=== PATIENT | female | born 1985 | race Caucasian/White ===

== ENCOUNTER → 2017-09-13 12:03 | Outpatient (CLI) | payer MEDICAID, SELFPAY ==
[2017-09-14 08:58] LABS: HIV - WCH Non-Reactive (Nonreactive)
[2017-09-14 20:08] LABS: HCV Quant. RNA PCR HCV Not Detected IU/mL (.)
[2017-09-15 08:22] LABS: HEPATITIS B SURFACE AG Negative (Negative); HSV 1 IgG < 0.91 index (0.00-0.90); HSV 2 IgG < 0.91 index (0.00-0.90)
[2017-09-16 03:45] LABS: Rapid Plasmin Reagin (RPR) NONREACTIVE (NONREACTIVE)
== END ==
PROVIDERS: Family Provider Family Medicine; PCP Family Medicine; Visit Provider Nurse Practitioner Women's Health
DX: Z11.3 Encounter for screening for infections with a predominantly sexual mode of transmission (principal)
CPT/HCPCS: 36415; 86592; 86695; 86696; 86703; 87340; 87491; 87522; 87591

== ENCOUNTER → 2017-09-13 14:14 | Outpatient (CLI) | payer MEDICAID, SELFPAY ==
[2017-09-13 15:59] LABS: Chlamydia Trachomatis by PCR Negative (Negative); Neisserai gonorrhoeae by PCR Negative (Negative); Probe Check PASS; Sample Adequacy Control PASS; Specimen Processing Control PASS
== END ==
PROVIDERS: Family Provider Family Medicine; Visit Provider Nurse Practitioner Women's Health
DX: Z11.3 Encounter for screening for infections with a predominantly sexual mode of transmission (principal)
CPT/HCPCS: 87491; 87591

== ENCOUNTER → 2018-12-01 16:36 | Outpatient (CLI) | payer MEDICAID, SELFPAY ==
[2018-12-01 15:44] VITALS: BMI 39.4
[2018-12-01 18:32] LABS: Chlamydia Trachomatis by PCR Negative (Negative); Neisserai gonorrhoeae by PCR Negative (Negative); Probe Check PASS; Sample Adequacy Control PASS; Specimen Processing Control PASS
== END ==
PROVIDERS: Family Provider Family Medicine; PCP Family Medicine; Referring Provider Nurse Practitioner Women's Health; Visit Provider Nurse Practitioner Women's Health
DX: N89.8 Other specified noninflammatory disorders of vagina (principal); Z11.3 Encounter for screening for infections with a predominantly sexual mode of transmission
CPT/HCPCS: 87070; 87205; 87491; 87591

== ENCOUNTER → 2019-01-04 17:16 | Outpatient (CLI) | payer MEDICAID, SELFPAY ==
[2019-01-04 15:24] VITALS: BMI 39.4
== END ==
PROVIDERS: Family Provider Family Medicine; PCP Family Medicine; Referring Provider Nurse Practitioner Women's Health; Visit Provider Nurse Practitioner Women's Health
DX: N76.0 Acute vaginitis (principal)
CPT/HCPCS: 87070; 87205

== ENCOUNTER → 2019-08-21 15:46 | Outpatient (CLI) | payer MEDICAID, SELFPAY ==
[2019-08-21 11:21] VITALS: BMI 39.4
[2019-08-21 18:06] LABS: Chlamydia Trachomatis by PCR Negative (Negative); Neisserai gonorrhoeae by PCR Negative (Negative); Probe Check PASS; Sample Adequacy Control PASS; Specimen Processing Control PASS
== END ==
PROVIDERS: PCP Family Medicine; Referring Provider Nurse Practitioner Women's Health; Visit Provider Nurse Practitioner Women's Health
DX: Z11.3 Encounter for screening for infections with a predominantly sexual mode of transmission (principal); N76.0 Acute vaginitis
CPT/HCPCS: 87070; 87205; 87491; 87591

== ENCOUNTER → 2019-10-11 11:30 | Outpatient (CLI) | payer MEDICAID, SELFPAY ==
[2019-10-11 11:52] VITALS: BMI 39.4
[2019-10-11 19:58] LABS: Chlamydia Trachomatis by PCR Negative (Negative); Neisserai gonorrhoeae by PCR Negative (Negative); Probe Check PASS; Sample Adequacy Control PASS; Specimen Processing Control PASS
== END ==
PROVIDERS: Nurse Practitioner Women's Health; PCP Family Medicine; Referring Provider Obstetrics & Gynecology; Visit Provider Obstetrics & Gynecology
DX: Z11.3 Encounter for screening for infections with a predominantly sexual mode of transmission (principal)
CPT/HCPCS: 87491; 87591

== ENCOUNTER → 2019-11-07 14:45 | Outpatient (CLI) | payer MEDICAID, SELFPAY ==
[2019-11-07 14:25] VITALS: BMI 39.4
[2019-11-07 16:13] LABS: HIV - WCH Non-Reactive (Nonreactive)
[2019-11-08 00:55] LABS: Rapid Plasmin Reagin (RPR) NONREACTIVE (NONREACTIVE)
[2019-11-11 06:48] LABS: HCV Quant. RNA PCR HCV Not Detected IU/mL (.)
[2019-11-11 11:15] LABS: HSV 1 IgG < 0.91 index (0.00-0.90); HSV 2 IgG < 0.91 index (0.00-0.90)
== END ==
PROVIDERS: PCP Family Medicine; Referring Provider Nurse Practitioner Women's Health; Visit Provider Nurse Practitioner Women's Health
DX: Z11.3 Encounter for screening for infections with a predominantly sexual mode of transmission (principal); N89.8 Other specified noninflammatory disorders of vagina
CPT/HCPCS: 36415; 86592; 86695; 86696; 86703; 87070; 87205; 87522

== ENCOUNTER → 2019-12-06 16:24 | Outpatient (CLI) | payer MEDICAID, SELFPAY ==
[2019-12-06 15:32] VITALS: BMI 36.3
== END ==
PROVIDERS: PCP Family Medicine; Referring Provider Nurse Practitioner Women's Health; Visit Provider Nurse Practitioner Women's Health
DX: N89.8 Other specified noninflammatory disorders of vagina (principal); R30.0 Dysuria
CPT/HCPCS: 87070; 87086; 87088; 87205

== ENCOUNTER → 2020-02-21 09:56 | Outpatient (CLI) | payer MEDICAID, SELFPAY ==
[2020-02-20 17:09] VITALS: BMI 39.4
[2020-02-21 10:20] LABS: Mucous, Urine 0 SEEN /hpf (<or=2+)
[2020-02-21 10:27] LABS: Color, Urine Yellow (Yellow); Glucose, Dipstick Normal (Normal); Ketone-Dipstick Negative (Negative); Leukocyte Esterase-Dipstick 500 /ul (Negative); Nitrite-Dipstick Negative (Negative); Occult Blood-Urine 25 /ul (Negative); Protein-Dipstick 15 mg/dl (Negative); Urine Bilirubin Dipstick Negative (Negative); Urine Clarity Sl. Cloudy (Clear); Urine Urobilinogen Normal (Normal)
[2020-02-21 10:38] LABS: Bacteria 1+ /hpf (None Seen); Red Blood Cells-Urine 0-5 SEEN /hpf (0-5); Squamous Epithelial Cells - UA 0-5 SEEN /hpf (5-10); White Blood Cells 25-50 SEEN /hpf (0-5)
== END ==
PROVIDERS: PCP Family Medicine; Referring Provider Physician Assistant; Visit Provider Physician Assistant
DX: R35.0 Frequency of micturition (principal)
CPT/HCPCS: 81001; 87086; 87088

== ENCOUNTER → 2020-02-29 16:52 | Outpatient (CLI) | payer MEDICAID, SELFPAY ==
[2020-02-29 13:41] VITALS: BMI 39.4
[2020-03-04 20:07] LABS: Chlamydia By Nucleic Acid AMP Negative (Negative)
[2020-03-04 20:49] LABS: Gonococcus By Nucleic Acid AMP Negative (Negative)
== END ==
PROVIDERS: PCP Family Medicine; Referring Provider Obstetrics & Gynecology; Visit Provider Obstetrics & Gynecology
DX: Z11.3 Encounter for screening for infections with a predominantly sexual mode of transmission (principal); N89.8 Other specified noninflammatory disorders of vagina; R30.0 Dysuria
CPT/HCPCS: 87070; 87086; 87205; 87491; 87591

== ENCOUNTER → 2020-03-19 16:49 | Outpatient (CLI) | payer MEDICAID, SELFPAY ==
[2020-03-19 14:31] VITALS: BMI 32.5
[2020-03-24 14:27] LABS: HPV APTIMA, High Risk Negative (Negative)
== END ==
PROVIDERS: PCP Family Medicine; Visit Provider Nurse Practitioner Women's Health
DX: Z12.4 Encounter for screening for malignant neoplasm of cervix (principal); N89.8 Other specified noninflammatory disorders of vagina
CPT/HCPCS: 87070; 87205; 87624; 88175; G0145

== ENCOUNTER → 2021-11-03 | Outpatient (CLI) | payer MEDICAID, SELFPAY ==
[2021-11-05 22:07] LABS: Chlamydia By Nucleic Acid AMP Negative (Negative)
[2021-11-06 08:46] LABS: Gonococcus By Nucleic Acid AMP Negative (Negative)
== END | disposition home or self-care (01) ==
LOC: LABSPEC 16:37
PROVIDERS: PCP Family Medicine; Visit Provider Nurse Practitioner Women's Health
DX: Z11.3 Encounter for screening for infections with a predominantly sexual mode of transmission (principal)
CPT/HCPCS: 87491; 87591

== ENCOUNTER → 2021-12-30 | Outpatient (CLI) | payer MEDICAID, SELFPAY | END | disposition home or self-care (01) | LOC: LABSPEC 16:38 | PROVIDERS: PCP Family Medicine; Visit Provider Obstetrics & Gynecology | DX: N89.8 Other specified noninflammatory disorders of vagina (principal) | CPT/HCPCS: 87070; 87205 ==

== ENCOUNTER 2022-07-28 07:13 | Emergency (ER) | payer BC, MEDICAID, SELFPAY ==
[2022-07-28 07:14] VITALS: BP 143/95; PULSE 87; RESP 16; TEMP 36.6; O2SAT 99; BMI 33.7
--- NOTE | 2022-07-28 07:48 | ED.VIS.LOWEX ---
HPI History of Present Illness Chief Complaint: Laceration Narrative Narrative: 37-year-old female presenting with laceration to the right foot. It is at the plantar surface of the fifth toe and somewhat extends into the fourth and fifth space. Patient states he was walking on the stairs and stepped on a bed frame that was in the hallway. She states bleeding was well controlled. She does have some pain in the right fifth toe and the area between her fourth and fifth toes. She has been ambulatory. Last tetanus unknown. PFSH PFS Medical History Anxiety delivery delivered Dandruff in adult Depression Seasonal allergies Home Medications atomoxetine 40 mg capsule 100 mg PO DAILY 02/20/20 [History Last Taken Unknown] venlafaxine 75 mg capsule,extended release 24 hr 150 mg PO DAILY 03/19/20 [History Last Taken Unknown] buspirone 15 mg tablet 10 mg PO DAILY 11/03/21 [History Last Taken Unknown] desogestrel 0.15 mg-ethinyl estradiol 0.03 mg tablet (Apri) 1 tab PO QDAY #84 tabs 11/03/21 [Rx Last Taken Unknown] Allergy/AdvReac Type Severity Reaction Status Date / Time bee venom protein (honey bee) Allergy Intermediate Swelling Verified 07/28/22 07:14 beeswax Allergy Swelling Verified 07/28/22 07:14 Family History Grandmother Breast cancer Mother celiac Father Alcohol abuse Aunt Pancreatic cancer Surgical History H/O tooth extraction History of ear surgery History of wisdom tooth extraction, class II edentulism Social History current occupational status: employed current occupation: [employer] Smoking Status: Never smoker alcohol intake: current alcohol intake frequency: holidays/special occasions only substance use type: does not use caffeine: Yes what type of physical activity do you participate in: none seatbelt use: always do you feel safe at home: Yes ROS ROS ED Constitutional Constitutional ED: Denies chills, fever(s) or sweats Eyes Eyes: Denies blurry vision or change in vision ENT ENT ED: Denies ear pain or sore throat Cardiovascular Cardiovascular: Denies chest pain, palpitations or racing heartbeat Respiratory/Chest Respiratory/Chest: Denies cough, dyspnea or sputum Gastrointestinal Gastrointestinal: Denies abdominal pain, constipation, diarrhea, nausea or vomiting Genitourinary Genitourinary ED: Denies dysuria, hematuria or urinary frequency Musculoskeletal Musculoskeletal: Denies arthralgias, myalgias or neck pain Integumentary Reports other Details: Laceration base of fifth toe ; Denies abscess or rash Neurologic Neurologic: Denies headache(s), paresthesias or weakness Psychiatric Psychiatric: Denies anxiety, depression, suicidal ideation or suicidal thoughts Endocrine Endocrinology: Denies polydipsia or polyuria EXAM Physical Exam Const Vital Signs: 07/28/22 07:14 07/28/22 09:00 Temperature 97.9 F 97.8 F Temperature Source Oral Pulse Rate 87 78 Respiratory Rate 16 16 Blood Pressure 143/95 H 134/78 H Blood Pressure Mean 111 Pulse Ox 99 99 Oxygen Delivery Method Room Air General Appearance ED: Negative for pallor HEENT Reports normocephalic, head/scalp atraumatic and moist mucous membranes Eyes PERRL and EOMs intact bilaterally Neck no lymphadenopathy and supple Chest Wall inspection of chest normal and palpation of chest normal Resp normal respiratory effort and clear to auscultation bilaterally Auscultation: Negative for rales, rhonchi or wheezes Cardio regular rate and regular rhythm GI normal to inspection, nondistended, normoactive bowel sounds and non-distended Auscultation: normoactive bowel sounds Palpation: soft Narrative: Deferred Back/Spine no CVA tenderness General Back: Negative for CVA tenderness Cervical Spine: Negative for cervical spine tenderness Extremity normal to inspection General Extremety ED: Yes edema and tenderness General Extremity: edema Neuro oriented x3 and CN's II-XII intact bilaterally Sensorium / Orientation: alert Motor Exam: strength 5/5 throughout Psych mental status grossly normal Attitude: No agitated Skin Skin Narrative: Laceration of the right plantar fifth toe extending from the midline to 1 cm medially. Good approximation of the wound margins. No active bleeding. Neurovascular intact brisk cap refill to all 5 toes. General Skin Exam: Negative for jaundice or pallor MDM MDM MDM Narrative Medical decision making narrative: Patient medicated with ibuprofen. Tetanus was updated. X-ray to assess for fracture. Patient would likely need a couple of sutures to pull this together with the right foot. Patient's wound was x-rayed and on my interpretation there are no acute fractures. Radiologist represents and agree. When the patient came back from radiology her foot was soaked in warm soapy water for about 15 minutes. Wound was then anesthetized with 3 cc of lidocaine without epinephrine. Good anesthesia achieved. two 4?0 Ethilon sutures placed with good proximation of the wound margins. Tetanus was updated. Patient had her wound dressed. She is placed in a postop shoe. She is counseled to keep the postop shoe on while she is working. She did state that she supposed to wear boots with steel toes and then at work. I did give her some work precautions and a work note for limitations. Patient discharged stable condition. Impression: 1. Right foot contusion 2. 1 cm right foot last Lab Data Attestation: I reviewed the patient's lab results. Radiography Diagnostic Testing: Clinical Impression(s) from Imaging Studies Foot X-Ray 07/28/22 07:55 IMPRESSION: Small plantar spur. Electronically Signed: Dick Dozier MD at 8:13 EST , Discharge Plan Triage Chief Complaint: Laceration Other Complaint: Lower Extremity Injury ED Provider: Josh Manley Dx/Rx/DC Orders Instructions: ED Contusion, Lower Extremity, ED Laceration, Foot: All Closures Prescriptions: No Action atomoxetine 40 mg capsule 100 mg PO DAILY venlafaxine 75 mg capsule,extended release 24hr 150 mg PO DAILY buspirone 15 mg tablet 10 mg PO DAILY desogestrel-ethinyl estradiol [Apri] 0.15-0.03 mg tablet 1 tab PO QDAY Qty: 84 4RF Stand Alone Forms: ED Work / School Excuse, Work Status Form Primary Care Provider: Memo Freitas Referrals: Memo Freitas MD [Primary Care Provider] - Disposition Disposition: Home, Self Care Discharge Date/Time: 07/28/22 09:19
--- NOTE | 2022-07-28 07:55 | RAD_ITS ---
STUDY: X-RAY - RIGHT FOOT CLINICAL: Female, 37 years old. Injury to the fifth toe. TECHNIQUE: 3 view(s) of the foot. COMPARISON: None. FINDINGS: There is a plantar calcaneal spur. Normal visualized subtalar, talonavicular, calcaneocuboid, tarsal and tarsometatarsal articulations. Normal metatarsi. Normal metatarsophalangeal joint of the great toe. Normal tibial and fibular sesamoid bones. Normal interphalangeal joint of the great toe. Normal phalanges of the great toe. Normal second through fifth metatarsophalangeal joints. Normal interphalangeal joints and phalanges of the lesser toes. The soft tissue structures are unremarkable. RAD/Foot min 3 Views IMPRESSION: Small plantar spur. Electronically Signed: Dick Dozier MD at 8:13 EST ,
[2022-07-28] MEDS: Ibuprofen 600 MG Tablet PO (08:07)
[2022-07-28] MEDS: Diphth,Pertuss(Acell),Tet Vac 0.5 ML Vial IM (08:07)
[2022-07-28 09:00] VITALS: BP 134/78; PULSE 78; RESP 16; TEMP 36.6; O2SAT 99
[2022-07-28] MEDS: Lidocaine 1% (20 ml mdv) 20 ML Vial 200 ML INFILT (09:12)
== END 2022-07-28 09:19 | disposition home or self-care (01) ==
PROVIDERS: Emergency Provider Student in an Organized Health Care Education/Training Program; PCP Family Medicine; Visit Provider Student in an Organized Health Care Education/Training Program
DX: S90.31XA Contusion of right foot, initial encounter (principal); S91.311A Laceration without foreign body, right foot, initial encounter; F41.9 Anxiety disorder, unspecified; F32.A Depression, unspecified; Z79.899 Other long term (current) drug therapy; Z23 Encounter for immunization
CPT/HCPCS: 73630; 90471; 90715; 99285

== ENCOUNTER → 2022-11-09 | Outpatient (CLI) | payer BC, MEDICAID, SELFPAY ==
[2022-11-09 17:16] LABS: HIV - WCH Non-Reactive (Nonreactive); Hepatitis C Antibody Non-Reactive (Nonreactive); Syphilis Antibodies Non-reactive
[2022-11-11 05:07] LABS: HSV 1 IgG < 0.91 index (0.00-0.90); HSV 2 IgG < 0.91 index (0.00-0.90)
[2022-11-12 10:08] LABS: Chlamydia By Nucleic Acid AMP Negative (Negative); Gonococcus By Nucleic Acid AMP Negative (Negative)
== END | disposition home or self-care (01) ==
PROVIDERS: PCP Family Medicine; Referring Provider Nurse Practitioner Women's Health; Visit Provider Nurse Practitioner Women's Health
DX: Z20.2 Contact with and (suspected) exposure to infections with a predominantly sexual mode of transmission (principal)
CPT/HCPCS: 36415; 86695; 86696; 86703; 86780; 86803; 87491; 87591

== ENCOUNTER → 2023-06-07 | Outpatient (CLI) | payer OTHER, SELFPAY ==
--- OUTSIDE RECORDS SUMMARY | 2023-06-07 18:30 | XMS RPT_ITS | CCD ---
Author Name Unknown Address [address] [place] [address] Organization [facility] Care Team Providers [employer] Name Role Phone Marian Macedo MD Unavailable [phone] Erlin Lawson MD Primary Care Provider Erlin Lawson MD Primary Care Provider Erlin Lawson MD Primary Care Provider Erlin Lawson MD Primary Care Provider ERLIN LAWSNO Attending Unavailable ERLIN LAWSON Primary Care Unavailable ERLIN LAWSON Primary Care Unavailable ERLIN LAWSON Attending Unavailable ERLIN LAWSON Primary Care Unavailable ERLIN LAWSON Primary Care Unavailable ERLIN LAWSON Primary Care Unavailable ERLIN LAWSON Primary Care Unavailable ERLIN LAWSON Primary Care Unavailable ERLIN LAWSON Primary Care Unavailable ERLIN LAWSON Primary Care Unavailable ERLIN LAWSON Primary Care Unavailable ERLIN LAWSON Primary Care Unavailable ERLIN LAWSON Attending Unavailable ERLIN LAWSON Primary Care Unavailable ERLIN LAWSON Primary Care Unavailable ERLIN LAWSON Primary Care Unavailable ERLIN LAWSON Attending Unavailable ERLIN LAWSON Primary Care Unavailable ERLIN LAWSON Primary Care Unavailable CLYDE GALE Attending Unavailable ERLIN LAWSON Primary Care Unavailable CLYDE GALE Referring Unavailable ERLIN LAWSON Primary Care Unavailable ERLIN LAWSON Primary Care Unavailable CLYDE GALE Attending Unavailable ERLIN LAWSON Primary Care Unavailable ERLIN LAWSON Primary Care Unavailable ERLIN LAWSON Primary Care Unavailable CLYDE GALE Attending Unavailable Allergies Allergy Classification Reported Allergen(s) Allergy Type Date of Onset Reaction(s) Facility (2 sources) Oxytocin Drug Allergy 7 [facility] (20 sources) Bees; Translations: [BEES] Propensity to adverse reactions 9 [facility] Medications Current Medications Medication Drug Class(es) Dates Sig (Normalized) Sig (Original) amoxicillin 875 mg oral tablet (3 sources) Penicillin-class Antibacterial Start: 08-02-2022 End: 08-09-2022 take 1 tablet by mouth twice daily amoxicillin (AMOXIL) 875 mg tablet Indications: Other acute nonsuppurative otitis media of right ear, recurrence not specified Take 1 tablet by mouth twice daily for 7 days. 14 tablet 0 08/02/2022 08/09/2022 Active Completed/Discontinued Medications Medication Drug Class(es) Dates Sig (Normalized) Sig (Original) atomoxetine 100 mg oral capsule (20 sources) Norepinephrine Reuptake Inhibitor Start: 05-06-2021 End: 10-06-2022 take 1 capsule by mouth once daily atomoxetine (STRATTERA) 100 mg capsule Indications: Attention deficit disorder, unspecified hyperactivity presence Take 1 capsule by mouth once daily. 30 capsule 5 10/06/2022 Active Problems Active Problems Problem Classification Problem Date Documented Da te Episodic/Chronic Abdominal pain (1 source) Lower abdominal pain; Translations: [Lower abdominal pain, unspecified] Episodic Anxiety disorders (20 sources) Anxiety; Translations: [Anxiety disorder, unspecified] Onset: 02-28-2014 02-28-2014 Chronic Disorders of teeth and jaw (1 source) Infection of tooth; Translations: [Periapical abscess without sinus] Episodic Disorders usually diagnosed in infancy, childhood, or adolescence (20 sources) Attention deficit hyperactivity disorder, predominantly inattentive type; Translations: [Other specified behavioral and emotional disorders with onset usually occurring in childhood and adolescence] Onset: 08-15-2019 08-15-2019 Chronic Genitourinary symptoms and ill-defined conditions (1 source) Urinary incontinence; Translations: [Unspecified urinary incontinence] Chronic Genitourinary symptoms and ill-defined conditions (1 source) Urinary symptoms ; Translations: [Unspecified symptoms and signs involving the genitourinary system] Episodic Inflammatory diseases of female pelvic organs (1 source) Acute vaginitis; Translations: [Acute vaginitis] Episodic Menstrual disorders (2 sources) Secondary amenorrhea; Translations: [Secondary amenorrhea] Chronic Mood disorders (20 sources) Recurrent depression; Translations: [Depressive disorder] Onset: 02-28-2014 01-03-2017 Chronic Mycoses (1 source) Candidiasis of vagina; Translations: [Vaginal yeast infection] Episodic Nutritional deficiencies (1 source) Vitamin D deficiency; Translations: [Vitamin D deficiency, unspecified] Chronic Nutritional deficiencies (11 sources) Cobalamin deficiency; Translations: [Deficiency of other specified B group vitamins] Episodic Other connective tissue disease (1 source) Cramp in lower limb; Translations: [Cramp and spasm] Episodic Other eye disorders (1 source) Pain of right eye; Translations: [Ocular pain, right eye] Episodic Other female genital disorders (2 sources) Vaginal discharge; Translations: [Other specified noninflammatory disorders of vagina] Episodic Other gastrointestinal disorders (1 source) Finding of abdomen; Translations: [Other specified symptoms and signs involving the digestive system and abdomen] Episodic Other injuries and conditions due to external causes (1 source) Contusion; Translations: [Other injury of unspecified body region, initial encounter] Episodic Other nutritional; endocrine; and metabolic disorders (2 sources) Obese class I; Translations: [Obesity, unspecified] Chronic Other upper respiratory infections (1 source) Bacterial sinusitis; Translations: [Chronic sinusitis, unspecified] Chronic Otitis media and related conditions (2 sources) Acute bilateral otitis media ; Translations: [Otitis media, unspecified, bilateral] Episodic Residual codes; unclassified (1 source) Amnesia; Translations: [Other amnesia] Episodic Residual codes; unclassified (1 source) Treatment not available; Translations: [Procedure and treatment not carried out for other reasons] 05-07-2023 Episodic Urinary tract infections (1 source) Urinary tract infectious disease; Translations: [Urinary tract infection, site not specified] Episodic Past or Other Problems Problem Classification Problem Date Documented Da te Episodic/Chronic Immunizations and screening for infectious disease (5 sources) Suspected disease caused by 2019-nCoV; Translations: [Suspected COVID-19 virus infection] Onset: 07-07-2022 Episodic Other screening for suspected conditions (not mental disorders or infectious disease) (2 sources) Patient encounter status; Translations: [Encounter for test, result unknown] Onset: 07-08-2022 Episodic Other skin disorders (20 sources) Acne; Translations: [Acne, unspecified] Onset: 02-28-2014 02-28-2014 Episodic Spondylosis; intervertebral disc disorders; other back problems (20 sources) Cervical radiculitis; Translations: [Radiculopathy, cervical region] Onset: 07-11-2015 07-11-2015 Episodic Results Test Name Value Interpretation Reference Range Facil ity Vital Signs Date Time Vital Sign Value Performing Clinician Adam franklin 01-06-2023 12:45-0400 Body temperature 98.29 [degF] Krislyn Aberegg PA Work Phone: [facility] 01-06-2023 12:45-0400 Body weight 95.89 kg Krislyn Aberegg PA Work Phone: [facility] 01-06-2023 12:45-0400 Diastolic blood pressure 86 mm[Hg] Krislyn Aberegg PA Work Phone: [facility] 01-06-2023 12:45-0400 Heart rate 79 /min Krislyn Aberegg PA Work Phone: [facility] 01-06-2023 12:45-0400 Respiratory rate 18 /min Krislyn Aberegg PA Work Phone: [facility] 01-06-2023 12:45-0400 SaO2% (BldA) [Mass fraction] 100 % Krislyn Aberegg PA Work Phone: [facility] 01-06-2023 12:45-0400 Systolic blood pressure 150 mm[Hg] Krislyn Aberegg PA Work Phone: [facility] 12-09-2022 16:29-0400 Body temperature 97.59 [degF] Amor Chapa DARKROOM TECHNICIAN.FINANCIAL SALES REPRESENTATIVE Work Phone: [facility] 12-09-2022 16:29-0400 Body weight 94.8 kg Amor Chapa DARKROOM TECHNICIAN.FINANCIAL SALES REPRESENTATIVE Work Phone: [facility] 12-09-2022 16:29-0400 Diastolic blood pressure 94 mm[Hg] Amor Chapa DARKROOM TECHNICIAN.FINANCIAL SALES REPRESENTATIVE Work Phone: [facility] 12-09-2022 16:29-0400 Heart rate 94 /min Amor Chapa DARKROOM TECHNICIAN.FINANCIAL SALES REPRESENTATIVE Work Phone: [facility] 12-09-2022 16:29-0400 Respiratory rate 18 /min Amor Chapa DARKROOM TECHNICIAN.FINANCIAL SALES REPRESENTATIVE Work Phone: [facility] 12-09-2022 16:29-0400 SaO2% (BldA) [Mass fraction] 97 % Amor Chapa DARKROOM TECHNICIAN.FINANCIAL SALES REPRESENTATIVE Work Phone: [facility] 12-09-2022 16:29-0400 Systolic blood pressure 158 mm[Hg] Amor Chapa DARKROOM TECHNICIAN.FINANCIAL SALES REPRESENTATIVE Work Phone: [facility] 12-01-2022 14:18-0400 Body weight 94.35 kg Clydedanilo Gillespiehof DARKROOM TECHNICIAN.FINANCIAL SALES REPRESENTATIVE Work Phone: [facility] 12-01-2022 14:18-0400 Diastolic blood pressure 90 mm[Hg] Clyde Tannhof DARKROOM TECHNICIAN.FINANCIAL SALES REPRESENTATIVE Work Phone: [facility] 12-01-2022 14:18-0400 Heart rate 92 /min Clyde Tannhof DARKROOM TECHNICIAN.FINANCIAL SALES REPRESENTATIVE Work Phone: [facility] 12-01-2022 14:18-0400 Respiratory rate 16 /min Clyde Tannhof DARKROOM TECHNICIAN.FINANCIAL SALES REPRESENTATIVE Work Phone: [facility] 12-01-2022 14:18-0400 SaO2% (BldA) [Mass fraction] 98 % Clyde Tannhof DARKROOM TECHNICIAN.FINANCIAL SALES REPRESENTATIVE Work Phone: [facility] 12-01-2022 14:18-0400 Systolic blood pressure 130 mm[Hg] Clyde Tannhof DARKROOM TECHNICIAN.FINANCIAL SALES REPRESENTATIVE Work Phone: [facility] 11-02-2022 10:40-0400 Body temperature 99.19 [degF] Angelina Patino DARKROOM TECHNICIAN.FINANCIAL SALES REPRESENTATIVE Work Phone: [facility] 11-02-2022 10:40-0400 Body weight 92.63 kg Angelina Patino DARKROOM TECHNICIAN.FINANCIAL SALES REPRESENTATIVE Work Phone: [facility] 11-02-2022 10:40-0400 Diastolic blood pressure 82 mm[Hg] Angelina Patino DARKROOM TECHNICIAN.FINANCIAL SALES REPRESENTATIVE Work Phone: [facility] 11-02-2022 10:40-0400 Heart rate 82 /min Angelina Patino DARKROOM TECHNICIAN.FINANCIAL SALES REPRESENTATIVE Work Phone: [facility] 11-02-2022 10:40-0400 Respiratory rate 16 /min Angelina Patino DARKROOM TECHNICIAN.FINANCIAL SALES REPRESENTATIVE Work Phone: [facility] 11-02-2022 10:40-0400 SaO2% (BldA) [Mass fraction] 99 % Angelina Patino DARKROOM TECHNICIAN.FINANCIAL SALES REPRESENTATIVE Work Phone: [facility] 11-02-2022 10:40-0400 Systolic blood pressure 128 mm[Hg] Angelina Patino DARKROOM TECHNICIAN.FINANCIAL SALES REPRESENTATIVE Work Phone: [facility] 09-18-2022 08:11-0400 Body temperature 97.81 [degF] López Isaana maríamariaelena DARKROOM TECHNICIAN.FINANCIAL SALES REPRESENTATIVE Work Phone: [facility] 09-18-2022 08:11-0400 Body weight 95.71 kg López Hairstonmariaelena DARKROOM TECHNICIAN.FINANCIAL SALES REPRESENTATIVE Work Phone: [facility] 09-18-2022 08:11-0400 Diastolic blood pressure 72 mm[Hg] López Buck DARKROOM TECHNICIAN.FINANCIAL SALES REPRESENTATIVE Work Phone: [facility] 09-18-2022 08:11-0400 Heart rate 86 /min López Buck DARKROOM TECHNICIAN.FINANCIAL SALES REPRESENTATIVE Work Phone: [facility] 09-18-2022 08:11-0400 Respiratory rate 16 /min López Isalemariaelena DARKROOM TECHNICIAN.FINANCIAL SALES REPRESENTATIVE Work Phone: [facility] 09-18-2022 08:11-0400 SaO2% (BldA) [Mass fraction] 100 % López Mosslemariaelena DARKROOM TECHNICIAN.FINANCIAL SALES REPRESENTATIVE Work Phone: [facility] 09-18-2022 08:11-0400 Systolic blood pressure 120 mm[Hg] López Jane DARKROOM TECHNICIAN.FINANCIAL SALES REPRESENTATIVE Work Phone: [facility] 08-18-2022 15:47-0400 Body temperature 98.01 [degF] Amor Chapa DARKROOM TECHNICIAN.FINANCIAL SALES REPRESENTATIVE Work Phone: [facility] 08-18-2022 15:47-0400 Body weight 90.72 kg Amor Chapa DARKROOM TECHNICIAN.FINANCIAL SALES REPRESENTATIVE Work Phone: [facility] 08-18-2022 15:47-0400 Diastolic blood pressure 88 mm[Hg] Amor Chapa DARKROOM TECHNICIAN.FINANCIAL SALES REPRESENTATIVE Work Phone: [facility] 08-18-2022 15:47-0400 Heart rate 90 /min Amor Chapa DARKROOM TECHNICIAN.FINANCIAL SALES REPRESENTATIVE Work Phone: [facility] 08-18-2022 15:47-0400 Respiratory rate 22 /min Amor Chapa DARKROOM TECHNICIAN.FINANCIAL SALES REPRESENTATIVE Work Phone: [facility] 08-18-2022 15:47-0400 SaO2% (BldA) [Mass fraction] 98 % Amor Chapa DARKROOM TECHNICIAN.FINANCIAL SALES REPRESENTATIVE Work Phone: [facility] 08-18-2022 15:47-0400 Systolic blood pressure 142 mm[Hg] Amor Chapa DARKROOM TECHNICIAN.FINANCIAL SALES REPRESENTATIVE Work Phone: [facility] 08-02-2022 15:50-0500 Body temperature 98.8 [degF] Debi Praisler-Wood DARKROOM TECHNICIAN.FINANCIAL SALES REPRESENTATIVE Work Phone: [facility] 08-02-2022 15:50-0500 Body weight 90.99 kg Debi Praisler-Wood DARKROOM TECHNICIAN.FINANCIAL SALES REPRESENTATIVE Work Phone: [facility] 08-02-2022 15:50-0500 Diastolic blood pressure 78 mm[Hg] Debi Praisler-Wood DARKROOM TECHNICIAN.FINANCIAL SALES REPRESENTATIVE Work Phone: [facility] 08-02-2022 15:50-0500 Heart rate 100 /min Debi Praisler-Wood DARKROOM TECHNICIAN.FINANCIAL SALES REPRESENTATIVE Work Phone: [facility] 08-02-2022 15:50-0500 Respiratory rate 25 /min Debi Praisler-Wood DARKROOM TECHNICIAN.FINANCIAL SALES REPRESENTATIVE Work Phone: [facility] 08-02-2022 15:50-0500 SaO2% (BldA) [Mass fraction] 99 % Debi Praisler-Wood DARKROOM TECHNICIAN.FINANCIAL SALES REPRESENTATIVE Work Phone: [facility] 08-02-2022 15:50-0500 Systolic blood pressure 132 mm[Hg] Debi Praisler-Wood DARKROOM TECHNICIAN.FINANCIAL SALES REPRESENTATIVE Work Phone: [facility] 07-26-2022 15:27-0500 Body temperature 98.6 [degF] Chanelle Anselmo DARKROOM TECHNICIAN.FINANCIAL SALES REPRESENTATIVE Work Phone: [facility] 07-26-2022 15:27-0500 Body weight 90.72 kg Chanelle Anselmo DARKROOM TECHNICIAN.FINANCIAL SALES REPRESENTATIVE Work Phone: [facility] 07-26-2022 15:27-0500 Diastolic blood pressure 94 mm[Hg] Chanelle Anselmo DARKROOM TECHNICIAN.FINANCIAL SALES REPRESENTATIVE Work Phone: [facility] 07-26-2022 15:27-0500 Heart rate 97 /min Chanelle Anselmo DARKROOM TECHNICIAN.FINANCIAL SALES REPRESENTATIVE Work Phone: [facility] 07-26-2022 15:27-0500 Respiratory rate 18 /min Chanelle Anselmo DARKROOM TECHNICIAN.FINANCIAL SALES REPRESENTATIVE Work Phone: [facility] 07-26-2022 15:27-0500 SaO2% (BldA) [Mass fraction] 98 % Chanelle Anselmo DARKROOM TECHNICIAN.FINANCIAL SALES REPRESENTATIVE Work Phone: [facility] 07-26-2022 15:27-0500 Systolic blood pressure 142 mm[Hg] Chanelle Anselmo DARKROOM TECHNICIAN.FINANCIAL SALES REPRESENTATIVE Work Phone: [facility] 07-07-2022 17:46-0500 Body weight 88.91 kg Clyde Tannhof DARKROOM TECHNICIAN.FINANCIAL SALES REPRESENTATIVE Work Phone: [facility] 07-07-2022 17:46-0500 Diastolic blood pressure 90 mm[Hg] Clyde Tannhof DARKROOM TECHNICIAN.FINANCIAL SALES REPRESENTATIVE Work Phone: [facility] 07-07-2022 17:46-0500 Heart rate 82 /min Clyde Gillespiehof DARKROOM TECHNICIAN.FINANCIAL SALES REPRESENTATIVE Work Phone: [facility] 07-07-2022 17:46-0500 Respiratory rate 16 /min Clyde Gillespiehof DARKROOM TECHNICIAN.FINANCIAL SALES REPRESENTATIVE Work Phone: [facility] 07-07-2022 17:46-0500 SaO2% (BldA) [Mass fraction] 99 % Clyde Gillespiehof DARKROOM TECHNICIAN.FINANCIAL SALES REPRESENTATIVE Work Phone: [facility] 07-07-2022 17:46-0500 Systolic blood pressure 130 mm[Hg] Clyde Gillespiehof DARKROOM TECHNICIAN.FINANCIAL SALES REPRESENTATIVE Work Phone: [facility] 07-05-2022 18:57-0500 Body weight 88.81 kg Erlin Lawson MD Work Phone: [facility] 07-05-2022 18:57-0500 Diastolic blood pressure 86 mm[Hg] Erlin Lawson MD Work Phone: [facility] 07-05-2022 18:57-0500 Heart rate 80 /min Erlin Lawson MD Work Phone: [facility] 07-05-2022 18:57-0500 Respiratory rate 16 /min Erlin Lawson MD Work Phone: [facility] 07-05-2022 18:57-0500 Systolic blood pressure 134 mm[Hg] Erlin Lawson MD Work Phone: [facility] 06-17-2022 10:03-0500 Body temperature 98.49 [degF] López Jane DARKROOM TECHNICIAN.FINANCIAL SALES REPRESENTATIVE Work Phone: [facility] 06-17-2022 10:03-0500 Body weight 90.81 kg López Jane DARKROOM TECHNICIAN.FINANCIAL SALES REPRESENTATIVE Work Phone: [facility] 06-17-2022 10:03-0500 Diastolic blood pressure 86 mm[Hg] López Jane DARKROOM TECHNICIAN.FINANCIAL SALES REPRESENTATIVE Work Phone: [facility] 06-17-2022 10:03-0500 Heart rate 100 /min López Pendlebury DARKROOM TECHNICIAN.FINANCIAL SALES REPRESENTATIVE Work Phone: [facility] 06-17-2022 10:03-0500 Respiratory rate 20 /min López Pendlebury DARKROOM TECHNICIAN.FINANCIAL SALES REPRESENTATIVE Work Phone: [facility] 06-17-2022 10:03-0500 SaO2% (BldA) [Mass fraction] 98 % López Pendlebury DARKROOM TECHNICIAN.FINANCIAL SALES REPRESENTATIVE Work Phone: [facility] 06-17-2022 10:03-0500 Systolic blood pressure 126 mm[Hg] López Pendlebury DARKROOM TECHNICIAN.FINANCIAL SALES REPRESENTATIVE Work Phone: [facility] 02-07-2022 15:28-0400 Body temperature 98.71 [degF] Enrike Zach DARKROOM TECHNICIAN.FINANCIAL SALES REPRESENTATIVE Work Phone: [facility] 02-07-2022 15:28-0400 Body weight 91.63 kg Enrike Zach DARKROOM TECHNICIAN.FINANCIAL SALES REPRESENTATIVE Work Phone: [facility] 02-07-2022 15:28-0400 Diastolic blood pressure 90 mm[Hg] Enrike Zach DARKROOM TECHNICIAN.FINANCIAL SALES REPRESENTATIVE Work Phone: [facility] 02-07-2022 15:28-0400 Heart rate 80 /min Enrike Zach DARKROOM TECHNICIAN.FINANCIAL SALES REPRESENTATIVE Work Phone: [facility] 02-07-2022 15:28-0400 Respiratory rate 16 /min Enrike Zach DARKROOM TECHNICIAN.FINANCIAL SALES REPRESENTATIVE Work Phone: [facility] 02-07-2022 15:28-0400 SaO2% (BldA) [Mass fraction] 98 % Enrike Zach DARKROOM TECHNICIAN.FINANCIAL SALES REPRESENTATIVE Work Phone: [facility] 02-07-2022 15:28-0400 Systolic blood pressure 140 mm[Hg] Enrike Zach DARKROOM TECHNICIAN.FINANCIAL SALES REPRESENTATIVE Work Phone: [facility] 01-03-2017 16:19-0400 BMI (Body Mass Index) 38.43 kg/m2 Marian Macedo MD [facility] 01-03-2017 16:19-0400 Body Temperature 99.7 [degF] Marian Macedo MD [facility] 01-03-2017 16:19-0400 BP Diastolic 80 mm[Hg] Marian Macedo MD [facility] 01-03-2017 16:19-0400 BP Systolic 132 mm[Hg] Marian Macedo MD [facility] 01-03-2017 16:19-0400 Height 162.56 cm Marian Macedo MD [facility] 01-03-2017 16:19-0400 Pulse (Heart Rate) 84 /min Marian Macedo MD [facility] 01-03-2017 16:19-0400 Respiratory Rate 17 /min Marian Macedo MD [facility] 01-03-2017 16:19-0400 Weight 101.56 kg Marian Macedo MD [facility] Encounters Encounter Date Encounter Type Care Provider Facility Start: 05-23-2023 End: 05-23-2023 ambulatory [facility] Facility:[facility] Start: 05-07-2023 End: 05-07-2023 ambulatory [facility] Facility:[facility] Start: 05-07-2023 End: 05-07-2023 ambulatory Karlos Vasquez PA-C Work Phone: Telemedicine Procedures Date Procedure Procedure Detail Performing Clinician Start: 12-09-2022 End: 12-09-2022 Urnls dip stick/tablet rgnt auto w/o microscopy Amor Chapa DARKROOM TECHNICIAN.FINANCIAL SALES REPRESENTATIVE Work Phone: Start: 08-18-2022 BACTERIAL VAGINOSIS AMPLIFICATION Amor Chapa DARKROOM TECHNICIAN.FINANCIAL SALES REPRESENTATIVE Work Phone: Start: 08-18-2022 Iadna javire species amplified probe tq Amor Chapa DARKROOM TECHNICIAN.FINANCIAL SALES REPRESENTATIVE Work Phone: Start: 08-18-2022 Urnls dip stick/tablet rgnt auto w/o microscopy [facility] Start: 07-26-2022 End: 07-26-2022 Urnls dip stick/tablet rgnt auto w/o microscopy Chanelle Briones DARKROOM TECHNICIAN.FINANCIAL SALES REPRESENTATIVE Work Phone: Start: 07-07-2022 Urnls dip stick/tablet rgnt auto w/o microscopy Clyde Gale DARKROOM TECHNICIAN.FINANCIAL SALES REPRESENTATIVE Work Phone: Start: 08-31-2021 Dup-scan xtr veins unilateral/limited study Shahida Castro PA-C Work Phone: Start: 01-03-2017 End: 01-03-2017 Documentation of current medications Marian Macedo MD Start: 01-03-2017 Gynecologic examination Encounter for gynecological examination (general) (routine) with abnormal findings Marian Macedo MD Start: 01-03-2017 Gynecologic examination Encounter for gynecological examination (general) (routine) with abnormal findings Marian Macedo MD Plan of Treatment Date Care Activity Detail Author Start: 07-28-2032 Urine microalbumin profile [facility] Start: 03-19-2025 HPV TESTING HPV TESTING [facility] Start: 03-19-2025 PAP TESTING PAP TESTING [facility] Start: 02-04-2023 Covid-19 Vaccine ( season) Covid-19 Vaccine ( season) [facility] Start: 02-04-2023 Influenza vaccination [facility] Start: 12-09-2022 End: 02-08-2023 Bacteria identified in Urine by Culture [facility] Work Phone: Immunizations Immunization Date Immunization Notes Care Provider Manoj mendez 07-28-2022 tetanus toxoid, redu kendra diphtheria toxoid, and acellular pertussis vaccine, adsorbed Debi Arteaga DARKROOM TECHNICIAN.FINANCIAL SALES REPRESENTATIVE Work Phone: [facility] 02-16-2021 hepatitis B vaccine, adult dosage Chanelle Briones DARKROOM TECHNICIAN.FINANCIAL SALES REPRESENTATIVE Work Phone: [facility] Work Phone: 02-16-2021 hepatitis B vaccine, unspecified formulation [facility] Work Phone: [facility] 02-16-2018 influenza virus vaccine, unspecified formulation Karlos Vasquez PA-C Work Phone: [facility] 12-23-2009 tetanus toxoid, redu kendra diphtheria toxoid, and acellular pertussis vaccine, adsorbed Chanelle Briones HARLEY Work Phone: [facility] Payers Date Payer Category Payer Medicaid [id number] 2022 Unknown [id number] 2022 Unknown [id number] 2022 Unknown [id number] 2021 Medicaid [id number] 2008 Medicaid [facility] [facility] [id number] 2008-Present [phone] [address] [place] [address] Medicaid [id number] 2008 Medicaid [id number] Social History Date Type Detail Facility Start: 11-18-2011 End: 02-07-2022 Tobacco smoking status FLIS Never smoked tobacco [facility] Work Phone: Start: 08-28-2021 End: 01-06-2023 Alcohol intake Current drinker of alcohol (finding) [facility] Start: 11-12-2019 End: 05-02-2022 History SDOH Alcohol Frequency 2 [facility] Start: 11-12-2019 End: 05-02-2022 History SDOH Alcohol Binge 1 [facility] Start: 08-28-2021 History SDOH Alcohol Comment regular [facility] Start: 11-12-2019 End: 05-02-2022 History SDOH Social Connections Get Together 5 [facility] Start: 11-12-2019 End: 05-02-2022 History SDOH Social Connections Living 7 [facility] Start: 11-12-2019 End: 05-02-2022 History SDOH Physical Activity DPW 4 [facility] Start: 11-12-2019 End: 05-02-2022 History SDOH Physical Activity MPS 3 [facility] Start: 11-11-2019 Education 17 [facility] Start: 1985 Sex Assigned At Female [facility] Start: 08-18-2021 End: 05-03-2022 Exposure to SARS-CoV-2 (event) Not sure [facility] Start: 11-18-2011 End: 02-07-2022 Tobacco use and exposure Smokeless tobacco non-user [facility] Start: 05-02-2022 End: 11-08-2022 History of Social function [facility] Start: 05-02-2022 End: 11-08-2022 Social connection and isolation panel [facility] Do you belong to any clubs or organizations such as presybeterian groups, unions, fraternal or athletic groups, or school groups? No [facility] Are you now , , , , never or living with a partner? Never [facility] How often to you hav e a drink containing alcohol? 2-3 time sa week [facility] How many standard dr inks containing alcohol do you have on a typical day? 1 or 2 [facility] How often do you hav e 6 or more drinks on 1 occasion? Never [facility] How hard is it for y ou to pay for the very basics like food, housing, medical care, and heating Not very hard [facility] Adult Depression Screening Assessment 0 [facility] Do you feel stress - tense, restless, nervous, or anxious, or unable to sleep at night because your mind is troubled all the time - these days [OSQ] Only a little [facility] (I/We) worried wheth er (my/our) food would run out before (I/we) got money to buy more. Sometimes true [facility] The food that (I/we) bought just didn't last, and (I/we) didn't have money to get more. Never true [facility] Start: 11-25-2020 Gender identity Identifies as female gender (finding) [facility] Start: 11-25-2020 Sexual orientation Heterosexual (finding) [facility] Clinical Notes 10-22-2008 to 05-23-2023 Karlos Vasquez PA-C - 05/07/2023 3:06 PM ESTTelephone Encounter - Clyde Gale APRN.CNP - 01/20/2023 3:43 PM EDTTelephone Encounter - Manjula Rodríguez RN - 01/20/2023 3:26 PM EDT Note Date & Type Note Facility 05-23-2023 Note HNO ID: [id number] Author: Amor Chapa APRN.FINANCIAL SALES REPRESENTATIVE Service: ? Author Type: Nurse Practitioner Type: Progress Notes Filed: 05/23/2023 10:45 AM Note Text: This note was created using NoteWriter. Subjective Yenny Conklin is a 38 year old female. 38 year old female with no PMH presents for illness. Acute onset 2 to 3 weeks ago + sinus pressure + sinus congestion +ear pain +ear drainage +nasal congestion +drainage from eye +post nasal drainage Denies fever or chills Denies cough Denies CP Denies dyspnea Denies abdominal pain. Has used Sudafed Denies tobacco usage. The history is provided by the patient. No event services manager was used. Sinus Problem This is a new problem. The current episode started 1 to 4 weeks ago. The problem occurs constantly. The problem has been gradually worsening. Associated symptoms include congestion and headaches. Pertinent negatives include no abdominal pain, anorexia, arthralgias, change in bowel habit, chest pain, chills, coughing, diaphoresis, fatigue, fever, joint swelling, myalgias, nausea, neck pain, numbness, rash, sore throat, swollen glands, urinary symptoms, vertigo, visual change, vomiting or weakness. Nothing aggravates the symptoms. Treatments tried: Sudafed. The treatment provided no relief. PAST MEDICAL HISTORY Diagnosis Date Dysthymic disorder Depression (non-psychotic) PAST SURGICAL HISTORY Procedure Laterality Date DELIVERY ONLY , low cervical x2 MIRENA IUD [id number] PAST SURGICAL HISTORY OF 3 years old tubes put in ears PAST SURGICAL HISTORY OF ear surgery, TM graphing PAST SURGICAL HISTORY OF wisdom teeth removed TONSILLECTOMY PRIMARY/SECONDARY Tonsillectomy ALLERGIES Bees MEDICATIONS levonorgestrel (MIRENA INTRAUTERINE) busPIRone (BUSPAR) 15 mg tablet Take 1 tablet by mouth two times a day. PARoxetine (PAXIL) 20 mg tablet Take 1 tablet by mouth once daily. atomoxetine (STRATTERA) 100 mg capsule Take 1 capsule by mouth once daily. EPINEPHrine (EPIPEN) 0.3 mg/0.3 mL auto-injector Use as directed for bee sting/allergic reaction amoxicillin-clavulanate potassium (AUGMENTIN) 875-125 mg per tablet Take 1 tablet by mouth two times a day for 7 days. Fexofenadine-Pseudoephedrine (SHY-D 24 HOUR) 180-240 mg per 24 hr tablet Take 1 tablet by mouth once daily. fluticasone (FLONASE) 50 mcg/actuation nasal spray Use 2 Sprays in each nostril once daily. Rinse mouth after use. JULEBER 0.15-0.03 mg per tablet ergocalciferol 50,000 unit capsule (VITAMIN D2, DRISDOL) Take 1 capsule by mouth one time a week. FAMILY HISTORY Problem Relation Age of Onset Psychiatry Mother Depression Psychiatry Father Alcoholism Dementia Father 67 None Paternal Grandmother other (Lougherig's disease) Paternal Grandmother other (crohns disease) Sister Psychiatry Sister Bipolar Bipolar disorder Sister Psychiatry Brother Bipolar, schizophrenia Schizophrenia Brother Social History Tobacco Use Smoking status: Never Smokeless tobacco: Never Vaping Use Vaping Use: Never used Substance Use Topics Alcohol use: Yes Comment: regular Drug use: No Review of Systems Constitutional: Negative for chills, diaphoresis, fatigue and fever. HENT: Positive for congestion, ear pain, postnasal drip, rhinorrhea, sinus pressure and sinus pain. Negative for sore throat. Eyes: Negative for pain, discharge, redness and itching. Respiratory: Negative for apnea, cough, choking and chest tightness. Cardiovascular: Negative for chest pain, palpitations and leg swelling. Gastrointestinal: Negative for abdominal pain, anorexia, change in bowel habit, nausea and vomiting. Musculoskeletal: Negative for arthralgias, joint swelling, myalgias and neck pain. Skin: Negative for color change, pallor and rash. Allergic/Immunologic: Negative for environmental allergies, food allergies and immunocompromised state. Neurological: Positive for headaches. Negative for dizziness, vertigo, facial asymmetry, weakness and numbness. Hematological: Negative for adenopathy. Does not bruise/bleed easily. Psychiatric/Behavioral: Negative for agitation and behavioral problems. Objective BP 162/100 Pulse 87 Temp 36.7 ?C (98 ?F) Resp 20 Wt 100.4 kg (221 lb 6.4 oz) LMP 11/10/2022 SpO2 97% BMI 38.00 kg/m? Physical Exam Vitals and nursing note reviewed. Constitutional: General: She is not in acute distress. Appearance: Normal appearance. She is normal weight. She is not ill-appearing, toxic-appearing or diaphoretic. HENT: Head: Normocephalic and atraumatic. Right Ear: Ear canal and external ear normal. Left Ear: Ear canal and external ear normal. Ears: Comments: Bilateral TM's erythematous Nose: Congestion present. No rhinorrhea. Mouth/Throat: Mouth: Mucous membranes are moist. Pharynx: Posterior oropharyngeal erythema present. No oropharyngeal exudate. Eyes: (more content not included)... [facility] 05-07-2023 Note HNO ID: [id number] Author: Karlos Vasquez PA-C Service: ? Author Type: Physician On Call Pharmacy Technician Type: Progress Notes Filed: 05/07/2023 3:07 PM Note Text: This is an Express [facility] eVisit note for Yenny Hawthorne/Questionnaire reviewed The chief complaint for the visit - Patient presents with: Sinus Problem Recommendations/Treatment plan - See My Chart Message to patient Karlos Vasquez PA-C [facility] 05-07-2023 History of Presen t illness Narrative This is an [facility] eVisit note for Yenny Hawthorne/Questionnaire reviewed The chief complaint for the visit - Patient presents with: Sinus Problem Recommendations/Treatment plan - See My Chart Message to patient Karlos Vasquez PA-C documented in this encounter [facility] 01-20-2023 Miscellaneous Notes Noted, thank you. Clyde Gale APRN.HAILEY Patient calls and states that she has been taking 10 mg dose. Patient just refilled medication on for a 90 day supply. Patient will increase dose to 20 mg per provider recommendations. Patient states that she thinks that she has enough for a couple of weeks. Patient will call back to let provider know when she is almost out of medication and if increased dose is helping. Patient states that she will eventually have insurance. Patient is dropping off paperwork to job and family to see if they can ask her. Otherwise it will take a month for insurance to kick in at work. Manjula Rodríguez RN Called and left a voicemail for the Patient to call back and ask for a nurse to receive the providers message. Laura Baig RN Can you please call the patient and let her know that she is taking a very low dose of Paxil. I would recommend increasing to 20 mg. The symptoms she is having is more than likely due to anxiety. I would expect the symptoms to be daily if this was an allergic reaction. If she needs me to send in a new prescription please verify pharmacy. Thank you. Clyde Gale APRN.HAILEY Patient calling for advise from Clyde Gale CNP. Reports she saw Clyde back in November and was switched from Effexor to low dose Paxil. Pt curious if Clyde thinks patient needs Paxil increased or other recommendation. States she has had two new recent jobs and during the new jobs she has had episodes where her face, neck and chest become red and her scalp feels itchy. She thinks this may be from anxiety. States she doesn't think it's a reaction to her medication because it is not happening all the time but she isn't sure. Patient states her stress level has been higher recently and having stress of caring for her bipolar daughter . Pt also states she does not have medical insurance currently and would not be able to come in for OV. Asking for any recommendations. Patient states she is at work and will call back in later today for provider's response. No need to call patient. Kathi Wurst, RN documented in this encounter [facility] 2023 Miscellaneous Notes Patient notified.Aggie Bourgeois LPN Phone call placed brief message to contact a nurse to review results. Debby Villalta LPN Please notify that testing positive for yeast, diflucan sent to pharmacy. F/u for continued s/s. documented in this encounter [facility] 01-06-2023 Note HNO ID: [id number] Author: Bernabe Stacy PA Service: ? Author Type: Physician On Call Pharmacy Technician Type: Progress Notes Filed: 01/06/2023 1:14 PM Note Text: This note was created using [email or web address]. Subjective Yenny Conklin is a 37 year old female. HPI 37-year-old female presents for vaginal discharge and itching. Patient states she has had vaginal itching and discharge for about 2 weeks. She denies any concern for STD. No urinary symptoms. She was treated for UTI about a month ago, concerned she may have a yeast infection. She denies any abdominal pain, pelvic pain, back pain. No concern for . No other complaint. PAST MEDICAL HISTORY Diagnosis Date Dysthymic disorder Depression (non-psychotic) PAST SURGICAL HISTORY Procedure Laterality Date DELIVERY ONLY , low cervical x2 MIRENA IUD [id number] PAST SURGICAL HISTORY OF 3 years old tubes put in ears PAST SURGICAL HISTORY OF ear surgery, TM graphing PAST SURGICAL HISTORY OF wisdom teeth removed TONSILLECTOMY PRIMARY/SECONDARY Tonsillectomy ALLERGIES Bees MEDICATIONS PARoxetine (PAXIL) 10 mg tablet Take 1 tablet by mouth once daily. atomoxetine (STRATTERA) 100 mg capsule Take 1 capsule by mouth once daily. busPIRone (BUSPAR) 15 mg tablet Take 1 tablet by mouth twice daily. Fexofenadine-Pseudoephedrine (SHY-D 24 HOUR) 180-240 mg per 24 hr tablet Take 1 tablet by mouth once daily. fluticasone (FLONASE) 50 mcg/actuation nasal spray Use 2 Sprays in each nostril once daily. Rinse mouth after use. JULEBER 0.15-0.03 mg per tablet ergocalciferol 50,000 unit capsule (VITAMIN D2, DRISDOL) Take 1 capsule by mouth one time a week. EPINEPHrine (EPIPEN) 0.3 mg/0.3 mL auto-injector Use as directed for bee sting/allergic reaction FAMILY HISTORY Problem Relation Age of Onset Psychiatry Mother Depression Psychiatry Father Alcoholism Dementia Father 67 None Paternal Grandmother other (Lougherig's disease) Paternal Grandmother other (crohns disease) Sister Psychiatry Sister Bipolar Bipolar disorder Sister Psychiatry Brother Bipolar, schizophrenia Schizophrenia Brother Social History Tobacco Use Smoking status: Never Smokeless tobacco: Never Vaping Use Vaping Use: Never used Substance Use Topics Alcohol use: Yes Comment: regular Drug use: No Review of Systems Constitutional: Negative for chills and fever. HENT: Negative for congestion, ear pain and sore throat. Respiratory: Negative for cough and shortness of breath. Cardiovascular: Negative for chest pain. Gastrointestinal: Negative for diarrhea and vomiting. Genitourinary: Positive for vaginal discharge. Negative for vaginal bleeding and vaginal pain. Objective BP 150/86 Pulse 79 Temp 36.8 ?C (98.3 ?F) Resp 18 Wt 95.9 kg (211 lb 6.4 oz) LMP 11/10/2022 SpO2 100% BMI 36.29 kg/m? Physical Exam Vitals and nursing note reviewed. Constitutional: General: She is not in acute distress. Appearance: Normal appearance. She is not toxic-appearing. Cardiovascular: Rate and Rhythm: Normal rate and regular rhythm. Pulmonary: Effort: Pulmonary effort is normal. Breath sounds: Normal breath sounds. Abdominal: General: Abdomen is flat. Palpations: Abdomen is soft. Genitourinary: Comments: Deferred by patient Skin: General: Skin is warm and dry. Neurological: Mental Status: She is alert. Assessment and Plan ASSESSMENT/PLAN: 1. Vaginal discharge - ICD9: 623.5, ICD10: N89.8 -Self swabs completed. Treat based on result. - JAVIER/TRICHOMONAS NAAT - BACTERIAL VAGINOSIS NAAT Diagnosis and treatment plan were discussed and questions were answered to the patient's satisfaction. Pt acknowledged understanding of concepts and follow up plan. Specific signs and symptoms that would indicate the need for higher level of care were discussed in detail warranting prompt ER evaluation. CHAYA Roy [facility] 01-06-2023 History of Presen t illness Narrative This note was created using Real Time Content. Subjective Yenny Conklin is a 37 year old female. HPI 37-year-old female presents for vaginal discharge and itching. Patient states she has had vaginal itching and discharge for about 2 weeks. She denies any concern for STD. No urinary symptoms. She was treated for UTI about a month ago, concerned she may have a yeast infection. She denies any abdominal pain, pelvic pain, back pain. No concern for . No other complaint. PAST MEDICAL HISTORY Diagnosis Date Dysthymic disorder Depression (non-psychotic) PAST SURGICAL HISTORY Procedure Laterality Date DELIVERY ONLY , low cervical x2 MIRENA IUD [id number] PAST SURGICAL HISTORY OF 3 years old tubes put in ears PAST SURGICAL HISTORY OF ear surgery, TM graphing PAST SURGICAL HISTORY OF wisdom teeth removed TONSILLECTOMY PRIMARY/SECONDARY <AGE 12 Tonsillectomy ALLERGIES Bees MEDICATIONS PARoxetine (PAXIL) 10 mg tablet Take 1 tablet by mouth once daily. atomoxetine (STRATTERA) 100 mg capsule Take 1 capsule by mouth once daily. busPIRone (BUSPAR) 15 mg tablet Take 1 tablet by mouth twice daily. Fexofenadine-Pseudoephedrine (SHY-D 24 HOUR) 180-240 mg per 24 hr tablet Take 1 tablet by mouth once daily. fluticasone (FLONASE) 50 mcg/actuation nasal spray Use 2 Sprays in each nostril once daily. Rinse mouth after use. JULEBER 0.15-0.03 mg per tablet ergocalciferol 50,000 unit capsule (VITAMIN D2, DRISDOL) Take 1 capsule by mouth one time a week. EPINEPHrine (EPIPEN) 0.3 mg/0.3 mL auto-injector Use as directed for bee sting/allergic reaction FAMILY HISTORY Problem Relation Age of Onset Psychiatry Mother Depression Psychiatry Father Alcoholism Dementia Father 67 None Paternal Grandmother other (Lougherig's disease) Paternal Grandmother other (crohns disease) Sister Psychiatry Sister Bipolar Bipolar disorder Sister Psychiatry Brother Bipolar, schizophrenia Schizophrenia Brother Social History Tobacco Use Smoking status: Never Smokeless tobacco: Never Vaping Use Vaping Use: Never used Substance Use Topics Alcohol use: Yes Comment: regular Drug use: No Review of Systems Constitutional: Negative for chills and fever. HENT: Negative for congestion, ear pain and sore throat. Respiratory: Negative for cough and shortness of breath. Cardiovascular: Negative for chest pain. Gastrointestinal: Negative for diarrhea and vomiting. Genitourinary: Positive for vaginal discharge. Negative for vaginal bleeding and vaginal pain. Objective BP 150/86 Pulse 79 Temp 36.8 C (98.3 F) Resp 18 Wt 95.9 kg (211 lb 6.4 oz) LMP 11/10/2022 SpO2 100% BMI 36.29 kg/m Physical Exam Vitals and nursing note reviewed. Constitutional: General: She is not in acute distress. Appearance: Normal appearance. She is not toxic-appearing. Cardiovascular: Rate and Rhythm: Normal rate and regular rhythm. Pulmonary: Effort: Pulmonary effort is normal. Breath sounds: Normal breath sounds. Abdominal: General: Abdomen is flat. Palpations: Abdomen is soft. Genitourinary: Comments: Deferred by patient Skin: General: Skin is warm and dry. Neurological: Mental Status: She is alert. Assessment and Plan ASSESSMENT/PLAN: 1. Vaginal discharge - ICD9: 623.5, ICD10: N89.8 -Self swabs completed. Treat based on result. - JAVIER/TRICHOMONAS NAAT - BACTERIAL VAGINOSIS NAAT Diagnosis and treatment plan were discussed and questions were answered to the patient's satisfaction. Pt acknowledged understanding of concepts and follow up plan. Specific signs and symptoms that would indicate the need for higher level of care were discussed in detail warranting prompt ER evaluation. CHAYA Roy documented in this encounter [facility] 01-05-2023 Miscellaneous Notes The following approved medication requests have been transmitted electronically. Requested Prescriptions Pending Prescriptions Disp Refills PARoxetine (PAXIL) 10 mg tablet 90 tablet 3 Sig: Take 1 tablet by mouth once daily. Catarino Wood APRN.HAILEY Patient phones requesting refills as follows: Patient comment: I have 3 pills left. Are you able to do a 3 month prescription because it s better for my insurance. Not sure why. Requested Prescriptions Pending Prescriptions Disp Refills PARoxetine (PAXIL) 10 mg tablet 30 tablet 3 Sig: Take 1 tablet by mouth once daily. RAUL-12/01/22 Labs-09/08/27 NOV-01/09/23 Please review and advise. Kirsten Dalton LPN documented in this encounter [facility] 12-10-2022 Miscellaneous Notes Patient notified.Aggie Bourgeois LPN Vaginal culture showed overgrowth of normal bacteria. Rx for BV sent to the pharmacy. documented in this encounter [facility] 12-09-2022 Note HNO ID: [id number] Author: Amor Chapa APRN.HAILEY Service: ? Author Type: Nurse Practitioner Type: Progress Notes Filed: 12/09/2022 4:58 PM Note Text: This note was created using anydooRriter. Subjective Yenny Conklin is a 37 year old female. 37 year old female with PMH depression, anxiety, and ADD presents with urinary complaints. Acute onset of symptoms yesterday +urgency +frequency Tickle Feeling of urgency and need to go, but states nothing would come. Denies vaginal bleeding. Denies vaginal discharge. Endorses recently had coitus, citing this past weekend. States she is concerned for possible , She states she recently quit control LMP -over a month ago Go ahead and test me for std too The history is provided by the patient. No event services manager was used. UTI This is a new problem. The current episode started yesterday. The problem occurs every urination. The problem has not changed since onset.The quality of the pain is described as burning. The pain is at a severity of 4/10. The pain is mild. There has been no fever. She is Sexually active. Associated symptoms include frequency, possible and urgency. Pertinent negatives include no chills, no sweats, no nausea, no vomiting, no discharge, no hematuria, no hesitancy and no flank pain. She has tried nothing for the symptoms. Her past medical history does not include kidney stones, single kidney, urological procedure, recurrent UTIs, urinary stasis or catheterization. PAST MEDICAL HISTORY Diagnosis Date Dysthymic disorder Depression (non-psychotic) PAST SURGICAL HISTORY Procedure Laterality Date DELIVERY ONLY , low cervical x2 MIRENA IUD [id number] PAST SURGICAL HISTORY OF 3 years old tubes put in ears PAST SURGICAL HISTORY OF ear surgery, TM graphing PAST SURGICAL HISTORY OF wisdom teeth removed TONSILLECTOMY PRIMARY/SECONDARY Tonsillectomy ALLERGIES Bees MEDICATIONS sulfamethoxazole-trimethoprim (BACTRIM DS) 800-160 mg per tablet Take 1 tablet by mouth twice daily for 5 days. PARoxetine (PAXIL) 10 mg tablet Take 1 tablet by mouth once daily. atomoxetine (STRATTERA) 100 mg capsule Take 1 capsule by mouth once daily. busPIRone (BUSPAR) 15 mg tablet Take 1 tablet by mouth twice daily. Fexofenadine-Pseudoephedrine (SHY-D 24 HOUR) 180-240 mg per 24 hr tablet Take 1 tablet by mouth once daily. fluticasone (FLONASE) 50 mcg/actuation nasal spray Use 2 Sprays in each nostril once daily. Rinse mouth after use. JULEBER 0.15-0.03 mg per tablet ergocalciferol 50,000 unit capsule (VITAMIN D2, DRISDOL) Take 1 capsule by mouth one time a week. EPINEPHrine (EPIPEN) 0.3 mg/0.3 mL auto-injector Use as directed for bee sting/allergic reaction FAMILY HISTORY Problem Relation Age of Onset Psychiatry Mother Depression Psychiatry Father Alcoholism Dementia Father 67 None Paternal Grandmother other (Lougherig's disease) Paternal Grandmother other (crohns disease) Sister Psychiatry Sister Bipolar Bipolar disorder Sister Psychiatry Brother Bipolar, schizophrenia Schizophrenia Brother Social History Tobacco Use Smoking status: Never Smokeless tobacco: Never Vaping Use Vaping Use: Never used Substance Use Topics Alcohol use: Yes Comment: regular Drug use: No Review of Systems Constitutional: Negative for chills. Respiratory: Negative for apnea, cough and choking. Cardiovascular: Negative for chest pain, palpitations and leg swelling. Gastrointestinal: Negative for abdominal pain, nausea and vomiting. Genitourinary: Positive for dysuria, frequency, menstrual problem and urgency. Negative for flank pain, hematuria, hesitancy, vaginal bleeding and vaginal discharge. Musculoskeletal: Negative for arthralgias, back pain and gait problem. Skin: Negative for color change, pallor, rash and wound. Allergic/Immunologic: Negative for environmental allergies, food allergies and immunocompromised state. Neurological: Negative for dizziness, facial asymmetry and headaches. Hematological: Negative for adenopathy. Does not bruise/bleed easily. Psychiatric/Behavioral: Negative for agitation and behavioral problems. Objective BP 158/94 Pulse 94 Temp 36.4 ?C (97.6 ?F) (Temporal) Resp 18 Wt 94.8 kg (209 lb) LMP 11/10/2022 SpO2 97% BMI 35.87 kg/m? Physical Exam Vitals and nursing note reviewed. Constitutional: General: She is not in acute distress. Appearance: Normal appearance. She is normal weight. She is not ill-appearing, toxic-appearing or diaphoretic. HENT: Head: Normocephalic and atraumatic. Right Ear: Ear canal and external ear normal. Left Ear: Ear canal and external ear normal. Nose: Nose normal. No congestion or rhinorrhea. Mouth/Throat: Mouth: Mucous membranes are moist. Pharynx: No oropharyngeal exudate or posterior oropharyngeal erythema. Eyes: General: Right eye: No di (more content not included)... [facility] 12-09-2022 Miscellaneous Notes Addended by: AMOR CHAPA on: 12/09/2022 05:03 PM Modules accepted: Orders documented in this encounter [facility] 12-09-2022 History of Presen t illness Narrative This note was created using anydooRriter. Subjective Yenny Conklin is a 37 year old female. 37 year old female with PMH depression, anxiety, and ADD presents with urinary complaints. Acute onset of symptoms yesterday +urgency +frequency Tickle Feeling of urgency and need to go, but states nothing would come. Denies vaginal bleeding. Denies vaginal discharge. Endorses recently had coitus, citing this past weekend. States she is concerned for possible , She states she recently quit control LMP -over a month ago Go ahead and test me for std too The history is provided by the patient. No event services manager was used. UTI This is a new problem. The current episode started yesterday. The problem occurs every urination. The problem has not changed since onset.The quality of the pain is described as burning. The pain is at a severity of 4/10. The pain is mild. There has been no fever. She is Sexually active. Associated symptoms include frequency, possible and urgency. Pertinent negatives include no chills, no sweats, no nausea, no vomiting, no discharge, no hematuria, no hesitancy and no flank pain. She has tried nothing for the symptoms. Her past medical history does not include kidney stones, single kidney, urological procedure, recurrent UTIs, urinary stasis or catheterization. PAST MEDICAL HISTORY Diagnosis Date Dysthymic disorder Depression (non-psychotic) PAST SURGICAL HISTORY Procedure Laterality Date DELIVERY ONLY , low cervical x2 MIRENA IUD [id number] PAST SURGICAL HISTORY OF 3 years old tubes put in ears PAST SURGICAL HISTORY OF ear surgery, TM graphing PAST SURGICAL HISTORY OF wisdom teeth removed TONSILLECTOMY PRIMARY/SECONDARY <AGE 12 Tonsillectomy ALLERGIES Bees MEDICATIONS sulfamethoxazole-trimethoprim (BACTRIM DS) 800-160 mg per tablet Take 1 tablet by mouth twice daily for 5 days. PARoxetine (PAXIL) 10 mg tablet Take 1 tablet by mouth once daily. atomoxetine (STRATTERA) 100 mg capsule Take 1 capsule by mouth once daily. busPIRone (BUSPAR) 15 mg tablet Take 1 tablet by mouth twice daily. Fexofenadine-Pseudoephedrine (SHY-D 24 HOUR) 180-240 mg per 24 hr tablet Take 1 tablet by mouth once daily. fluticasone (FLONASE) 50 mcg/actuation nasal spray Use 2 Sprays in each nostril once daily. Rinse mouth after use. JULEBER 0.15-0.03 mg per tablet ergocalciferol 50,000 unit capsule (VITAMIN D2, DRISDOL) Take 1 capsule by mouth one time a week. EPINEPHrine (EPIPEN) 0.3 mg/0.3 mL auto-injector Use as directed for bee sting/allergic reaction FAMILY HISTORY Problem Relation Age of Onset Psychiatry Mother Depression Psychiatry Father Alcoholism Dementia Father 67 None Paternal Grandmother other (Lougherig's disease) Paternal Grandmother other (crohns disease) Sister Psychiatry Sister Bipolar Bipolar disorder Sister Psychiatry Brother Bipolar, schizophrenia Schizophrenia Brother Social History Tobacco Use Smoking status: Never Smokeless tobacco: Never Vaping Use Vaping Use: Never used Substance Use Topics Alcohol use: Yes Comment: regular Drug use: No Review of Systems Constitutional: Negative for chills. Respiratory: Negative for apnea, cough and choking. Cardiovascular: Negative for chest pain, palpitations and leg swelling. Gastrointestinal: Negative for abdominal pain, nausea and vomiting. Genitourinary: Positive for dysuria, frequency, menstrual problem and urgency. Negative for flank pain, hematuria, hesitancy, vaginal bleeding and vaginal discharge. Musculoskeletal: Negative for arthralgias, back pain and gait problem. Skin: Negative for color change, pallor, rash and wound. Allergic/Immunologic: Negative for environmental allergies, food allergies and immunocompromised state. Neurological: Negative for dizziness, facial asymmetry and headaches. Hematological: Negative for adenopathy. Does not bruise/bleed easily. Psychiatric/Behavioral: Negative for agitation and behavioral problems. Objective BP 158/94 Pulse 94 Temp 36.4 C (97.6 F) (Temporal) Resp 18 Wt 94.8 kg (209 lb) LMP 11/10/2022 SpO2 97% BMI 35.87 kg/m Physical Exam Vitals and nursing note reviewed. Constitutional: General: She is not in acute distress. Appearance: Normal appearance. She is normal weight. She is not ill-appearing, toxic-appearing or diaphoretic. HENT: Head: Normocephalic and atraumatic. Right Ear: Ear canal and external ear normal. Left Ear: Ear canal and external ear normal. Nose: Nose normal. No congestion or rhinorrhea. Mouth/Throat: Mouth: Mucous membranes are moist. Pharynx: No oropharyngeal exudate or posterior oropharyngeal erythema. Eyes: General: Right eye: No discharge. Left eye: No discharge. Extraocular Movements: Extraocular movements intact. Conjunctiva/sclera: Conjunctivae normal. Pupils: Pupils are equal, round, and reactive to light. Cardiovascular: Rate and Rhythm: Normal rate and regular rhythm. Pulses: Normal pulses. Heart sounds: Normal heart sounds. No murmur heard. No friction rub. Pulmonary: Effort: Pulmonary effort is normal. No respiratory distress. Breath sounds: Normal breath sounds. No stridor. No wheezing, rhonchi or rales. Chest: Chest wall: No tenderness. Abdominal: General: Abdomen is flat. There is no distension. Palpations: Abdomen is soft. There is no mass. Tenderness: There is no abdominal tenderness. There is no right CVA tenderness, left CVA tenderness, guarding or rebound. Hernia: No hernia is present. Musculoskeletal: General: No swelling, tenderness, deformity or signs of injury. Normal range of motion. Cervical back: Normal range of motion and neck supple. No rigidity. Right lower leg: No edema. Left lower leg: No edema. Lymphadenopathy: Cervical: No cervical adenopathy. Skin: General: Skin is warm and dry. Capillary Refill: Capillary refill takes less than 2 seconds. Coloration: Skin is not jaundiced or pale. Findings: No bruising, erythema, lesion or rash. Neurological: General: No focal deficit present. Mental Status: She is alert and oriented to person, place, and time. Cranial Nerves: No cranial nerve deficit. Sensory: No sensory deficit. Motor: No weakness. Coordination: Coordination normal. Gait: Gait normal. Psychiatric: Mood and Affect: Mood normal. Behavior: Behavior normal. Thought Content: Thought content normal. Judgment: Judgment normal. Assessment and Plan ASSESSMENT/PLAN: 1. Urinary tract infection without hematuria, site unspecified - ICD9: 599.0, ICD10: N39.0 (primary diagnosis) acute - UA positive for barb esterase and hematuria - Send urine for culture - Begin treatment with Bactrim DS BID for 5 days - Patient education for prevention given - UA DIP, URINE (POC) - GONORRHEA/CHLAMYDIA NAAT 2. Secondary amenorrhea - ICD9: 626.0, ICD10: N91.1 States she switched controls recently No red flags - HCG QUAL UR B/O 3. Screening for STD (sexually transmitted disease) - ICD9: V74.5, ICD10: Z11.3 Denies vaginal bleeding or discharge States want to make sure Self swab Will treat as indicated when results return. - GONORRHEA/CHLAMYDIA NAAT - BACTERIAL VAGINOSIS NAAT - JAVIER/TRICHOMONAS NAAT Amor Chapa APRN.HAILEY documented in this encounter [facility] 12-01-2022 Note HNO ID: [id number] Author: Clyde Gale APRN.CNP Service: ? Author Type: Nurse Practitioner Type: Progress Notes Filed: 12/01/2022 3:23 PM Note Text: This is a 37 year old female who presents today with: Patient presents with: Follow Up: Medication follow for depression/anxiety HISTORY OF PRESENT ILLNESS: Yenny Conklin is a 37 year old female. Patient presents with: Follow Up: Medication follow for depression/anxiety In the office to discuss depression and anxiety. Currently taking Effexor 75 mg +150 mg, total 225 mg daily and BuSpar 15 mg twice daily. Currently not following with psychiatry. Use to see psychiatry at counseling center, provider left. Seeing counselor at [facility]. Feeling overwhelmed and lack of motivation. Increase in anxiety, worry and concerns for her daughter. No panic attacks. Working 3rd shift at [employer], has been on this shift for 3 months. Difficulty with sleeping. Looking for a new job with 1st shift hours. Increased stress. PAST MEDICAL HISTORY: PAST MEDICAL HISTORY Diagnosis Date Dysthymic disorder Depression (non-psychotic) PAST SURGICAL HISTORY Procedure Laterality Date DELIVERY ONLY , low cervical x2 MIRENA IUD [id number] PAST SURGICAL HISTORY OF 3 years old tubes put in ears PAST SURGICAL HISTORY OF ear surgery, TM graphing PAST SURGICAL HISTORY OF wisdom teeth removed TONSILLECTOMY PRIMARY/SECONDARY Tonsillectomy ALLERGIES Bees MEDICATIONS Current Outpatient Medications Medication Sig atomoxetine (STRATTERA) 100 mg capsule Take 1 capsule by mouth once daily. busPIRone (BUSPAR) 15 mg tablet Take 1 tablet by mouth twice daily. venlafaxine ER (EFFEXOR XR) 150 mg 24 hr capsule Take 1 capsule by mouth once daily. Fexofenadine-Pseudoephedrine (SHY-D 24 HOUR) 180-240 mg per 24 hr tablet Take 1 tablet by mouth once daily. venlafaxine ER (EFFEXOR XR) 75 mg 24 hr capsule Take 1 capsule by mouth once daily. Take along with 150 mg dose for a total of 225 mg daily. clotrimazole (LOTRIMIN, CLOTRIM) 1 % cream Apply to affected area twice daily. Multivitamin capsule Take 1 capsule by mouth once daily. fluticasone (FLONASE) 50 mcg/actuation nasal spray Use 2 Sprays in each nostril once daily. Rinse mouth after use. JULEBER 0.15-0.03 mg per tablet ergocalciferol 50,000 unit capsule (VITAMIN D2, DRISDOL) Take 1 capsule by mouth one time a week. EPINEPHrine (EPIPEN) 0.3 mg/0.3 mL auto-injector Use as directed for bee sting/allergic reaction No current facility-administered medications for this visit. FAMILY HISTORY Problem Relation Age of Onset Psychiatry Mother Depression Psychiatry Father Alcoholism Dementia Father 67 None Paternal Grandmother other (Lougherig's disease) Paternal Grandmother other (crohns disease) Sister Psychiatry Sister Bipolar Bipolar disorder Sister Psychiatry Brother Bipolar, schizophrenia Schizophrenia Brother Social History Tobacco Use Smoking status: Never Smokeless tobacco: Never Vaping Use Vaping Use: Never used Substance Use Topics Alcohol use: Yes Comment: regular Drug use: No REVIEW OF SYSTEMS GENERAL: No weight loss, malaise or fevers/chills HEENT: Negative for frequent or significant headaches, No changes in hearing or vision. NECK: Negative for lumps, goiter, pain and significant neck swelling RESPIRATORY: Negative for cough, hemoptysis, wheezing, dyspnea or shortness of breath CARDIOVASCULAR: Negative for chest pain, leg swelling, orthopnea, or palpitations GI: No nausea, vomiting, or diarrhea/constipation. No hematochezia/melena. No heartburn or reflux symptoms. : No history of dysuria, frequency or incontinence MUSCULOSKELETAL: Negative for joint pain or swelling. SKIN: Negative for lesions, rash, and itching ENDOCRINE: Negative for cold or heat intolerance, polyuria, polydipsia and goiter NEURO: No history of headaches, syncope, paralysis, seizures or tremors MOOD: + Anxiety/Lack of motivation/Stress EXAM: BP 130/90 Pulse 92 Resp 16 Wt 94.3 kg (208 lb) LMP 11/10/2022 SpO2 98% BMI 35.70 kg/m? PHYSICAL EXAM: General Appearance: Well appearing, alert, in no acute distress, well-hydrated, well nourished. Skin: Skin color, texture, turgor normal, no suspicious rashes or lesions. Head: Normocephalic, no masses, lesions, tenderness or abnormalities. Eyes: Anicteric sclera. Extraocular movements are intact. Mood: Pleasant, engaged, and good eye contact. ASSESSMENT/PLAN: 1. Anxiety with depression - ICD9: 300.4, ICD10: F41.8 - Patient would like to try different medication for her symptoms. - Wean off Effexor, instructions provided. - Start Paxil 10 mg daily. - Continue to take Buspar as prescribed. - Keep scheduled appointments with counselor. - PAROXETINE 10 MG TABLET Follow up in 1 month or sooner as needed. Discussed treatment plan and patient voices understanding. Patient's qu (more content not included)... [facility] 12-01-2022 Instructions Clyde Gale APRN.CNP - 12/01/2022 2:46 PM EDT Wean off Effexor, take 150 mg for 1 week and reduce to 75 mg for 1 week. Start Paxil 10 mg daily. Continue to take the Buspar 15 mg twice daily. Keep scheduled appointments with counselor. Follow up in 1 month. documented in this encounter [facility] 12-01-2022 History of Presen t illness Narrative This is a 37 year old female who presents today with: Patient presents with: Follow Up: Medication follow for depression/anxiety HISTORY OF PRESENT ILLNESS: Yenny Conklin is a 37 year old female. Patient presents with: Follow Up: Medication follow for depression/anxiety In the office to discuss depression and anxiety. Currently taking Effexor 75 mg +150 mg, total 225 mg daily and BuSpar 15 mg twice daily. Currently not following with psychiatry. Use to see psychiatry at [facility], provider left. Seeing counselor at [place]. Feeling overwhelmed and lack of motivation. Increase in anxiety, worry and concerns for her daughter. No panic attacks. Working 3rd shift at [employer], has been on this shift for 3 months. Difficulty with sleeping. Looking for a new job with 1st shift hours. Increased stress. PAST MEDICAL HISTORY: PAST MEDICAL HISTORY Diagnosis Date Dysthymic disorder Depression (non-psychotic) PAST SURGICAL HISTORY Procedure Laterality Date DELIVERY ONLY , low cervical x2 MIRENA IUD [id number] PAST SURGICAL HISTORY OF 3 years old tubes put in ears PAST SURGICAL HISTORY OF ear surgery, TM graphing PAST SURGICAL HISTORY OF wisdom teeth removed TONSILLECTOMY PRIMARY/SECONDARY <AGE 12 Tonsillectomy ALLERGIES Bees MEDICATIONS Current Outpatient Medications Medication Sig atomoxetine (STRATTERA) 100 mg capsule Take 1 capsule by mouth once daily. busPIRone (BUSPAR) 15 mg tablet Take 1 tablet by mouth twice daily. venlafaxine ER (EFFEXOR XR) 150 mg 24 hr capsule Take 1 capsule by mouth once daily. Fexofenadine-Pseudoephedrine (SYH-D 24 HOUR) 180-240 mg per 24 hr tablet Take 1 tablet by mouth once daily. venlafaxine ER (EFFEXOR XR) 75 mg 24 hr capsule Take 1 capsule by mouth once daily. Take along with 150 mg dose for a total of 225 mg daily. clotrimazole (LOTRIMIN, CLOTRIM) 1 % cream Apply to affected area twice daily. Multivitamin capsule Take 1 capsule by mouth once daily. fluticasone (FLONASE) 50 mcg/actuation nasal spray Use 2 Sprays in each nostril once daily. Rinse mouth after use. JULEBER 0.15-0.03 mg per tablet ergocalciferol 50,000 unit capsule (VITAMIN D2, DRISDOL) Take 1 capsule by mouth one time a week. EPINEPHrine (EPIPEN) 0.3 mg/0.3 mL auto-injector Use as directed for bee sting/allergic reaction No current facility-administered medications for this visit. FAMILY HISTORY Problem Relation Age of Onset Psychiatry Mother Depression Psychiatry Father Alcoholism Dementia Father 67 None Paternal Grandmother other (Lougherig's disease) Paternal Grandmother other (crohns disease) Sister Psychiatry Sister Bipolar Bipolar disorder Sister Psychiatry Brother Bipolar, schizophrenia Schizophrenia Brother Social History Tobacco Use Smoking status: Never Smokeless tobacco: Never Vaping Use Vaping Use: Never used Substance Use Topics Alcohol use: Yes Comment: regular Drug use: No REVIEW OF SYSTEMS GENERAL: No weight loss, malaise or fevers/chills HEENT: Negative for frequent or significant headaches, No changes in hearing or vision. NECK: Negative for lumps, goiter, pain and significant neck swelling RESPIRATORY: Negative for cough, hemoptysis, wheezing, dyspnea or shortness of breath CARDIOVASCULAR: Negative for chest pain, leg swelling, orthopnea, or palpitations GI: No nausea, vomiting, or diarrhea/constipation. No hematochezia/melena. No heartburn or reflux symptoms. : No history of dysuria, frequency or incontinence MUSCULOSKELETAL: Negative for joint pain or swelling. SKIN: Negative for lesions, rash, and itching ENDOCRINE: Negative for cold or heat intolerance, polyuria, polydipsia and goiter NEURO: No history of headaches, syncope, paralysis, seizures or tremors MOOD: + Anxiety/Lack of motivation/Stress EXAM: BP 130/90 Pulse 92 Resp 16 Wt 94.3 kg (208 lb) LMP 11/10/2022 SpO2 98% BMI 35.70 kg/m PHYSICAL EXAM: General Appearance: Well appearing, alert, in no acute distress, well-hydrated, well nourished. Skin: Skin color, texture, turgor normal, no suspicious rashes or lesions. Head: Normocephalic, no masses, lesions, tenderness or abnormalities. Eyes: Anicteric sclera. Extraocular movements are intact. Mood: Pleasant, engaged, and good eye contact. ASSESSMENT/PLAN: 1. Anxiety with depression - ICD9: 300.4, ICD10: F41.8 - Patient would like to try different medication for her symptoms. - Wean off Effexor, instructions provided. - Start Paxil 10 mg daily. - Continue to take Buspar as prescribed. - Keep scheduled appointments with counselor. - PAROXETINE 10 MG TABLET Follow up in 1 month or sooner as needed. Discussed treatment plan and patient voices understanding. Patient's questions answered appropriately. Medications and potential side effects were discussed and patient voices understanding. Clyde Gale APRN.FINANCIAL SALES REPRESENTATIVE This note was partially generated using [employer] voice recognition system. Note was reviewed for accuracy. There may be minor misspellings or grammar miscues with [employer] voice recognition. I spent a total of 40 minutes on the date of the service which included preparing to see the patient, [id number] patient care, completing clinical documentation, performing a medically appropriate examination, and ordering medications, tests, or procedures. documented in this encounter [facility] 11-02-2022 Note HNO ID: [id number] Author: Angelina Patino APRN.CNP Service: ? Author Type: Nurse Practitioner Type: Progress Notes Filed: 11/02/2022 11:03 AM Note Text: Patient came in with complaints of right eye pain and a black floater. Patient says last night she felt like she was having a lot of pressure and a headache. Went to bed. Patient says she woke up and is still having the eye pain. Patient did say her right ear hurt did examine the right ear no signs of infection. At this time patient is being referred to the eye doctor got an appointment at 140 today. Patient will follow-up there. [facility] 11-02-2022 History of Presen t illness Narrative Patient came in with complaints of right eye pain and a black floater. Patient says last night she felt like she was having a lot of pressure and a headache. Went to bed. Patient says she woke up and is still having the eye pain. Patient did say her right ear hurt did examine the right ear no signs of infection. At this time patient is being referred to the eye doctor got an appointment at 140 today. Patient will follow-up there. documented in this encounter [facility] 10-06-2022 Miscellaneous Notes Patient has been identified by name and date of : Yes, Provider Dr. Lawson Date 10/06/22 Time 4:03 pm Patient phones for refill(s): Requested Prescriptions Pending Prescriptions Disp Refills atomoxetine (STRATTERA) 100 mg capsule 30 capsule 5 Sig: Take 1 capsule by mouth once daily. busPIRone (BUSPAR) 15 mg tablet 60 tablet 5 Sig: Take 1 tablet by mouth twice daily. venlafaxine ER (EFFEXOR XR) 150 mg 24 hr capsule 30 capsule 5 Sig: Take 1 capsule by mouth once daily. Date of last office visit in primary care: 08/23/22 next apt 11/08/22 Last 2 Encounter Wt Readings: Date: Wt: 09/18/2022 95.7 kg (211 lb) 08/23/2022 90.3 kg (199 lb) Previous labs/tests for medication: Not applicable Thank you. Anabelle Villalta LPN documented in this encounter [facility] 09-18-2022 Note HNO ID: [id number] Author: López Jane APRN.FINANCIAL SALES REPRESENTATIVE Service: ? Author Type: Nurse Practitioner Type: Progress Notes Filed: 09/18/2022 8:33 AM Note Text: Subjective HPI Nontoxic female presents urgent care chief plaint left ear pain and left upper tooth pain. Duration of symptoms 3 days. Associated symptoms listed above. Does have a dentist appointment on Tuesday. Presents today for possible dental infection. Additionally has noticed some yellow drainage from left ear. History of recurrent ear infections. Has not used any OTC medications recently. Did use Motrin last night this did help with discomfort. No ear trauma difficulty opening jaw difficulty swallowing handling secretions decreased range of motion of neck or pain in floor mouth. Denies any fever body aches chills productive cough chest pain shortness of breath pleuritic pain hemoptysis nausea vomiting abdominal pain change in bowel or bladder habits. Past medical history prescription medication use and allergies reviewed. Denies chance of . .Patient presents with: Ear Pain: left ear drainage x 3 days, upper left tooth pain x 1.5 days PAST MEDICAL HISTORY Diagnosis Date Dysthymic disorder Depression (non-psychotic) PAST SURGICAL HISTORY Procedure Laterality Date DELIVERY ONLY , low cervical x2 MIRENA IUD [id number] PAST SURGICAL HISTORY OF 3 years old tubes put in ears PAST SURGICAL HISTORY OF ear surgery, TM graphing PAST SURGICAL HISTORY OF wisdom teeth removed TONSILLECTOMY PRIMARY/SECONDARY Tonsillectomy ALLERGIES Bees MEDICATIONS Fexofenadine-Pseudoephedrine (SHY-D 24 HOUR) 180-240 mg per 24 hr tabletTake 1 tablet by mouth once daily.Disp: 30 tabletRfl: 5 venlafaxine ER (EFFEXOR XR) 75 mg 24 hr capsuleTake 1 capsule by mouth once daily. Take along with 150 mg dose for a total of 225 mg daily.Disp: 30 capsuleRfl: 5 clotrimazole (LOTRIMIN, CLOTRIM) 1 % creamApply to affected area twice daily.Disp: 60 gRfl: 0 Multivitamin capsuleTake 1 capsule by mouth once daily.Disp: Rfl: atomoxetine (STRATTERA) 100 mg capsuleTake 1 capsule by mouth once daily.Disp: 30 capsuleRfl: 5 fluticasone (FLONASE) 50 mcg/actuation nasal sprayUse 2 Sprays in each nostril once daily. Rinse mouth after use.Disp: 3 EachRfl: 3 venlafaxine ER (EFFEXOR XR) 150 mg 24 hr capsuleTake 1 capsule by mouth once daily.Disp: 30 capsuleRfl: 5 JULEBER 0.15-0.03 mg per tabletDisp: Rfl: ergocalciferol 50,000 unit capsule (VITAMIN D2, DRISDOL)Take 1 capsule by mouth one time a week.Disp: 12 capsuleRfl: 3 busPIRone (BUSPAR) 15 mg tabletTake 1 tablet by mouth twice daily.Disp: 60 tabletRfl: 5 EPINEPHrine (EPIPEN) 0.3 mg/0.3 mL auto-injectorUse as directed for bee sting/allergic reactionDisp: 2 EachRfl: 1 FAMILY HISTORY Problem Relation Age of Onset Psychiatry Mother Depression Psychiatry Father Alcoholism Dementia Father 67 None Paternal Grandmother other (Lougherig's disease) Paternal Grandmother other (crohns disease) Sister Psychiatry Sister Bipolar Bipolar disorder Sister Psychiatry Brother Bipolar, schizophrenia Schizophrenia Brother Social History Tobacco Use Smoking status: Never Smokeless tobacco: Never Vaping Use Vaping Use: Never used Substance Use Topics Alcohol use: Yes Comment: regular Drug use: No BP 120/72 Pulse 86 Temp 36.6 ?C (97.8 ?F) Resp 16 Wt 95.7 kg (211 lb) LMP 06/25/2022 (Within Days) SpO2 100% BMI 36.22 kg/m? Review of Systems Constitutional: Negative for chills, fever and malaise/fatigue. HENT: Positive for ear pain. Negative for congestion, ear discharge, sinus pain and sore throat. Eyes: Negative for blurred vision, pain, discharge and redness. Respiratory: Negative for cough, hemoptysis, sputum production, shortness of breath, wheezing and stridor. Cardiovascular: Negative for chest pain. Gastrointestinal: Negative for abdominal pain, diarrhea, nausea and vomiting. Musculoskeletal: Negative for myalgias. Skin: Negative for itching and rash. Neurological: Negative for dizziness and headaches. Objective Physical Exam Constitutional: General: She is not in acute distress. Appearance: She is not diaphoretic. HENT: Head: Normocephalic. Jaw: No trismus, tenderness, swelling or pain on movement. Right Ear: Hearing, tympanic membrane, ear canal and external ear normal. Left Ear: Hearing, ear canal and external ear normal. Tympanic membrane is perforated. Ears: Comments: No external erythema edema noted. No tragal tenderness. No otorrhea. Mouth/Throat: Lips: [place]. Mouth: Mucous membranes are moist. Dentition: Abnormal dentition. Does not have dentures. Dental tenderness and dental caries present. No gingival swelling or dental abscesses. Pharynx: Oropharynx is clear. Uvula midline. No pharyngeal swelling, oropharyngeal exudate, posterior oropharyngeal erythema or uvula swelling. (more content not included)... [facility] 09-18-2022 History of Presen t illness Narrative Subjective HPI Nontoxic female presents urgent care chief plaint left ear pain and left upper tooth pain. Duration of symptoms 3 days. Associated symptoms listed above. Does have a dentist appointment on Tuesday. Presents today for possible dental infection. Additionally has noticed some yellow drainage from left ear. History of recurrent ear infections. Has not used any OTC medications recently. Did use Motrin last night this did help with discomfort. No ear trauma difficulty opening jaw difficulty swallowing handling secretions decreased range of motion of neck or pain in floor mouth. Denies any fever body aches chills productive cough chest pain shortness of breath pleuritic pain hemoptysis nausea vomiting abdominal pain change in bowel or bladder habits. Past medical history prescription medication use and allergies reviewed. Denies chance of . .Patient presents with: Ear Pain: left ear drainage x 3 days, upper left tooth pain x 1.5 days PAST MEDICAL HISTORY Diagnosis Date Dysthymic disorder Depression (non-psychotic) PAST SURGICAL HISTORY Procedure Laterality Date DELIVERY ONLY , low cervical x2 MIRENA IUD [id number] PAST SURGICAL HISTORY OF 3 years old tubes put in ears PAST SURGICAL HISTORY OF ear surgery, TM graphing PAST SURGICAL HISTORY OF wisdom teeth removed TONSILLECTOMY PRIMARY/SECONDARY <AGE 12 Tonsillectomy ALLERGIES Bees MEDICATIONS Fexofenadine-Pseudoephedrine (SHY-D 24 HOUR) 180-240 mg per 24 hr tablet^Take 1 tablet by mouth once daily.^Disp: 30 tablet^Rfl: 5 venlafaxine ER (EFFEXOR XR) 75 mg 24 hr capsule^Take 1 capsule by mouth once daily. Take along with 150 mg dose for a total of 225 mg daily.^Disp: 30 capsule^Rfl: 5 clotrimazole (LOTRIMIN, CLOTRIM) 1 % cream^Apply to affected area twice daily.^Disp: 60 g^Rfl: 0 Multivitamin capsule^Take 1 capsule by mouth once daily.^Disp: ^Rfl: atomoxetine (STRATTERA) 100 mg capsule^Take 1 capsule by mouth once daily.^Disp: 30 capsule^Rfl: 5 fluticasone (FLONASE) 50 mcg/actuation nasal spray^Use 2 Sprays in each nostril once daily. Rinse mouth after use.^Disp: 3 Each^Rfl: 3 venlafaxine ER (EFFEXOR XR) 150 mg 24 hr capsule^Take 1 capsule by mouth once daily.^Disp: 30 capsule^Rfl: 5 JULEBER 0.15-0.03 mg per tablet^^Disp: ^Rfl: ergocalciferol 50,000 unit capsule (VITAMIN D2, DRISDOL)^Take 1 capsule by mouth one time a week.^Disp: 12 capsule^Rfl: 3 busPIRone (BUSPAR) 15 mg tablet^Take 1 tablet by mouth twice daily.^Disp: 60 tablet^Rfl: 5 EPINEPHrine (EPIPEN) 0.3 mg/0.3 mL auto-injector^Use as directed for bee sting/allergic reaction^Disp: 2 Each^Rfl: 1 FAMILY HISTORY Problem Relation Age of Onset Psychiatry Mother Depression Psychiatry Father Alcoholism Dementia Father 67 None Paternal Grandmother other (Lougherig's disease) Paternal Grandmother other (crohns disease) Sister Psychiatry Sister Bipolar Bipolar disorder Sister Psychiatry Brother Bipolar, schizophrenia Schizophrenia Brother Social History Tobacco Use Smoking status: Never Smokeless tobacco: Never Vaping Use Vaping Use: Never used Substance Use Topics Alcohol use: Yes Comment: regular Drug use: No BP 120/72 Pulse 86 Temp 36.6 C (97.8 F) Resp 16 Wt 95.7 kg (211 lb) LMP 06/25/2022 (Within Days) SpO2 100% BMI 36.22 kg/m Review of Systems Constitutional: Negative for chills, fever and malaise/fatigue. HENT: Positive for ear pain. Negative for congestion, ear discharge, sinus pain and sore throat. Eyes: Negative for blurred vision, pain, discharge and redness. Respiratory: Negative for cough, hemoptysis, sputum production, shortness of breath, wheezing and stridor. Cardiovascular: Negative for chest pain. Gastrointestinal: Negative for abdominal pain, diarrhea, nausea and vomiting. Musculoskeletal: Negative for myalgias. Skin: Negative for itching and rash. Neurological: Negative for dizziness and headaches. Objective Physical Exam Constitutional: General: She is not in acute distress. Appearance: She is not diaphoretic. HENT: Head: Normocephalic. Jaw: No trismus, tenderness, swelling or pain on movement. Right Ear: Hearing, tympanic membrane, ear canal and external ear normal. Left Ear: Hearing, ear canal and external ear normal. Tympanic membrane is perforated. Ears: Comments: No external erythema edema noted. No tragal tenderness. No otorrhea. Mouth/Throat: Lips: [place]. Mouth: Mucous membranes are moist. Dentition: Abnormal dentition. Does not have dentures. Dental tenderness and dental caries present. No gingival swelling or dental abscesses. Pharynx: Oropharynx is clear. Uvula midline. No pharyngeal swelling, oropharyngeal exudate, posterior oropharyngeal erythema or uvula swelling. Eyes: Conjunctiva/sclera: Conjunctivae normal. Pupils: Pupils are equal, round, and reactive to light. Cardiovascular: Rate and Rhythm: Normal rate and regular rhythm. Heart sounds: Normal heart sounds. Pulmonary: Effort: Pulmonary effort is normal. No tachypnea, accessory muscle usage or respiratory distress. Breath sounds: Normal breath sounds. No stridor. No wheezing, rhonchi or rales. Abdominal: Palpations: Abdomen is soft. Tenderness: There is no abdominal tenderness. Musculoskeletal: Cervical back: Normal range of motion and neck supple. No rigidity or tenderness. Lymphadenopathy: Cervical: No cervical adenopathy. Skin: General: Skin is warm and dry. Neurological: Mental Status: She is alert and oriented to person, place, and time. ASSESSMENT/PLAN: 1. Dental infection - ICD9: 522.4, ICD10: K04.7 Diagnosed with dental infection. Placed on Augmentin. Follow-up with dentist as scheduled. Patient was educated on supportive therapies. Patient will follow up with primary care provider as needed. Patient was instructed to immediately proceed to emergency room for any new, worsening, or symptoms lasting longer than anticipated. The patient's clinical presentation is otherwise unremarkable at this time. Based on exam and clinical finding, the patient is stable for discharge. Plan of care was discussed with patient. Patient verbalizes understanding and agrees to plan of care. This note was generated using L4 Mobile software. It may contain errors in wording, punctuation, or spelling. López Jane [email or web address].HAILEY documented in this encounter [facility] 09-01-2022 Note HNO ID: [id number] Author: Ashley Saucedo LPN Service: ? Author Type: ? Type: Progress Notes Filed: 09/01/2022 3:35 PM Note Text: Patient presents for B-12 injection. Denies any problems at this time. Patient instructed on any SE of medication, verbalized understanding and agreed to proceed with treatment. Tolerated injection well. Ashley Saucedo LPN [facility] 09-01-2022 History of Presen t illness Narrative Patient presents for B-12 injection. Denies any problems at this time. Patient instructed on any SE of medication, verbalized understanding and agreed to proceed with treatment. Tolerated injection well. Ashley Saucedo LPN documented in this encounter [facility] 08-23-2022 Note HNO ID: [id number] Author: Erlin Lawson MD Service: ? Author Type: Physician Type: Progress Notes Filed: 08/23/2022 7:44 PM Note Text: Chief Complaint Patient presents with: Ear Pain Head Pain HPI Yenny Lizandro Conklin is a 37 year old female who presents here today for pain. Pt scheduled a same day visit for ear pain and head pain that hurt her all night. Pt tearful today, noting that her pain was really bad last night. Pt c/o bilateral ear pain and head pain that resulted in her missing work last night. Pt states that her head and ear pain were so severe that it really caused her a lot of difficulty with ambulating around. At times she would have to cup her ears and head due to the pain. have improved with use of Ibuprofen. Still has pressure in her L ear, generally R ear is the one that gets infected. Does use Flonase. Asking what she should use for pain. Has been recently treated with abx due to ear infection. Abx were given to her 08/02/22. Does get yeast infections with use of abx. Pt requesting a work note, did call off last night. Moved into a new place and wondering if the elevation change is causing her symptoms. Past medical history, appointments, medications, allergies reviewed. Previous Medical History PAST MEDICAL HISTORY Diagnosis Date Dysthymic disorder Depression (non-psychotic) Previous Surgical History PAST SURGICAL HISTORY Procedure Laterality Date DELIVERY ONLY , low cervical x2 MIRENA IUD [id number] PAST SURGICAL HISTORY OF 3 years old tubes put in ears PAST SURGICAL HISTORY OF ear surgery, TM graphing PAST SURGICAL HISTORY OF wisdom teeth removed TONSILLECTOMY PRIMARY/SECONDARY Tonsillectomy Family History FAMILY HISTORY Problem Relation Age of Onset Psychiatry Mother Depression Psychiatry Father Alcoholism Dementia Father 67 None Paternal Grandmother other (Lougherig's disease) Paternal Grandmother other (crohns disease) Sister Psychiatry Sister Bipolar Bipolar disorder Sister Psychiatry Brother Bipolar, schizophrenia Schizophrenia Brother Patient Allergies ALLERGIES Allergen Reactions Bees Current Medications Current Outpatient Medications on File Prior to Visit Medication Sig venlafaxine ER (EFFEXOR XR) 75 mg 24 hr capsule Take 1 capsule by mouth once daily. Take along with 150 mg dose for a total of 225 mg daily. clotrimazole (LOTRIMIN, CLOTRIM) 1 % cream Apply to affected area twice daily. Multivitamin capsule Take 1 capsule by mouth once daily. (Patient not taking: Reported on 08/18/2022) atomoxetine (STRATTERA) 100 mg capsule Take 1 capsule by mouth once daily. fluticasone (FLONASE) 50 mcg/actuation nasal spray Use 2 Sprays in each nostril once daily. Rinse mouth after use. venlafaxine ER (EFFEXOR XR) 150 mg 24 hr capsule Take 1 capsule by mouth once daily. JULEBER 0.15-0.03 mg per tablet ergocalciferol 50,000 unit capsule (VITAMIN D2, DRISDOL) Take 1 capsule by mouth one time a week. busPIRone (BUSPAR) 15 mg tablet Take 1 tablet by mouth twice daily. EPINEPHrine (EPIPEN) 0.3 mg/0.3 mL auto-injector Use as directed for bee sting/allergic reaction Current Facility-Administered Medications on File Prior to Visit Medication cyanocobalamin 1,000 mcg injection Social History Social History Tobacco Use Smoking status: Never Smokeless tobacco: Never Vaping Use Vaping Use: Never used Substance Use Topics Alcohol use: Yes Comment: regular Drug use: No EXAM: BP 124/80 (BP Site: Left Arm, BP Position: Sitting, BP Cuff Size: Regular Adult) Pulse 88 Resp 16 Wt 90.3 kg (199 lb) LMP 06/25/2022 (Within Days) BMI 34.16 kg/m? General Appearance: Well appearing, alert, in no acute distress, well-hydrated, well nourished. and Obese. Ears: External ears normal. Both TMs appear congested with evidence of prior infections and rupture, no drainage Neck: No swollen glands felt on exam Lungs: Lungs clear to auscultation. No wheezing, rhonchi, rales.. Heart: RRR without murmur, gallop, or rubs. No ectopy. Health Maintenance List HEPATITIS B(2 of 3 - 19+ 3-dose series) due on 03/16/2021 COVID-19 VACCINE(3 - Booster for Pfizer series) due on 05/12/2021 INFLUENZA(1) due on 02/04/2022 PAP TESTING due on 03/19/2025 HPV TESTING due on 03/19/2025 DTAP,TDAP,TD(3 - Td or Tdap) due on 07/28/2032 HEPATITIS C SCREENING Completed HIV SCREENING Completed Data reviewed None ASSESSMENT/PLAN: 1. Ear congestion, unspecified laterality - ICD9: 388.8, ICD10: H93.8X9 (primary diagnosis) - Start Shy D in addition Flonase to help with ear congestion - FEXOFENADINE-PSEUDOEPHEDRINE ER 180 MG-240 MG TABLET,EXT.RELEASE 24 HR 2. Ear pain, bilateral - ICD9: 388.70, ICD10: H92.03 - Cont use of Flonase. Add Shy D to help with congestion - FEXOFENADINE-PSEUDOEPHEDRINE ER 180 MG-240 MG TABLET,EXT.RELEASE 24 HR 3. Tension headache - ICD9: 307.8 (more content not included)... [facility] 08-21-2022 Miscellaneous Notes Patient notified of results, verbalized understanding of instructions given. Rosio Metz MA Left message for patient to return call for results.Aggie Bourgeois LPN Please call and let patient know her vaginal swabs are positive for yeast. Continue the Diflucan as prescribed. Other vaginal swabs were negative. Urine culture still pending, if positive we will call back. documented in this encounter [facility] 08-18-2022 Note HNO ID: [id number] Author: Amor Chapa APRN.FINANCIAL SALES REPRESENTATIVE Service: ? Author Type: Nurse Practitioner Type: Progress Notes Filed: 08/19/2022 11:05 AM Note Text: This note was created using [email or web address]. Subjective Yenny Conklin is a 37 year old female. 37 years old female presented with acute illness started 2 days ago +frequency and urgency with urination LMP should be starting today of tomorrow +itching starting 2 days ago +white vaginal discharges Patient reported taking two kind of ATB for right ear infection after what she started to have vaginal and urinal symptoms Patient reported having unprotected sex, taking control pills Juleber Denies chest pain, palpitations, SOB, edema of lower extremities Denies fever, chills, headache, sore throat Denies abdominal pain, nausea, vomiting Patient reported PMH of depression, anxiety with Effexor, Buspirone and Strattera daily, allergy to bees The history is provided by the patient and a relative. No event services manager was used. Vaginal Problem This is a new problem. The current episode started in the past 7 days. The problem occurs constantly. The problem has been unchanged. Pertinent negatives include no abdominal pain, anorexia, arthralgias, change in bowel habit, chest pain, chills, congestion, coughing, diaphoresis, fatigue, fever, headaches, joint swelling, myalgias, nausea, neck pain, numbness, rash, sore throat, swollen glands, urinary symptoms, vertigo, visual change, vomiting or weakness. Nothing aggravates the symptoms. She has tried nothing for the symptoms. PAST MEDICAL HISTORY Diagnosis Date Dysthymic disorder Depression (non-psychotic) PAST SURGICAL HISTORY Procedure Laterality Date DELIVERY ONLY , low cervical x2 MIRENA IUD [id number] PAST SURGICAL HISTORY OF 3 years old tubes put in ears PAST SURGICAL HISTORY OF ear surgery, TM graphing PAST SURGICAL HISTORY OF wisdom teeth removed TONSILLECTOMY PRIMARY/SECONDARY Tonsillectomy ALLERGIES Bees MEDICATIONS venlafaxine ER (EFFEXOR XR) 75 mg 24 hr capsuleTake 1 capsule by mouth once daily. Take along with 150 mg dose for a total of 225 mg daily.Disp: 30 capsuleRfl: 5 clotrimazole (LOTRIMIN, CLOTRIM) 1 % creamApply to affected area twice daily.Disp: 60 gRfl: 0 atomoxetine (STRATTERA) 100 mg capsuleTake 1 capsule by mouth once daily.Disp: 30 capsuleRfl: 5 fluticasone (FLONASE) 50 mcg/actuation nasal sprayUse 2 Sprays in each nostril once daily. Rinse mouth after use.Disp: 3 EachRfl: 3 venlafaxine ER (EFFEXOR XR) 150 mg 24 hr capsuleTake 1 capsule by mouth once daily.Disp: 30 capsuleRfl: 5 JULEBER 0.15-0.03 mg per tabletDisp: Rfl: ergocalciferol 50,000 unit capsule (VITAMIN D2, DRISDOL)Take 1 capsule by mouth one time a week.Disp: 12 capsuleRfl: 3 busPIRone (BUSPAR) 15 mg tabletTake 1 tablet by mouth twice daily.Disp: 60 tabletRfl: 5 EPINEPHrine (EPIPEN) 0.3 mg/0.3 mL auto-injectorUse as directed for bee sting/allergic reactionDisp: 2 EachRfl: 1 fluconazole (DIFLUCAN) 200 mg tabletTake 1 tablet by mouth once daily for 1 day.Disp: 1 tabletRfl: 0 Multivitamin capsuleTake 1 capsule by mouth once daily.Disp: Rfl: (Patient not taking: Reported on 08/18/2022) FAMILY HISTORY Problem Relation Age of Onset Psychiatry Mother Depression Psychiatry Father Alcoholism Dementia Father 67 None Paternal Grandmother other (Lougherig's disease) Paternal Grandmother other (crohns disease) Sister Psychiatry Sister Bipolar Bipolar disorder Sister Psychiatry Brother Bipolar, schizophrenia Schizophrenia Brother Social History Tobacco Use Smoking status: Never Smokeless tobacco: Never Vaping Use Vaping Use: Never used Substance Use Topics Alcohol use: Yes Comment: regular Drug use: No Review of Systems Constitutional: Negative for activity change, appetite change, chills, diaphoresis, fatigue, fever and unexpected weight change. HENT: Negative for congestion, dental problem, drooling, ear discharge, ear pain, facial swelling, hearing loss, mouth sores, postnasal drip, rhinorrhea, sinus pressure, sinus pain, sore throat and trouble swallowing. Eyes: Negative for pain, discharge, redness, itching and visual disturbance. Respiratory: Negative for cough, chest tightness, shortness of breath and wheezing. Cardiovascular: Negative for chest pain, palpitations and leg swelling. Gastrointestinal: Negative for abdominal distention, abdominal pain, anorexia, blood in stool, change in bowel habit, constipation, diarrhea, nausea and vomiting. Genitourinary: Positive for frequency, urgency and vaginal discharge. Negative for decreased urine volume, difficulty urinating, dyspareunia, dysuria, enuresis, flank pain, genital sores, hematuria, menstrual problem, pelvic pain, vaginal bleeding and vaginal pain. Vaginal itching Musculoskeletal: Negative for arthralgias, back pain, gait problem (more content not included)... [facility] 08-18-2022 History of Presen t illness Narrative This note was created using NoteWriter. Subjective Yenny Conklin is a 37 year old female. 37 years old female presented with acute illness started 2 days ago +frequency and urgency with urination LMP should be starting today of tomorrow +itching starting 2 days ago +white vaginal discharges Patient reported taking two kind of ATB for right ear infection after what she started to have vaginal and urinal symptoms Patient reported having unprotected sex, taking control pills Juleber Denies chest pain, palpitations, SOB, edema of lower extremities Denies fever, chills, headache, sore throat Denies abdominal pain, nausea, vomiting Patient reported PMH of depression, anxiety with Effexor, Buspirone and Strattera daily, allergy to bees The history is provided by the patient and a relative. No event services manager was used. Vaginal Problem This is a new problem. The current episode started in the past 7 days. The problem occurs constantly. The problem has been unchanged. Pertinent negatives include no abdominal pain, anorexia, arthralgias, change in bowel habit, chest pain, chills, congestion, coughing, diaphoresis, fatigue, fever, headaches, joint swelling, myalgias, nausea, neck pain, numbness, rash, sore throat, swollen glands, urinary symptoms, vertigo, visual change, vomiting or weakness. Nothing aggravates the symptoms. She has tried nothing for the symptoms. PAST MEDICAL HISTORY Diagnosis Date Dysthymic disorder Depression (non-psychotic) PAST SURGICAL HISTORY Procedure Laterality Date DELIVERY ONLY , low cervical x2 MIRENA IUD [id number] PAST SURGICAL HISTORY OF 3 years old tubes put in ears PAST SURGICAL HISTORY OF ear surgery, TM graphing PAST SURGICAL HISTORY OF wisdom teeth removed TONSILLECTOMY PRIMARY/SECONDARY <AGE 12 Tonsillectomy ALLERGIES Bees MEDICATIONS venlafaxine ER (EFFEXOR XR) 75 mg 24 hr capsule^Take 1 capsule by mouth once daily. Take along with 150 mg dose for a total of 225 mg daily.^Disp: 30 capsule^Rfl: 5 clotrimazole (LOTRIMIN, CLOTRIM) 1 % cream^Apply to affected area twice daily.^Disp: 60 g^Rfl: 0 atomoxetine (STRATTERA) 100 mg capsule^Take 1 capsule by mouth once daily.^Disp: 30 capsule^Rfl: 5 fluticasone (FLONASE) 50 mcg/actuation nasal spray^Use 2 Sprays in each nostril once daily. Rinse mouth after use.^Disp: 3 Each^Rfl: 3 venlafaxine ER (EFFEXOR XR) 150 mg 24 hr capsule^Take 1 capsule by mouth once daily.^Disp: 30 capsule^Rfl: 5 JULEBER 0.15-0.03 mg per tablet^^Disp: ^Rfl: ergocalciferol 50,000 unit capsule (VITAMIN D2, DRISDOL)^Take 1 capsule by mouth one time a week.^Disp: 12 capsule^Rfl: 3 busPIRone (BUSPAR) 15 mg tablet^Take 1 tablet by mouth twice daily.^Disp: 60 tablet^Rfl: 5 EPINEPHrine (EPIPEN) 0.3 mg/0.3 mL auto-injector^Use as directed for bee sting/allergic reaction^Disp: 2 Each^Rfl: 1 fluconazole (DIFLUCAN) 200 mg tablet^Take 1 tablet by mouth once daily for 1 day.^Disp: 1 tablet^Rfl: 0 Multivitamin capsule^Take 1 capsule by mouth once daily.^Disp: ^Rfl: (Patient not taking: Reported on 08/18/2022) FAMILY HISTORY Problem Relation Age of Onset Psychiatry Mother Depression Psychiatry Father Alcoholism Dementia Father 67 None Paternal Grandmother other (Lougherig's disease) Paternal Grandmother other (crohns disease) Sister Psychiatry Sister Bipolar Bipolar disorder Sister Psychiatry Brother Bipolar, schizophrenia Schizophrenia Brother Social History Tobacco Use Smoking status: Never Smokeless tobacco: Never Vaping Use Vaping Use: Never used Substance Use Topics Alcohol use: Yes Comment: regular Drug use: No Review of Systems Constitutional: Negative for activity change, appetite change, chills, diaphoresis, fatigue, fever and unexpected weight change. HENT: Negative for congestion, dental problem, drooling, ear discharge, ear pain, facial swelling, hearing loss, mouth sores, postnasal drip, rhinorrhea, sinus pressure, sinus pain, sore throat and trouble swallowing. Eyes: Negative for pain, discharge, redness, itching and visual disturbance. Respiratory: Negative for cough, chest tightness, shortness of breath and wheezing. Cardiovascular: Negative for chest pain, palpitations and leg swelling. Gastrointestinal: Negative for abdominal distention, abdominal pain, anorexia, blood in stool, change in bowel habit, constipation, diarrhea, nausea and vomiting. Genitourinary: Positive for frequency, urgency and vaginal discharge. Negative for decreased urine volume, difficulty urinating, dyspareunia, dysuria, enuresis, flank pain, genital sores, hematuria, menstrual problem, pelvic pain, vaginal bleeding and vaginal pain. Vaginal itching Musculoskeletal: Negative for arthralgias, back pain, gait problem, joint swelling, myalgias, neck pain and neck stiffness. Skin: Negative for color change, pallor, rash and wound. Allergic/Immunologic: Positive for environmental allergies. Negative for food allergies and immunocompromised state. Neurological: Negative for dizziness, vertigo, facial asymmetry, weakness, light-headedness, numbness and headaches. Hematological: Negative for adenopathy. Psychiatric/Behavioral: Negative for behavioral problems and sleep disturbance. The patient is not nervous/anxious. Objective BP 142/88 Pulse 90 Temp 36.7 C (98 F) Resp 22 Wt 90.7 kg (200 lb) LMP 06/25/2022 (Within Days) SpO2 98% BMI 34.33 kg/m Physical Exam Vitals and nursing note reviewed. Exam conducted with a refrigeration mechanic helper present. Constitutional: General: She is not in acute distress. Appearance: Normal appearance. She is obese. She is not ill-appearing, toxic-appearing or diaphoretic. HENT: Head: Normocephalic and atraumatic. Right Ear: Hearing and external ear normal. Left Ear: Hearing, tympanic membrane, ear canal and external ear normal. Nose: Nose normal. No congestion or rhinorrhea. Mouth/Throat: Mouth: Mucous membranes are moist. Pharynx: Oropharynx is clear. No oropharyngeal exudate or posterior oropharyngeal erythema. Eyes: General: Right eye: No discharge. Left eye: No discharge. Conjunctiva/sclera: Conjunctivae normal. Pupils: Pupils are equal, round, and reactive to light. Neck: Vascular: No carotid bruit. Cardiovascular: Rate and Rhythm: Normal rate and regular rhythm. Pulses: Normal pulses. Heart sounds: Normal heart sounds. No murmur heard. Pulmonary: Effort: Pulmonary effort is normal. No respiratory distress. Breath sounds: Normal breath sounds. No stridor. No wheezing, rhonchi or rales. Chest: Chest wall: No tenderness. Abdominal: General: Abdomen is flat. There is no distension. Palpations: Abdomen is soft. There is no mass. Tenderness: There is no abdominal tenderness. There is no right CVA tenderness, left CVA tenderness, guarding or rebound. Hernia: No hernia is present. Genitourinary: General: Normal vulva. Pubic Area: No rash or pubic lice. Labia: Right: No rash, tenderness, lesion or injury. Left: No rash, tenderness, lesion or injury. Urethra: No prolapse, urethral pain, urethral swelling or urethral lesion. Vagina: No signs of injury and foreign body. Vaginal discharge (white) present. No erythema, tenderness, bleeding, lesions or prolapsed vaginal mi. Comments: Unable to visualize cervical os related to body habitus., white discharge noted NO bleeding. No rash or lesions. Musculoskeletal: General: No swelling, tenderness, deformity or signs of injury. Normal range of motion. Cervical back: Normal range of motion and neck supple. No rigidity or tenderness. Right lower leg: No edema. Left lower leg: No edema. Lymphadenopathy: Cervical: Cervical adenopathy (tonsilar lymphadenopathy) present. Skin: General: Skin is warm and dry. Capillary Refill: Capillary refill takes less than 2 seconds. Coloration: Skin is not jaundiced or pale. Findings: No bruising, erythema, lesion or rash. Neurological: General: No focal deficit present. Mental Status: She is alert and oriented to person, place, and time. Cranial Nerves: No cranial nerve deficit. Sensory: No sensory deficit. Motor: No weakness. Coordination: Coordination normal. Gait: Gait normal. Psychiatric: Mood and Affect: Mood normal. Behavior: Behavior normal. Thought Content: Thought content normal. Assessment and Plan ASSESSMENT/PLAN: 1. Vaginal discharge - ICD9: 623.5, ICD10: N89.8 (primary diagnosis) X 2 days Denies concerns for STI, She states recent ATB usage and endorses she believes that is the cause of her symptoms. - pelvic exam performed, white vaginal discharges noted. vagina cultures obtained, provided x 1 Diflucan and will allow results to guide any need for further treatment. will follow up in 3-5 days if symptoms persists or worsens - GC/CHLAMYDIA DNA DET - JAVIER / TRICHOMONAS AMPLIFICATION - BACTERIAL VAGINOSIS AMPLIFICATION 2. UTI symptoms - ICD9: 788.99, ICD10: R39.9 - - UA DIP B/O- positive for RBC, Urine culture sent Patient amicable to awaiting results prior to treating. will follow up in 3-5 days i Yaquelin Callejas TEACHING PROVIDER (Physician/PA/DARKROOM TECHNICIAN) NOTE OF PERSONAL INVOLVEMENT IN CARE: I have personally seen and examined the patient and performed the medical decision-making components. I have reviewed the Advanced Practice Registered Nurse (DARKROOM TECHNICIAN) Student's documentation and verified the findings in the note as written. Any additions or changes are noted in bold/italics. Signature: Amor Chapa Date: 08/19/2022 Time: 11:04 AM documented in this encounter [facility] 08-06-2022 Note HNO ID: [id number] Author: Erlin Lawson MD Service: ? Author Type: Physician Type: Progress Notes Filed: 08/06/2022 4:56 PM Note Text: Chief Complaint Patient presents with: Follow Up: 1 month-weight HPI Yenny Conklin is a 37 year old female who presents here today for 1 month follow up. Weight: Here today for final weight in for Adipex 37.5 mg daily. Pt's weight was 195.8 lbs. Weight today is 197 lbs. She states she was not on Adipex for the last month due to it being denied. She is only eating when she is hungry. Injured her right foot 07/28/22, tripped and cut bottom of foot open. Went to [facility] ER and had 2 sutures, tetanus was updated. Needs sutures removed today. She is still having pain, dull ache when she is standing on her feet. Denies any pain otherwise. She is still working, found some special shoes that she thinks bother it due to the weight of the shoe. She stands on concrete all day. She is not sure if her meds need adjusted. She states she can usually talk her self out of her anxiety issues. Wants to cry all the time. She is currently taking Effexor xr 150 mg daily and Buspar 15 mg BID. Her stress level has been high, her daughter has been dx with several psychiatric issues. Has had issues with her daughter not going to school, other daughter is doing online school because she didn't want to finish school. Pt is going to be working 3rd shift now so she can make sure her daughter is going to school. Kids are 17 and 14 years old. Ears: has been taking Amoxicillin for right ear infection. That is improving, has been on the medication about a week. She still has some pain in the ear. Past medical history, appointments, medications, allergies reviewed. Previous Medical History PAST MEDICAL HISTORY Diagnosis Date Dysthymic disorder Depression (non-psychotic) Previous Surgical History PAST SURGICAL HISTORY Procedure Laterality Date DELIVERY ONLY , low cervical x2 MIRENA IUD [id number] PAST SURGICAL HISTORY OF 3 years old tubes put in ears PAST SURGICAL HISTORY OF ear surgery, TM graphing PAST SURGICAL HISTORY OF wisdom teeth removed TONSILLECTOMY PRIMARY/SECONDARY Tonsillectomy Family History FAMILY HISTORY Problem Relation Age of Onset Psychiatry Mother Depression Psychiatry Father Alcoholism Dementia Father 67 None Paternal Grandmother other (Lougherig's disease) Paternal Grandmother other (crohns disease) Sister Psychiatry Sister Bipolar Bipolar disorder Sister Psychiatry Brother Bipolar, schizophrenia Schizophrenia Brother Patient Allergies ALLERGIES Allergen Reactions Bees Current Medications Current Outpatient Medications on File Prior to Visit Medication Sig clotrimazole (LOTRIMIN, CLOTRIM) 1 % cream Apply to affected area twice daily. Phentermine HCl (ADIPEX-P) 37.5 mg capsule Take 1 capsule by mouth once daily for 30 days. Multivitamin capsule Take 1 capsule by mouth once daily. atomoxetine (STRATTERA) 100 mg capsule Take 1 capsule by mouth once daily. fluticasone (FLONASE) 50 mcg/actuation nasal spray Use 2 Sprays in each nostril once daily. Rinse mouth after use. venlafaxine ER (EFFEXOR XR) 150 mg 24 hr capsule Take 1 capsule by mouth once daily. JULEBER 0.15-0.03 mg per tablet ergocalciferol 50,000 unit capsule (VITAMIN D2, DRISDOL) Take 1 capsule by mouth one time a week. busPIRone (BUSPAR) 15 mg tablet Take 1 tablet by mouth twice daily. EPINEPHrine (EPIPEN) 0.3 mg/0.3 mL auto-injector Use as directed for bee sting/allergic reaction Current Facility-Administered Medications on File Prior to Visit Medication cyanocobalamin 1,000 mcg injection Social History Social History Tobacco Use Smoking status: Never Smokeless tobacco: Never Vaping Use Vaping Use: Never used Substance Use Topics Alcohol use: Yes Comment: regular Drug use: No EXAM: BP 140/88 Pulse 78 Resp 16 Wt 89.4 kg (197 lb 1.6 oz) LMP 06/25/2022 (Within Days) BMI 33.83 kg/m? General Appearance: Well appearing, alert, in no acute distress, well-hydrated, well nourished. and Overweight. Ears: right TM infected; purulent, dull. Lungs: Lungs clear to auscultation. No wheezing, rhonchi, rales.. Heart: RRR without murmur, gallop, or rubs. No ectopy. Foot: Right; 2 sutures removed from base 5th toe, laceration along crease of plantar 5th toe, healing well Health Maintenance List HEPATITIS B(2 of 3 - 19+ 3-dose series) due on 03/16/2021 COVID-19 VACCINE(3 - Booster for Pfizer series) due on 05/12/2021 INFLUENZA(1) due on 02/04/2022 PAP TESTING due on 03/19/2025 HPV TESTING due on 03/19/2025 DTAP,TDAP,TD(3 - Td or Tdap) due on 07/28/2032 HEPATITIS C SCREENING Completed HIV SCREENING Completed Data reviewed Weight graph ASSESSMENT/PLAN: 1. Depression, unspecified depression type - ICD9: 311, ICD10: F32.A (primary diagnosis) Add another 75 mg effexo (more content not included)... [facility] 08-04-2022 Note HNO ID: [id number] Author: Ashley Saucedo LPN Service: ? Author Type: ? Type: Progress Notes Filed: 08/04/2022 3:53 PM Note Text: Patient presents for B-12 injection. Denies any problems at this time. Patient instructed on any SE of medication, verbalized understanding and agreed to proceed with treatment. Tolerated injection well. Ashley Saucedo LPN [facility] 08-02-2022 Note HNO ID: [id number] Author: Debi Arteaga APRN.HAILEY Service: ? Author Type: Nurse Practitioner Type: Progress Notes Filed: 08/02/2022 4:20 PM Note Text: Subjective HPI Yenny Conklin is a 37 year old female who presents with lump on the right side of her neck for the past 2 days and feeling movement in her left lower abdomen. She states she usually starts her period on Tuesday of her pill pack but when she didn't on her last pack of pills she had a test and it was negative. This was done here 7 days ago. She is taking control pills and states she does not miss pills. She denies abdominal pain, cramping, nausea, vomiting, diarrhea or constipation. Lump on right neck is tender to palpation and patient states it moves and it hurts her when she moves her arms to lift things at work. She has had drainage from her right ear and states I always have ear and sinus problems . Review of Systems Constitutional: Negative for chills and fever. HENT: Positive for congestion and ear discharge. Negative for ear pain and sore throat. Respiratory: Negative for cough. Cardiovascular: Negative. Gastrointestinal: Negative for abdominal pain, blood in stool, constipation, diarrhea, nausea and vomiting. Genitourinary: Negative for dysuria, flank pain, frequency, hematuria and urgency. Skin: Negative for itching and rash. BP 132/78 Pulse 100 Temp 37.1 ?C (98.8 ?F) Resp 25 Wt 91 kg (200 lb 9.6 oz) LMP 06/25/2022 (Within Days) SpO2 99% BMI 34.43 kg/m? PAST MEDICAL HISTORY Diagnosis Date Dysthymic disorder Depression (non-psychotic) PAST SURGICAL HISTORY Procedure Laterality Date DELIVERY ONLY , low cervical x2 MIRENA IUD [id number] PAST SURGICAL HISTORY OF 3 years old tubes put in ears PAST SURGICAL HISTORY OF ear surgery, TM graphing PAST SURGICAL HISTORY OF wisdom teeth removed TONSILLECTOMY PRIMARY/SECONDARY Tonsillectomy ALLERGIES Bees MEDICATIONS clotrimazole (LOTRIMIN, CLOTRIM) 1 % creamApply to affected area twice daily.Disp: 60 gRfl: 0 Multivitamin capsuleTake 1 capsule by mouth once daily.Disp: Rfl: atomoxetine (STRATTERA) 100 mg capsuleTake 1 capsule by mouth once daily.Disp: 30 capsuleRfl: 5 fluticasone (FLONASE) 50 mcg/actuation nasal sprayUse 2 Sprays in each nostril once daily. Rinse mouth after use.Disp: 3 EachRfl: 3 venlafaxine ER (EFFEXOR XR) 150 mg 24 hr capsuleTake 1 capsule by mouth once daily.Disp: 30 capsuleRfl: 5 JULEBER 0.15-0.03 mg per tabletDisp: Rfl: ergocalciferol 50,000 unit capsule (VITAMIN D2, DRISDOL)Take 1 capsule by mouth one time a week.Disp: 12 capsuleRfl: 3 busPIRone (BUSPAR) 15 mg tabletTake 1 tablet by mouth twice daily.Disp: 60 tabletRfl: 5 EPINEPHrine (EPIPEN) 0.3 mg/0.3 mL auto-injectorUse as directed for bee sting/allergic reactionDisp: 2 EachRfl: 1 Phentermine HCl (ADIPEX-P) 37.5 mg capsuleTake 1 capsule by mouth once daily for 30 days.Disp: 30 capsuleRfl: 0 (Patient not taking: Reported on 08/02/2022) FAMILY HISTORY Problem Relation Age of Onset Psychiatry Mother Depression Psychiatry Father Alcoholism Dementia Father 67 None Paternal Grandmother other (Lougherig's disease) Paternal Grandmother other (crohns disease) Sister Psychiatry Sister Bipolar Bipolar disorder Sister Psychiatry Brother Bipolar, schizophrenia Schizophrenia Brother Social History Tobacco Use Smoking status: Never Smokeless tobacco: Never Vaping Use Vaping Use: Never used Substance Use Topics Alcohol use: Yes Comment: regular Drug use: No Objective Physical Exam Vitals and nursing note reviewed. Constitutional: General: She is not in acute distress. Appearance: Normal appearance. She is obese. She is not toxic-appearing. HENT: Right Ear: Drainage present. Tympanic membrane is injected, perforated (chronic per patient) and erythematous. Cardiovascular: Rate and Rhythm: Normal rate and regular rhythm. Heart sounds: Normal heart sounds. Pulmonary: Effort: Pulmonary effort is normal. No respiratory distress. Breath sounds: Normal breath sounds. No wheezing or rales. Abdominal: General: There is no distension. Palpations: Abdomen is soft. There is no mass. Tenderness: There is no abdominal tenderness. There is no guarding. Hernia: No hernia is present. Lymphadenopathy: Cervical: Cervical adenopathy present. Right cervical: Superficial cervical adenopathy present. Skin: General: Skin is warm and dry. Findings: No erythema or rash. Neurological: Mental Status: She is alert. ASSESSMENT/PLAN: 1. Abdominal complaints - ICD9: 789.9, ICD10: R19.8 (primary diagnosis) - abdominal exam is normal today. Unsure of cause of sensation of movement. Monitor and if symptom persists follow up with PCP. 2. Other acute nonsuppurative otitis media of right ear, recurrence not specified - ICD9: 381.00, ICD10: H65.191 - Will b (more content not included)... [facility] 08-02-2022 Instructions Debi Arteaga APRN.HAILEY - 08/02/2022 4:20 PM EST ASSESSMENT/PLAN: 1. Abdominal complaints - ICD9: 789.9, ICD10: R19.8 (primary diagnosis) - abdominal exam is normal today. Unsure of cause of sensation of movement. Monitor and if symptom persists follow up with PCP. 2. Other acute nonsuppurative otitis media of right ear, recurrence not specified - ICD9: 381.00, ICD10: H65.191 - Will begin treatment with Amoxicillin - Supportive care with plenty of fluids, rest, and analgesia prn. - AMOXICILLIN 875 MG TABLET - Follow-up with your PCP in 3-5 days if symptoms have not improved or sooner if symptoms worsen - Discussed red flags and need for immediate medical evaluation if any occur. - Discussed supportive care treatment with fluids, rest and analgesia. - Discussed expected course of illness Debi Arteaga APRN.FINANCIAL SALES REPRESENTATIVE OTITIS MEDIA GENERAL INFORMATION: Otitis media is an infection of the middle ear. The middle ear sits behind the eardrum. This infection may be caused by a virus or bacteria and often follows a cold. Children often have repeat ear infections. Otitis media is not contagious. INSTRUCTIONS: 1. An antibiotic has been prescribed. It should be taken exactly as prescribed. Do not stop the medicine even if the symptoms go away. 2. [id number] pain medication may be taken or other pain medication as prescribed by the doctor. 3. Nothing should be placed in the ear unless instructed by your doctor. 4. The patient may return to school/daycare or work when the temperature is normal (98.6 F or 37 C). 5. The patient should not swim while the ear is infected. CONTACT YOUR DOCTOR IF YOU OR YOUR CHILD: 1. Does not feel better within 36 hours. 2. Develops a temperature over 102E F (39E C). 3. Starts vomiting or has diarrhea. 4. Develops drainage from the affected ear. 5. Has any new problem that may be related to the medicine prescribed. RETURN TO THE ED IF: 1. You or your child has a severe headache or pain around the ear. 2. You or your child notice swelling around the ear. 3. You or your child has a seizure (convulsion), twitching of the facial muscles, or passes out. 4. You or your child is dizzy, has a stiff neck, or cannot walk or talk normally. 5. Your child becomes more irritable or listless (not interested in his or her surroundings, does not get soothed by you holding him or her). documented in this encounter [facility] 08-02-2022 History of Presen t illness Narrative Subjective HPI Yenny Conklin is a 37 year old female who presents with lump on the right side of her neck for the past 2 days and feeling movement in her left lower abdomen. She states she usually starts her period on Tuesday of her pill pack but when she didn't on her last pack of pills she had a test and it was negative. This was done here 7 days ago. She is taking control pills and states she does not miss pills. She denies abdominal pain, cramping, nausea, vomiting, diarrhea or constipation. Lump on right neck is tender to palpation and patient states it moves and it hurts her when she moves her arms to lift things at work. She has had drainage from her right ear and states I always have ear and sinus problems . Review of Systems Constitutional: Negative for chills and fever. HENT: Positive for congestion and ear discharge. Negative for ear pain and sore throat. Respiratory: Negative for cough. Cardiovascular: Negative. Gastrointestinal: Negative for abdominal pain, blood in stool, constipation, diarrhea, nausea and vomiting. Genitourinary: Negative for dysuria, flank pain, frequency, hematuria and urgency. Skin: Negative for itching and rash. BP 132/78 Pulse 100 Temp 37.1 C (98.8 F) Resp 25 Wt 91 kg (200 lb 9.6 oz) LMP 06/25/2022 (Within Days) SpO2 99% BMI 34.43 kg/m PAST MEDICAL HISTORY Diagnosis Date Dysthymic disorder Depression (non-psychotic) PAST SURGICAL HISTORY Procedure Laterality Date DELIVERY ONLY , low cervical x2 MIRENA IUD [id number] PAST SURGICAL HISTORY OF 3 years old tubes put in ears PAST SURGICAL HISTORY OF ear surgery, TM graphing PAST SURGICAL HISTORY OF wisdom teeth removed TONSILLECTOMY PRIMARY/SECONDARY <AGE 12 Tonsillectomy ALLERGIES Bees MEDICATIONS clotrimazole (LOTRIMIN, CLOTRIM) 1 % cream^Apply to affected area twice daily.^Disp: 60 g^Rfl: 0 Multivitamin capsule^Take 1 capsule by mouth once daily.^Disp: ^Rfl: atomoxetine (STRATTERA) 100 mg capsule^Take 1 capsule by mouth once daily.^Disp: 30 capsule^Rfl: 5 fluticasone (FLONASE) 50 mcg/actuation nasal spray^Use 2 Sprays in each nostril once daily. Rinse mouth after use.^Disp: 3 Each^Rfl: 3 venlafaxine ER (EFFEXOR XR) 150 mg 24 hr capsule^Take 1 capsule by mouth once daily.^Disp: 30 capsule^Rfl: 5 JULEBER 0.15-0.03 mg per tablet^^Disp: ^Rfl: ergocalciferol 50,000 unit capsule (VITAMIN D2, DRISDOL)^Take 1 capsule by mouth one time a week.^Disp: 12 capsule^Rfl: 3 busPIRone (BUSPAR) 15 mg tablet^Take 1 tablet by mouth twice daily.^Disp: 60 tablet^Rfl: 5 EPINEPHrine (EPIPEN) 0.3 mg/0.3 mL auto-injector^Use as directed for bee sting/allergic reaction^Disp: 2 Each^Rfl: 1 Phentermine HCl (ADIPEX-P) 37.5 mg capsule^Take 1 capsule by mouth once daily for 30 days.^Disp: 30 capsule^Rfl: 0 (Patient not taking: Reported on 08/02/2022) FAMILY HISTORY Problem Relation Age of Onset Psychiatry Mother Depression Psychiatry Father Alcoholism Dementia Father 67 None Paternal Grandmother other (Lougherig's disease) Paternal Grandmother other (crohns disease) Sister Psychiatry Sister Bipolar Bipolar disorder Sister Psychiatry Brother Bipolar, schizophrenia Schizophrenia Brother Social History Tobacco Use Smoking status: Never Smokeless tobacco: Never Vaping Use Vaping Use: Never used Substance Use Topics Alcohol use: Yes Comment: regular Drug use: No Objective Physical Exam Vitals and nursing note reviewed. Constitutional: General: She is not in acute distress. Appearance: Normal appearance. She is obese. She is not toxic-appearing. HENT: Right Ear: Drainage present. Tympanic membrane is injected, perforated (chronic per patient) and erythematous. Cardiovascular: Rate and Rhythm: Normal rate and regular rhythm. Heart sounds: Normal heart sounds. Pulmonary: Effort: Pulmonary effort is normal. No respiratory distress. Breath sounds: Normal breath sounds. No wheezing or rales. Abdominal: General: There is no distension. Palpations: Abdomen is soft. There is no mass. Tenderness: There is no abdominal tenderness. There is no guarding. Hernia: No hernia is present. Lymphadenopathy: Cervical: Cervical adenopathy present. Right cervical: Superficial cervical adenopathy present. Skin: General: Skin is warm and dry. Findings: No erythema or rash. Neurological: Mental Status: She is alert. ASSESSMENT/PLAN: 1. Abdominal complaints - ICD9: 789.9, ICD10: R19.8 (primary diagnosis) - abdominal exam is normal today. Unsure of cause of sensation of movement. Monitor and if symptom persists follow up with PCP. 2. Other acute nonsuppurative otitis media of right ear, recurrence not specified - ICD9: 381.00, ICD10: H65.191 - Will begin treatment with Amoxicillin - Supportive care with plenty of fluids, rest, and analgesia prn. - AMOXICILLIN 875 MG TABLET - Follow-up with your PCP in 3-5 days if symptoms have not improved or sooner if symptoms worsen - Discussed red flags and need for immediate medical evaluation if any occur. - Discussed supportive care treatment with fluids, rest and analgesia. - Discussed expected course of illness Debi Arteaga APRN.CNP documented in this encounter [facility] 07-27-2022 Miscellaneous Notes Patient given results and verbalized understanding of instructions given. Inga Martin Please let patient know she was negative for yeast, trichomonas and bacterial vaginosis. Thank you documented in this encounter [facility] 07-26-2022 Note HNO ID: [id number] Author: Chanelle Briones APRN.HAILEY Service: ? Author Type: Nurse Practitioner Type: Progress Notes Filed: 07/26/2022 3:59 PM Note Text: Subjective The history is provided by the patient. No event services manager was used. HPI Yenny Conklin is a 37 year old female who presents today for CC of missed period, on control but would like test. She is also concerned about leaking of urine. She denies any fever, painful urination, blood in urine, burning or frequency, concerned she may have a prolapse. She also recently treated for BV - recently having clear drainage, desires testing, declines std testing. BP 142/94 Pulse 97 Temp 37 ?C (98.6 ?F) Resp 18 Wt 90.7 kg (200 lb) LMP 06/25/2022 (Within Days) SpO2 98% BMI 34.33 kg/m? Social History Tobacco Use Smoking status: Never Smokeless tobacco: Never Vaping Use Vaping Use: Never used Substance Use Topics Alcohol use: Yes Comment: regular Drug use: No PAST MEDICAL HISTORY Diagnosis Date Dysthymic disorder Depression (non-psychotic) I have confirmed and edited as necessary, the [facility] Review of Systems Constitutional: Negative for chills and fever. Gastrointestinal: Negative for abdominal pain. Genitourinary: Negative for dysuria, flank pain, frequency, hematuria and urgency. Objective Physical Exam Vitals and nursing note reviewed. Exam conducted with a refrigeration mechanic helper present. Constitutional: Appearance: Normal appearance. Abdominal: General: Bowel sounds are normal. There is no abdominal bruit. Palpations: Abdomen is not rigid. There is no mass or pulsatile mass. Tenderness: There is no abdominal tenderness. There is no guarding or rebound. Negative signs include Kingsley's sign and McBurney's sign. Genitourinary: Labia: Right: No tenderness or lesion. Left: No lesion. Vagina: No vaginal discharge or tenderness. Cervix: No discharge (clear), friability or erythema. Neurological: Mental Status: She is alert and oriented to person, place, and time. Psychiatric: Mood and Affect: Affect normal. ASSESSMENT/PLAN: 1. Acute vaginitis - ICD9: 616.10, ICD10: N76.0 (primary diagnosis) Will send cultures and treat based on results - BACTERIAL VAGINOSIS AMPLIFICATION - JAVIER / TRICHOMONAS AMPLIFICATION 2. Secondary amenorrhea - ICD9: 626.0, ICD10: N91.1 test is negative, on OCP's no missed continue and follow up with [facility] - HCG QUAL UR B/O 3. Urinary incontinence, unspecified type - ICD9: 788.30, ICD10: R32 Urine dip negative, no culture sent Recommend further evaluation to discussed prolapse or SONIYA with [facility] - UA DIP, URINE (POC) Diagnosis and treatment plan were discussed and questions were answered to the patient's satisfaction. Pt acknowledged understanding of concepts and follow up plan. Specific signs and symptoms that would indicate the need for higher level of care were discussed in detail warranting prompt ER evaluation. Chanelle Briones APRN.CNP [facility] 07-26-2022 Instructions Chanelle Briones APRN.CNP - 07/26/2022 3:48 PM EST test is negative Urine dip negative Will send vaginal cultures and treat based on results. Follow up with [facility] for further evaluation and treatment. documented in this encounter [facility] 07-26-2022 History of Presen t illness Narrative Subjective The history is provided by the patient. No event services manager was used. HPI Yennyjuanjo Conklin is a 37 year old female who presents today for CC of missed period, on control but would like test. She is also concerned about leaking of urine. She denies any fever, painful urination, blood in urine, burning or frequency, concerned she may have a prolapse. She also recently treated for BV - recently having clear drainage, desires testing, declines std testing. BP 142/94 Pulse 97 Temp 37 C (98.6 F) Resp 18 Wt 90.7 kg (200 lb) LMP 06/25/2022 (Within Days) SpO2 98% BMI 34.33 kg/m Social History Tobacco Use Smoking status: Never Smokeless tobacco: Never Vaping Use Vaping Use: Never used Substance Use Topics Alcohol use: Yes Comment: regular Drug use: No PAST MEDICAL HISTORY Diagnosis Date Dysthymic disorder Depression (non-psychotic) I have confirmed and edited as necessary, the [facility] Review of Systems Constitutional: Negative for chills and fever. Gastrointestinal: Negative for abdominal pain. Genitourinary: Negative for dysuria, flank pain, frequency, hematuria and urgency. Objective Physical Exam Vitals and nursing note reviewed. Exam conducted with a refrigeration mechanic helper present. Constitutional: Appearance: Normal appearance. Abdominal: General: Bowel sounds are normal. There is no abdominal bruit. Palpations: Abdomen is not rigid. There is no mass or pulsatile mass. Tenderness: There is no abdominal tenderness. There is no guarding or rebound. Negative signs include Kingsley's sign and McBurney's sign. Genitourinary: Labia: Right: No tenderness or lesion. Left: No lesion. Vagina: No vaginal discharge or tenderness. Cervix: No discharge (clear), friability or erythema. Neurological: Mental Status: She is alert and oriented to person, place, and time. Psychiatric: Mood and Affect: Affect normal. ASSESSMENT/PLAN: 1. Acute vaginitis - ICD9: 616.10, ICD10: N76.0 (primary diagnosis) Will send cultures and treat based on results - BACTERIAL VAGINOSIS AMPLIFICATION - JAVIER / TRICHOMONAS AMPLIFICATION 2. Secondary amenorrhea - ICD9: 626.0, ICD10: N91.1 test is negative, on OCP's no missed continue and follow up with [facility] - HCG QUAL UR B/O 3. Urinary incontinence, unspecified type - ICD9: 788.30, ICD10: R32 Urine dip negative, no culture sent Recommend further evaluation to discussed prolapse or SONIYA with [facility] - UA DIP, URINE (POC) Diagnosis and treatment plan were discussed and questions were answered to the patient's satisfaction. Pt acknowledged understanding of concepts and follow up plan. Specific signs and symptoms that would indicate the need for higher level of care were discussed in detail warranting prompt ER evaluation. Chanelle Briones APRN.HAILEY documented in this encounter [facility] 07-16-2022 Note HNO ID: [id number] Author: Chanelle Anselmo, DARKROOM TECHNICIAN.FINANCIAL SALES REPRESENTATIVE Service: ? Author Type: Nurse Practitioner Type: Progress Notes Filed: 07/16/2022 4:49 PM Note Text: Subjective The history is provided by the patient and a relative. No event services manager was used. HPI Yenny Conklin is a 37 year old female who presents today for CC of rash/itching on c section scar. There is no opening or drainage of scar. She used one fluconazole without relief. Social History Tobacco Use Smoking status: Never Smokeless tobacco: Never Vaping Use Vaping Use: Never used Substance Use Topics Alcohol use: Yes Comment: regular Drug use: No PAST MEDICAL HISTORY Diagnosis Date Dysthymic disorder Depression (non-psychotic) I have confirmed and edited as necessary, the [facility] Review of Systems Constitutional: Negative for chills and fever. Musculoskeletal: Negative for joint pain and myalgias. Skin: Positive for itching and rash. All other systems reviewed and are negative. Objective BP 142/84 Pulse 78 Temp 37 ?C (98.6 ?F) (Tympanic) Resp 18 Wt 89.8 kg (198 lb) LMP 07/02/2022 (Exact Date) SpO2 99% BMI 33.99 kg/m? Physical Exam Vitals and nursing note reviewed. Pulmonary: Effort: Pulmonary effort is normal. Skin: General: Skin is warm and dry. Findings: Erythema and rash present. Rash is macular. Comments: Erythematous pruritc well demarcated plaques, with raised scaly border on marked area. Neurological: Mental Status: She is alert and oriented to person, place, and time. Psychiatric: Mood and Affect: Affect normal. ASSESSMENT/PLAN: 1. Rash - ICD9: 782.1, ICD10: R21 Appears to be tinea cruris Cream on rash twice a day until rash is gone and then continue for one week Keep area clean and dry Follow up with PCP as needed. Diagnosis and treatment plan were discussed and questions were answered to the patient's satisfaction. Pt acknowledged understanding of concepts and follow up plan. Specific signs and symptoms that would indicate the need for higher level of care were discussed in detail warranting prompt ER evaluation. Chanelle Briones APRN.FINANCIAL SALES REPRESENTATIVE [facility] 07-14-2022 Miscellaneous Notes TC to Pt. Unable to LM due to the mailbox is full. Will try again later. Kirsten Dalton LPN Can you please call the patient and let her know that we received her last vaginal swab results late. It did come back positive for yeast infection. I have sent in a prescription for Diflucan, she can take 1 tablet now and may repeat dose in 3 days if symptoms have not improved. Please let me know if she has any questions. Thank you. The following approved medication requests have been transmitted electronically. Requested Prescriptions Signed Prescriptions Disp Refills fluconazole (DIFLUCAN) 150 mg tablet 2 tablet 0 Sig: Take 1 tablet by mouth one time only for 1 dose. Repeat in 3 days as needed. Authorizing Provider: CLYDE GALE APRN.FINANCIAL SALES REPRESENTATIVE documented in this encounter [facility] 07-12-2022 Miscellaneous Notes [address] [place] [address] RE: Denial of request for coverage of Phentermine HCl (ADIPEX-P) 37.5 mg capsule Dear YENNY CONKLIN: You or your doctor recently requested prescription coverage for Phentermine HCl (ADIPEX-P) 37.5 mg capsule. After careful consideration and review of your prescription plan's drug list and the information sent to us, this request was not approved. This is the initial adverse coverage determination for this request. We understand that this decision may not be what you and your doctor expected. This letter and the enclosed information will explain your options and help you decide what to do next. Why your request was denied: Plan Exclusion Plan Exclusion This decision relates specifically to coverage provided under your prescription benefit plan and does not involve any determination of medical judgment. We reviewed all the supporting information sent to us and used your plan s guidelines to make our decision. If you d like us to send you a free copy of the guidelines (requirements, criteria, or protocols) we used, call the number on your prescription ID card. For more information about your prescription benefit, please refer to the prescription benefit section in your benefit plan materials. We ve let your doctor know about this denial, so they will be ready to work with you on your next steps or an alternative treatment plan. [facility] Enclosures cc: Dr. Erlin Lawson MY CHART MESSAGE TO PT WITH THIS INFO Patient sent mychart stating Adipex needs PA Electronic PA submitted Ashley Stephens Ma documented in this encounter [facility] 07-12-2022 Miscellaneous Notes Called and spoke to Neelam with Client Services. She stated that the swab does not appear to have been sent to the lab, no collection date or time was documented for swab. Neelam states she can add it on to the GC/Chlamydia order. Results will take up to 2-3 days to report. Celi Wong Ma Can you please call the patient and let her know that I reviewed her lab results. Labs were all normal. Negative Hepatitis and HIV. Urine culture was negative for any bacterial growth. The Yeast and trichomonas swab was not ran. We will call the lab to further investigate this. However she is on the proper antibiotic to treat the BV. Please let me know if she has any questions. Thank you.. Clyde Gale APRN.CNP documented in this encounter [facility] 07-07-2022 Note HNO ID: [id number] Author: Clyde Gale APRN.CNP Service: ? Author Type: Nurse Practitioner Type: Progress Notes Filed: 07/07/2022 6:36 PM Note Text: This is a 37 year old female who presents today with: Patient presents with: Acute Visit: Possible STD,yeast, UTI, BV HISTORY OF PRESENT ILLNESS: Yenny Conklin is a 37 year old female. Patient presents with: Acute Visit: Possible STD,yeast, UTI, BV Here in the office for concerns for possible STI or BV/Yeast. Mild vaginal pain that started 2 days ago. Broke up temporaily with significant other, he had sexually intercourse with another. Would like STD check. Increase in vaginal discharge, white. No abnormal smell. Low abdominal pain. Itchiness noted around urethra. No dysuria or hematuria or flank pain. No fever or chills. Last pap 2014, history of abnormal in the past, + HPV. Menses regular, lasting 2 days. Last menses about 2 weeks ago. Taking OCP's. PAST MEDICAL HISTORY: PAST MEDICAL HISTORY Diagnosis Date Dysthymic disorder Depression (non-psychotic) PAST SURGICAL HISTORY Procedure Laterality Date DELIVERY ONLY , low cervical x2 MIRENA IUD [id number] PAST SURGICAL HISTORY OF 3 years old tubes put in ears PAST SURGICAL HISTORY OF ear surgery, TM graphing PAST SURGICAL HISTORY OF wisdom teeth removed TONSILLECTOMY PRIMARY/SECONDARY Tonsillectomy ALLERGIES Bees MEDICATIONS Current Outpatient Medications Medication Sig Phentermine HCl (ADIPEX-P) 37.5 mg capsule Take 1 capsule by mouth once daily for 30 days. Multivitamin capsule Take 1 capsule by mouth once daily. atomoxetine (STRATTERA) 100 mg capsule Take 1 capsule by mouth once daily. fluticasone (FLONASE) 50 mcg/actuation nasal spray Use 2 Sprays in each nostril once daily. Rinse mouth after use. venlafaxine ER (EFFEXOR XR) 150 mg 24 hr capsule Take 1 capsule by mouth once daily. JULEBER 0.15-0.03 mg per tablet ergocalciferol 50,000 unit capsule (VITAMIN D2, DRISDOL) Take 1 capsule by mouth one time a week. busPIRone (BUSPAR) 15 mg tablet Take 1 tablet by mouth twice daily. EPINEPHrine (EPIPEN) 0.3 mg/0.3 mL auto-injector Use as directed for bee sting/allergic reaction Current Facility-Administered Medications Medication Dose Route Frequency cyanocobalamin 1,000 mcg injection 1,000 mcg INTRAMUSCULAR q 4 WEEKS FAMILY HISTORY Problem Relation Age of Onset Psychiatry Mother Depression Psychiatry Father Alcoholism Dementia Father 67 None Paternal Grandmother other (Lougherig's disease) Paternal Grandmother other (crohns disease) Sister Psychiatry Sister Bipolar Bipolar disorder Sister Psychiatry Brother Bipolar, schizophrenia Schizophrenia Brother Social History Tobacco Use Smoking status: Never Smokeless tobacco: Never Vaping Use Vaping Use: Never used Substance Use Topics Alcohol use: Yes Comment: regular Drug use: No REVIEW OF SYSTEMS GENERAL: No weight loss, malaise or fevers/chills HEENT: Negative for frequent or significant headaches, No changes in hearing or vision. NECK: Negative for lumps, goiter, pain and significant neck swelling RESPIRATORY: Negative for cough, hemoptysis, wheezing, dyspnea or shortness of breath CARDIOVASCULAR: Negative for chest pain, leg swelling, orthopnea, or palpitations GI: + Abdominal pain : + Itching around urethra/vaginal pain MUSCULOSKELETAL: Negative for joint pain or swelling. SKIN: Negative for lesions, rash, and itching ENDOCRINE: Negative for cold or heat intolerance, polyuria, polydipsia and goiter NEURO: No history of headaches, syncope, paralysis, seizures or tremors MOOD: Negative for depression, anxiety, or suicidal ideation. EXAM: BP 130/90 Pulse 82 Resp 16 Wt 88.9 kg (196 lb) LMP 07/02/2022 (Exact Date) SpO2 99% BMI 33.64 kg/m? PHYSICAL EXAM: General Appearance: Well appearing, alert, in no acute distress, well-hydrated, well nourished. Skin: Skin color, texture, turgor normal, no suspicious rashes or lesions. Head: Normocephalic, no masses, lesions, tenderness or abnormalities. Eyes: Anicteric sclera. Extraocular movements are intact. Lungs: Lungs clear to auscultation. No wheezing, rhonchi, rales. Heart: RRR without murmur, gallop, or rubs. No ectopy. Abdomen: Normal abdominal exam, Abdomen soft, non-tender. Bowel sounds normal. No masses, organomegaly, Negative CVA tenderness. Extremities: No deformities, edema, skin discoloration, clubbing or cyanosis. Good capillary refill. Peripheral Pulses: Normal, Capillary refill <2secs, strong peripheral pulses, Pulses palpable. Pelvic: External genitalia Normal, and vagina normal., Bimanual exam normal., Negative findings: external genitalia normal, no vulvar lesions, no cervical lesions, normal discharge, well estrogenized, vault clean with normal discharge, normal appearing perineal body and perianal region. UA: Normal ASSESSMENT/PL (more content not included)... [facility] 07-07-2022 Instructions Clyde Gale APRN.FINANCIAL SALES REPRESENTATIVE - 07/07/2022 6:15 PM EST Urine and swabs will be sent off for further testing. Get labs completed Continue to stay well hydrated Use condoms for sexual intercourse. Follow up pending test results or sooner as needed. documented in this encounter [facility] 07-07-2022 History of Presen t illness Narrative This is a 37 year old female who presents today with: Patient presents with: Acute Visit: Possible STD,yeast, UTI, BV HISTORY OF PRESENT ILLNESS: Yenny Conklin is a 37 year old female. Patient presents with: Acute Visit: Possible STD,yeast, UTI, BV Here in the office for concerns for possible STI or BV/Yeast. Mild vaginal pain that started 2 days ago. Broke up temporaily with significant other, he had sexually intercourse with another. Would like STD check. Increase in vaginal discharge, white. No abnormal smell. Low abdominal pain. Itchiness noted around urethra. No dysuria or hematuria or flank pain. No fever or chills. Last pap 2014, history of abnormal in the past, + HPV. Menses regular, lasting 2 days. Last menses about 2 weeks ago. Taking OCP's. PAST MEDICAL HISTORY: PAST MEDICAL HISTORY Diagnosis Date Dysthymic disorder Depression (non-psychotic) PAST SURGICAL HISTORY Procedure Laterality Date DELIVERY ONLY , low cervical x2 MIRENA IUD [id number] PAST SURGICAL HISTORY OF 3 years old tubes put in ears PAST SURGICAL HISTORY OF ear surgery, TM graphing PAST SURGICAL HISTORY OF wisdom teeth removed TONSILLECTOMY PRIMARY/SECONDARY <AGE 12 Tonsillectomy ALLERGIES Bees MEDICATIONS Current Outpatient Medications Medication Sig Phentermine HCl (ADIPEX-P) 37.5 mg capsule Take 1 capsule by mouth once daily for 30 days. Multivitamin capsule Take 1 capsule by mouth once daily. atomoxetine (STRATTERA) 100 mg capsule Take 1 capsule by mouth once daily. fluticasone (FLONASE) 50 mcg/actuation nasal spray Use 2 Sprays in each nostril once daily. Rinse mouth after use. venlafaxine ER (EFFEXOR XR) 150 mg 24 hr capsule Take 1 capsule by mouth once daily. JULEBER 0.15-0.03 mg per tablet ergocalciferol 50,000 unit capsule (VITAMIN D2, DRISDOL) Take 1 capsule by mouth one time a week. busPIRone (BUSPAR) 15 mg tablet Take 1 tablet by mouth twice daily. EPINEPHrine (EPIPEN) 0.3 mg/0.3 mL auto-injector Use as directed for bee sting/allergic reaction Current Facility-Administered Medications Medication Dose Route Frequency cyanocobalamin 1,000 mcg injection 1,000 mcg INTRAMUSCULAR q 4 WEEKS FAMILY HISTORY Problem Relation Age of Onset Psychiatry Mother Depression Psychiatry Father Alcoholism Dementia Father 67 None Paternal Grandmother other (Lougherig's disease) Paternal Grandmother other (crohns disease) Sister Psychiatry Sister Bipolar Bipolar disorder Sister Psychiatry Brother Bipolar, schizophrenia Schizophrenia Brother Social History Tobacco Use Smoking status: Never Smokeless tobacco: Never Vaping Use Vaping Use: Never used Substance Use Topics Alcohol use: Yes Comment: regular Drug use: No REVIEW OF SYSTEMS GENERAL: No weight loss, malaise or fevers/chills HEENT: Negative for frequent or significant headaches, No changes in hearing or vision. NECK: Negative for lumps, goiter, pain and significant neck swelling RESPIRATORY: Negative for cough, hemoptysis, wheezing, dyspnea or shortness of breath CARDIOVASCULAR: Negative for chest pain, leg swelling, orthopnea, or palpitations GI: + Abdominal pain : + Itching around urethra/vaginal pain MUSCULOSKELETAL: Negative for joint pain or swelling. SKIN: Negative for lesions, rash, and itching ENDOCRINE: Negative for cold or heat intolerance, polyuria, polydipsia and goiter NEURO: No history of headaches, syncope, paralysis, seizures or tremors MOOD: Negative for depression, anxiety, or suicidal ideation. EXAM: BP 130/90 Pulse 82 Resp 16 Wt 88.9 kg (196 lb) LMP 07/02/2022 (Exact Date) SpO2 99% BMI 33.64 kg/m PHYSICAL EXAM: General Appearance: Well appearing, alert, in no acute distress, well-hydrated, well nourished. Skin: Skin color, texture, turgor normal, no suspicious rashes or lesions. Head: Normocephalic, no masses, lesions, tenderness or abnormalities. Eyes: Anicteric sclera. Extraocular movements are intact. Lungs: Lungs clear to auscultation. No wheezing, rhonchi, rales. Heart: RRR without murmur, gallop, or rubs. No ectopy. Abdomen: Normal abdominal exam, Abdomen soft, non-tender. Bowel sounds normal. No masses, organomegaly, Negative CVA tenderness. Extremities: No deformities, edema, skin discoloration, clubbing or cyanosis. Good capillary refill. Peripheral Pulses: Normal, Capillary refill <2secs, strong peripheral pulses, Pulses palpable. Pelvic: External genitalia Normal, and vagina normal., Bimanual exam normal., Negative findings: external genitalia normal, no vulvar lesions, no cervical lesions, normal discharge, well estrogenized, vault clean with normal discharge, normal appearing perineal body and perianal region. UA: Normal ASSESSMENT/PLAN: 1. Screening for STD (sexually transmitted disease) - ICD9: V74.5, ICD10: Z11.3 (primary diagnosis) - Get labs completed - Vaginal swabs collected without difficulty, will be sent off for further evaluation. - Instructed to use condoms with sexual intercourse. - Pelvic exam WNL. - GC/CHLAMYDIA DNA DET - SYPHILIS TOTAL W/REFLEX - HIV 1 2 COMBO(AG/AB),WITH REFLEX TO DIFFERENTIATION - HEP C AB IA W/CONF SCRN - HEP B SURF AG SCRN - JAVIER / TRICHOMONAS AMPLIFICATION - BACTERIAL VAGINOSIS AMPLIFICATION 2. Lower abdominal pain - ICD9: 789.09, ICD10: R10.30 - UA WNL, send out for culture. - URINE CULTURE 3. Encounter for test, result unknown - ICD9: V72.40, ICD10: Z32.00 - HCG QUANTITATIVE Follow-up pending test results or sooner as needed Discussed treatment plan and patient voices understanding. Patient's questions answered appropriately. Medications and potential side effects were discussed and patient voices understanding. Clyde Gale APRN.HAILEY This note was partially generated using Yidio recognition system. Note was reviewed for accuracy. There may be minor misspellings or grammar miscues with [employer] voice recognition. documented in this encounter [facility] 07-07-2022 Note HNO ID: [id number] Author: Ashley Saucedo LPN Service: ? Author Type: ? Type: Progress Notes Filed: 07/07/2022 3:42 PM Note Text: Patient presents for B-12 injection. Denies any problems at this time. Patient instructed on any SE of medication, verbalized understanding and agreed to proceed with treatment. Tolerated injection well. Ashley Saucedo LPN [facility] 07-07-2022 History of Presen t illness Narrative Patient presents for B-12 injection. Denies any problems at this time. Patient instructed on any SE of medication, verbalized understanding and agreed to proceed with treatment. Tolerated injection well. Ashley Saucedo LPN documented in this encounter [facility] 07-06-2022 Miscellaneous Notes Behavioral Health Social Work Progress Note Patient identified for [facility] from: PCP Reason for referral: Resources Behavioral Health Resources: Psychiatry med management [facility] encounter type: Telephone Encounter Attempts to Outreach: 1 attempt Referral made: Psychiatry - External, Psychiatry - Internal Psychiatry-Internal referral type: Medication Management Psychiatry-External referral type: Medication Management Reason for external referral: Wait times at [facility] too long, Patient seeking residential support Final Disposition: Unable to reach Patient Discharged?: No Patient reported that caregiver was able to meet their needs today?: N/A Patient already active with counseling services at [facility], they do not offer psychiatry at this agency. Phone call placed today that went to [employer]. Left my contact information and brief nature of call. Initial outreach also completed via [employer] sending list of in network providers with insurance. These include: [facility] (Telehealth available) [address] [phone] *counseling and psychiatry [facility] [address] [place] [phone] *counseling and psychiatry [facility] (Telehealth available) [address] [phone] *counseling and psychiatry [facility] (Telehealth available) [address] [place] [address] *counseling and psychiatry SOFI Wilson July 06, 2022 documented in this encounter [facility] 07-05-2022 Note HNO ID: [id number] Author: Erlin Lawson MD Service: ? Author Type: Physician Type: Progress Notes Filed: 07/05/2022 8:15 PM Note Text: Chief Complaint Patient presents with: F/U 1 month HPI Yenny Lizandro Conklin is a 37 year old female who presents here today for 1 month follow up. Pt here today for a weight follow up. States this has been a rough day and an overall rough month. Currently finding a place to move. Obesity: Finished 2nd month of Adipex 37.5 mg daily. Weight last month was 195 lbs, today is 195.8 lbs. Tolerating medication well, no side effects. Sleeping well and medication does suppress her appetite. She has quit drinking alcohol, admits to drinking 2 tall boys about 4 x per week. Now that she has quit drinking, she is eating more carbs, feels this is why her weight has not changed, but she didn't gain any weight. Denies exercise but is constantly on her feet at work, moving and picking up boxes. Memory - Feels her memory is getting much worse and she is easily distracted. Forgot about her appt until the last very minute today and was then 10 minutes late. Thought that if she gave up drinking it would help her memory, but it hasn't. Feels that she is doing okay without drinking alcohol. Follows with Mukesh from [facility], can only see him every two weeks. Agreeable to see Psych. Asking if Strattera could be increased due to her memory issues or changing her medication. Pt notes she obsesses . Wonders about trying different medications. Her kids [facility]. Anxiety - Dailey that drinking so much alcohol contributed to making her anxiety much worse. Having increased stress due to her living situation and trying to find a new place to live. She is currently in the process of trying to find a new place to live that is within her budget. Pt wrote into office with c/o of OCD. This was not discussed but in pt's mychart message. OCD: having obsessive thoughts and worrying all the time to the point that it is affecting her every day life. She states that the OCD is causing issues with her relationships, stated that she almost lost her man and her roommate because she continues to worry and think things are happing that really are not happening. She is having negative thoughts but tries to tell herself to think positive things, tries to sing happy songs and reminder herself that she is not able to control the things that happen or could happen. She tries to focus on the now and not worry about what could happen in the future. She says there Serenity Prayer daily. She contacted a therapist for cognitive behavioral therapy. She has looked int different medications and is willing to take something but doesn't want any medications that will hinder her overall drive, ability to work, sex drive, wants to feel normal. Has looked into Prozac. Past medical history, appointments, medications, allergies reviewed. Previous Medical History PAST MEDICAL HISTORY Diagnosis Date Dysthymic disorder Depression (non-psychotic) Previous Surgical History PAST SURGICAL HISTORY Procedure Laterality Date DELIVERY ONLY , low cervical x2 MIRENA IUD [id number] PAST SURGICAL HISTORY OF 3 years old tubes put in ears PAST SURGICAL HISTORY OF ear surgery, TM graphing PAST SURGICAL HISTORY OF wisdom teeth removed TONSILLECTOMY PRIMARY/SECONDARY Tonsillectomy Family History FAMILY HISTORY Problem Relation Age of Onset Psychiatry Mother Depression Psychiatry Father Alcoholism Dementia Father 67 None Paternal Grandmother other (Lougherig's disease) Paternal Grandmother other (crohns disease) Sister Psychiatry Sister Bipolar Bipolar disorder Sister Psychiatry Brother Bipolar, schizophrenia Schizophrenia Brother Patient Allergies ALLERGIES Allergen Reactions Bees Current Medications Current Outpatient Medications on File Prior to Visit Medication Sig amoxicillin (AMOXIL) 875 mg tablet Take 1 tablet by mouth twice daily for 7 days. Multivitamin capsule Take 1 capsule by mouth once daily. Phentermine HCl (ADIPEX-P) 37.5 mg capsule Take 1 capsule by mouth once daily for 30 days. atomoxetine (STRATTERA) 100 mg capsule Take 1 capsule by mouth once daily. fluticasone (FLONASE) 50 mcg/actuation nasal spray Use 2 Sprays in each nostril once daily. Rinse mouth after use. venlafaxine ER (EFFEXOR XR) 150 mg 24 hr capsule Take 1 capsule by mouth once daily. JULEBER 0.15-0.03 mg per tablet ergocalciferol 50,000 unit capsule (VITAMIN D2, DRISDOL) Take 1 capsule by mouth one time a week. busPIRone (BUSPAR) 15 mg tablet Take 1 tablet by mouth twice daily. EPINEPHrine (EPIPEN) 0.3 mg/0.3 mL auto-injector Use as directed for bee sting/allergic reaction Current Facility-Administered Medications on File Prior to Visit Medication cyanocobalamin 1,000 mcg injection Social History Social History Tobacco Use (more content not included)... [facility] 07-05-2022 History of Presen t illness Narrative Chief Complaint Patient presents with: F/U 1 month HPI Yenny Conklin is a 37 year old female who presents here today for 1 month follow up. Pt here today for a weight follow up. States this has been a rough day and an overall rough month. Currently finding a place to move. Obesity: Finished 2nd month of Adipex 37.5 mg daily. Weight last month was 195 lbs, today is 195.8 lbs. Tolerating medication well, no side effects. Sleeping well and medication does suppress her appetite. She has quit drinking alcohol, admits to drinking 2 tall boys about 4 x per week. Now that she has quit drinking, she is eating more carbs, feels this is why her weight has not changed, but she didn't gain any weight. Denies exercise but is constantly on her feet at work, moving and picking up boxes. Memory - Feels her memory is getting much worse and she is easily distracted. Forgot about her appt until the last very minute today and was then 10 minutes late. Thought that if she gave up drinking it would help her memory, but it hasn't. Feels that she is doing okay without drinking alcohol. Follows with Mukesh from [place], can only see him every two weeks. Agreeable to see Psych. Asking if Strattera could be increased due to her memory issues or changing her medication. Pt notes she obsesses . Wonders about trying different medications. [facility]. Anxiety - Dailey that drinking so much alcohol contributed to making her anxiety much worse. Having increased stress due to her living situation and trying to find a new place to live. She is currently in the process of trying to find a new place to live that is within her budget. Pt wrote into office with c/o of OCD. This was not discussed but in pt's Intappt message. OCD: having obsessive thoughts and worrying all the time to the point that it is affecting her every day life. She states that the OCD is causing issues with her relationships, stated that she almost lost her man and her roommate because she continues to worry and think things are happing that really are not happening. She is having negative thoughts but tries to tell herself to think positive things, tries to sing happy songs and reminder herself that she is not able to control the things that happen or could happen. She tries to focus on the now and not worry about what could happen in the future. She says there Serenity Prayer daily. She contacted a therapist for cognitive behavioral therapy. She has looked int different medications and is willing to take something but doesn't want any medications that will hinder her overall drive, ability to work, sex drive, wants to feel normal. Has looked into Prozac. Past medical history, appointments, medications, allergies reviewed. Previous Medical History PAST MEDICAL HISTORY Diagnosis Date Dysthymic disorder Depression (non-psychotic) Previous Surgical History PAST SURGICAL HISTORY Procedure Laterality Date DELIVERY ONLY , low cervical x2 MIRENA IUD [id number] PAST SURGICAL HISTORY OF 3 years old tubes put in ears PAST SURGICAL HISTORY OF ear surgery, TM graphing PAST SURGICAL HISTORY OF wisdom teeth removed TONSILLECTOMY PRIMARY/SECONDARY <AGE 12 Tonsillectomy Family History FAMILY HISTORY Problem Relation Age of Onset Psychiatry Mother Depression Psychiatry Father Alcoholism Dementia Father 67 None Paternal Grandmother other (Lougherig's disease) Paternal Grandmother other (crohns disease) Sister Psychiatry Sister Bipolar Bipolar disorder Sister Psychiatry Brother Bipolar, schizophrenia Schizophrenia Brother Patient Allergies ALLERGIES Allergen Reactions Bees Current Medications Current Outpatient Medications on File Prior to Visit Medication Sig amoxicillin (AMOXIL) 875 mg tablet Take 1 tablet by mouth twice daily for 7 days. Multivitamin capsule Take 1 capsule by mouth once daily. Phentermine HCl (ADIPEX-P) 37.5 mg capsule Take 1 capsule by mouth once daily for 30 days. atomoxetine (STRATTERA) 100 mg capsule Take 1 capsule by mouth once daily. fluticasone (FLONASE) 50 mcg/actuation nasal spray Use 2 Sprays in each nostril once daily. Rinse mouth after use. venlafaxine ER (EFFEXOR XR) 150 mg 24 hr capsule Take 1 capsule by mouth once daily. JULEBER 0.15-0.03 mg per tablet ergocalciferol 50,000 unit capsule (VITAMIN D2, DRISDOL) Take 1 capsule by mouth one time a week. busPIRone (BUSPAR) 15 mg tablet Take 1 tablet by mouth twice daily. EPINEPHrine (EPIPEN) 0.3 mg/0.3 mL auto-injector Use as directed for bee sting/allergic reaction Current Facility-Administered Medications on File Prior to Visit Medication cyanocobalamin 1,000 mcg injection Social History Social History Tobacco Use Smoking status: Never Smokeless tobacco: Never Vaping Use Vaping Use: Never used Substance Use Topics Alcohol use: Yes Comment: regular Drug use: No EXAM: BP 134/86 (BP Site: Left Arm, BP Position: Sitting, BP Cuff Size: Regular Adult) Pulse 80 Resp 16 Wt 88.8 kg (195 lb 12.8 oz) LMP 05/26/2022 (Approximate) BMI 33.61 kg/m General Appearance: Well appearing, alert, in no acute distress, well-hydrated, well nourished. and Obese. Lungs: Lungs clear to auscultation. No wheezing, rhonchi, rales.. Heart: RRR without murmur, gallop, or rubs. No ectopy. Health Maintenance List DTAP,TDAP,TD(2 - Td or Tdap) due on 12/24/2019 HEPATITIS B(2 of 3 - 19+ 3-dose series) due on 03/16/2021 COVID-19 VACCINE(3 - Booster for Pfizer series) due on 05/12/2021 INFLUENZA(1) due on 02/04/2022 PAP TESTING due on 03/19/2025 HPV TESTING due on 03/19/2025 HEPATITIS C SCREENING Completed HIV SCREENING Completed Data reviewed Weight graph ASSESSMENT/PLAN: 1. Obesity, Class I, BMI 30-34.9 - ICD9: 278.00, ICD10: E66.9 (primary diagnosis) Stable Rx #3 given - PHENTERMINE 37.5 MG CAPSULE 2. Depression, unspecified depression type - ICD9: 311, ICD10: F32.A - CONSULT TO PRIMARY CARE BEHAVIORAL HEALTH ADULT 3. Anxiety - ICD9: 300.00, ICD10: F41.9 - CONSULT TO PRIMARY CARE BE[facility]IORAL HEALTH ADULT 4. Attention deficit disorder, unspecified hyperactivity presence - ICD9: 314.00, ICD10: F98.8 - CONSULT TO PRIMARY [facility]ARE [facility]IORAL HE[facility] ADULT 5. Memory loss - ICD9: 780.93, ICD10: R41.3 - CONSULT TO PRIMARY CARE BEHAVIORAL HEALTH ADULT 1 month follow up for weight I agree with the Chief Complaint, ROS, and Past Histories independently gathered by the clinical sales support advisor and the remaining scribed note accurately describes my personal service to the patient. Medical Decision Making: Problems: Low: Stable chronic illness Moderate: 1+ chronic illnesses with change Risk: Moderate: Drug management Medical Decision Making Level: 4 - Moderate Erlin Lawosn MD The documentation for this note was completed by Cleo Baldwin Ma acting as scribe for Erlin Lawson MD. July 05, 2022 7:08 PM. Cleo Baldwin Ma documented in this encounter [facility] 06-17-2022 Influenza virus A and B RNA and SARS-CoV-2 (COVID-19) N gene panel DARIUS+probe (Resp) COVID 19 RESULT: SARS-CoV-2 (Agent of COVID-19) Not Detected by RT-PCR or equivalent method. This test was developed and its performance characteristics determined by [facility] [place]. This test has been authorized by FDA under an Emergency Use Authorization (EUA). This test has been validated in accordance with the FDA's Guidance Document Policy for Diagnostics Testing in Laboratories Certified to Perform High Complexity Testing under CLIA prior to Emergency use Authorization for Coronavirus Disease 2019 during the Public Health Emergency issued on August 04, 2019. Test performed by [facility], [facility] [place], [facility] [place] [address]. INFLUENZA A PCR: Negative for Influenza A by RT-PCR INFLUENZA B PCR: Negative for Influenza B by RT-PCR [facility] documented as of this encounter (statuses as of 08/31/2021) [facility]05-19-2009 History of Past illness Narrative* Problem Noted Date Resolved Date Total perforation of tympanic membrane 9 06/02/2012 Overview: Right TM perforation Depressive disorder, not elsewhere classified 02/28/2014 documented as of this encounter (statuses as of 09/01/2021) [address]19-2009 History of Past illness Narrative* Problem Noted Date Resolved Date Total perforation of tympanic membrane 9 06/02/2012 Overview: Right TM perforation Depressive disorder, not elsewhere classified 02/28/2014 documented as of this encounter (statuses as of 09/15/2021) [address]19[address]2009 History of Past illness Narrative* Problem Noted Date Resolved Date Total perforation of tympanic membrane 9 06/02/2012 Overview: Right TM perforation Depressive disorder, not elsewhere classified 02/28/2014 documented as of this encounter (statuses as of 10/07/2021) [address]19[address]2009 History of Past illness Narrative* Problem Noted Date Resolved Date Total perforation of tympanic membrane 9 06/02/2012 Overview: Right TM perforation Depressive disorder, not elsewhere classified 02/28/2014 documented as of this encounter (statuses as of 10/26/2021) [address]19[address]2009 History of Past illness Narrative* Problem Noted Date Resolved Date Total perforation of tympanic membrane 9 06/02/2012 Overview: Right TM perforation Depressive disorder, not elsewhere classified 02/28/2014 documented as of this encounter (statuses as of 11/06/2021) [address]19[address]2009 History of Past illness Narrative* Problem Noted Date Resolved Date Total perforation of tympanic membrane 9 06/02/2012 Overview: Right TM perforation Depressive disorder, not elsewhere classified 02/28/2014 documented as of this encounter (statuses as of 11/10/2021) [address]19[address]2009 History of Past illness Narrative* Problem Noted Date Resolved Date Total perforation of tympanic membrane 9 06/02/2012 Overview: Right TM perforation Depressive disorder, not elsewhere classified 02/28/2014 documented as of this encounter (statuses as of 11/17/2021) [address]19[address]2009 History of Past illness Narrative* Problem Noted Date Resolved Date Total perforation of tympanic membrane 9 06/02/2012 Overview: Right TM perforation Depressive disorder, not elsewhere classified 02/28/2014 documented as of this encounter (statuses as of 11/30/2021) [address]19[address]2009 History of Past illness Narrative* Problem Noted Date Resolved Date Total perforation of tympanic membrane 9 06/02/2012 Overview: Right TM perforation Depressive disorder, not elsewhere classified 02/28/2014 documented as of this encounter (statuses as of 12/03/2021) [address]19[address]2009 History of Past illness Narrative* Problem Noted Date Resolved Date Total perforation of tympanic membrane 9 06/02/2012 Overview: Right TM perforation Depressive disorder, not elsewhere classified 02/28/2014 documented as of this encounter (statuses as of 12/15/2021) [address]19[address]2009 History of Past illness Narrative* Problem Noted Date Resolved Date Total perforation of tympanic membrane 9 06/02/2012 Overview: Right TM perforation Depressive disorder, not elsewhere classified 02/28/2014 documented as of this encounter (statuses as of 12/22/2021) [address]19[address]2009 History of Past illness Narrative* Problem Noted Date Resolved Date Total perforation of tympanic membrane 9 06/02/2012 Overview: Right TM perforation Depressive disorder, not elsewhere classified 02/28/2014 documented as of this encounter (statuses as of 01/12/2022) [address]19[address]2009 History of Past illness Narrative* Problem Noted Date Resolved Date Total perforation of tympanic membrane 9 06/02/2012 Overview: Right TM perforation Depressive disorder, not elsewhere classified 02/28/2014 documented as of this encounter (statuses as of 02/07/2022) [address]19[address]2009 History of Past illness Narrative* Problem Noted Date Resolved Date Total perforation of tympanic membrane 9 06/02/2012 Overview: Right TM perforation Depressive disorder, not elsewhere classified 02/28/2014 documented as of this encounter (statuses as of 03/11/2022) [address]19[address]2009 History of Past illness Narrative* Problem Noted Date Resolved Date Total perforation of tympanic membrane 9 06/02/2012 Overview: Right TM perforation Depressive disorder, not elsewhere classified 02/28/2014 documented as of this encounter (statuses as of 03/19/2022) [address]19[address]2009 History of Past illness Narrative* Problem Noted Date Resolved Date Total perforation of tympanic membrane 9 06/02/2012 Overview: Right TM perforation Depressive disorder, not elsewhere classified 02/28/2014 documented as of this encounter (statuses as of 04/12/2022) [address]19[address]2009 History of Past illness Narrative* Problem Noted Date Resolved Date Total perforation of tympanic membrane 9 06/02/2012 Overview: Right TM perforation Depressive disorder, not elsewhere classified 02/28/2014 documented as of this encounter (statuses as of 05/04/2022) [address]19-2009 History of Past illness Narrative* Problem Noted Date Resolved Date Total perforation of tympanic membrane 9 06/02/2012 Overview: Right TM perforation Depressive disorder, not elsewhere classified 02/28/2014 documented as of this encounter (statuses as of 05/10/2022) [address]19-2009 History of Past illness Narrative* Problem Noted Date Resolved Date Total perforation of tympanic membrane 9 06/02/2012 Overview: Right TM perforation Depressive disorder, not elsewhere classified 02/28/2014 documented as of this encounter (statuses as of 05/18/2022) [address]19-2009 History of Past illness Narrative* Problem Noted Date Resolved Date Total perforation of tympanic membrane 9 06/02/2012 Overview: Right TM perforation Depressive disorder, not elsewhere classified 02/28/2014 documented as of this encounter (statuses as of 06/09/2022) [address]19[address]2009 History of Past illness Narrative* Problem Noted Date Resolved Date Total perforation of tympanic membrane 9 06/02/2012 Overview: Right TM perforation Depressive disorder, not elsewhere classified 02/28/2014 documented as of this encounter (statuses as of 06/17/2022) [address]19[address]2009 History of Past illness Narrative* Problem Noted Date Resolved Date Total perforation of tympanic membrane 9 06/02/2012 Overview: Right TM perforation Depressive disorder, not elsewhere classified 02/28/2014 documented as of this encounter (statuses as of 07/06/2022) [address]19[address]2009 History of Past illness Narrative* Problem Noted Date Resolved Date Total perforation of tympanic membrane 9 06/02/2012 Overview: Right TM perforation Depressive disorder, not elsewhere classified 02/28/2014 documented as of this encounter (statuses as of 07/06/2022) [address]19-2009 History of Past illness Narrative* Problem Noted Date Resolved Date Total perforation of tympanic membrane 9 06/02/2012 Overview: Right TM perforation Depressive disorder, not elsewhere classified 02/28/2014 documented as of this encounter (statuses as of 07/07/2022) [address]19-2009 History of Past illness Narrative* Problem Noted Date Resolved Date Total perforation of tympanic membrane 9 06/02/2012 Overview: Right TM perforation Depressive disorder, not elsewhere classified 02/28/2014 documented as of this encounter (statuses as of 07/08/2022) [address]19-2009 History of Past illness Narrative* Problem Noted Date Resolved Date Total perforation of tympanic membrane 9 06/02/2012 Overview: Right TM perforation Depressive disorder, not elsewhere classified 02/28/2014 documented as of this encounter (statuses as of 07/09/2022) [address]19-2009 History of Past illness Narrative* Problem Noted Date Resolved Date Total perforation of tympanic membrane 9 06/02/2012 Overview: Right TM perforation Depressive disorder, not elsewhere classified 02/28/2014 documented as of this encounter (statuses as of 07/12/2022) [address]19-2009 History of Past illness Narrative* Problem Noted Date Resolved Date Total perforation of tympanic membrane 9 06/02/2012 Overview: Right TM perforation Depressive disorder, not elsewhere classified 02/28/2014 documented as of this encounter (statuses as of 07/14/2022) [address]19-2009 History of Past illness Narrative* Problem Noted Date Resolved Date Total perforation of tympanic membrane 9 06/02/2012 Overview: Right TM perforation Depressive disorder, not elsewhere classified 02/28/2014 documented as of this encounter (statuses as of 07/27/2022) [address]19-2009 History of Past illness Narrative* Problem Noted Date Resolved Date Total perforation of tympanic membrane 9 06/02/2012 Overview: Right TM perforation Depressive disorder, not elsewhere classified 02/28/2014 documented as of this encounter (statuses as of 07/28/2022) [address]19-2009 History of Past illness Narrative* Problem Noted Date Resolved Date Total perforation of tympanic membrane 9 06/02/2012 Overview: Right TM perforation Depressive disorder, not elsewhere classified 02/28/2014 documented as of this encounter (statuses as of 08/03/2022) [address]19-2009 History of Past illness Narrative* Problem Noted Date Resolved Date Total perforation of tympanic membrane 9 06/02/2012 Overview: Right TM perforation Depressive disorder, not elsewhere classified 02/28/2014 documented as of this encounter (statuses as of 08/19/2022) [address]19-2009 History of Past illness Narrative* Problem Noted Date Resolved Date Total perforation of tympanic membrane 9 06/02/2012 Overview: Right TM perforation Depressive disorder, not elsewhere classified 02/28/2014 documented as of this encounter (statuses as of 08/21/2022) [address]19-2009 History of Past illness Narrative* Problem Noted Date Resolved Date Total perforation of tympanic membrane 9 06/02/2012 Overview: Right TM perforation Depressive disorder, not elsewhere classified 02/28/2014 documented as of this encounter (statuses as of 09/01/2022) [address]19-2009 History of Past illness Narrative* Problem Noted Date Resolved Date Total perforation of tympanic membrane 9 06/02/2012 Overview: Right TM perforation Depressive disorder, not elsewhere classified 02/28/2014 documented as of this encounter (statuses as of 09/18/2022) [address]19-2009 History of Past illness Narrative* Problem Noted Date Resolved Date Total perforation of tympanic membrane 9 06/02/2012 Overview: Right TM perforation Depressive disorder, not elsewhere classified 02/28/2014 documented as of this encounter (statuses as of 10/07/2022) [address]19-2009 History of Past illness Narrative* Problem Noted Date Resolved Date Total perforation of tympanic membrane 9 06/02/2012 Overview: Right TM perforation Depressive disorder, not elsewhere classified 02/28/2014 documented as of this encounter (statuses as of 10/07/2022) [address]19-2009 History of Past illness Narrative* Problem Noted Date Resolved Date Total perforation of tympanic membrane 9 06/02/2012 Overview: Right TM perforation Depressive disorder, not elsewhere classified 02/28/2014 documented as of this encounter (statuses as of 11/02/2022) [address]19-2009 History of Past illness Narrative* Problem Noted Date Resolved Date Total perforation of tympanic membrane 9 06/02/2012 Overview: Right TM perforation Depressive disorder, not elsewhere classified 02/28/2014 documented as of this encounter (statuses as of 12/02/2022) [facility] History of Past illness Narrative* Problem Noted Date Resolved Date Total perforation of tympanic membrane 9 06/02/2012 Overview: Right TM perforation Depressive disorder, not elsewhere classified 02/28/2014 documented as of this encounter (statuses as of 12/10/2022) [facility] History of Past illness Narrative* Problem Noted Date Resolved Date Total perforation of tympanic membrane 9 06/02/2012 Overview: Right TM perforation Depressive disorder, not elsewhere classified 02/28/2014 documented as of this encounter (statuses as of 12/10/2022) [address]19-2009 History of Past illness Narrative* Problem Noted Date Diagnosed Date Resolved Date Total perforation of tympanic membrane 10/22/2008 06/02/2012 Overview: Right TM perforation Depressive disorder, not elsewhere classified 10/16/1902/28/2014 documented as of this encounter (statuses as of 01/06/2023) [address]19-2009 History of Past illness Narrative* Problem Noted Date Diagnosed Date Resolved Date Total perforation of tympanic membrane 10/22/2008 06/02/2012 Overview: Right TM perforation Depressive disorder, not elsewhere classified 10/16/1902/28/2014 documented as of this encounter (statuses as of 01/06/2023) [address]19-2009 History of Past illness Narrative* Problem Noted Date Diagnosed Date Resolved Date Total perforation of tympanic membrane 10/22/2008 06/02/2012 Overview: Right TM perforation Depressive disorder, not elsewhere classified 10/16/1902/28/2014 documented as of this encounter (statuses as of 01/08/2023) [address]19-2009 History of Past illness Narrative* Problem Noted Date Diagnosed Date Resolved Date Total perforation of tympanic membrane 10/22/2008 06/02/2012 Overview: Right TM perforation Depressive disorder, not elsewhere classified 10/16/1902/28/2014 documented as of this encounter (statuses as of 01/21/2023) [address]19-2009 History of Past illness Narrative* Problem Noted Date Diagnosed Date Resolved Date Total perforation of tympanic membrane 10/22/2008 06/02/2012 Overview: Right TM perforation Depressive disorder, not elsewhere classified 10/16/1902/28/2014 documented as of this encounter (statuses as of 05/07/2023) [facility] Bruising Contusion of unspecified site Leg cramping Cramp of limb [facility] Diagnosis Anxiety Anxiety state, unspecified [facility] Diagnosis Vitamin D deficiency- Primary Unspecified vitamin D deficiency Vitamin B12 deficiency Other B-complex deficiencies documented in this encounter [facility] note* Diagnosis Vitamin B12 deficiency- Primary Other B-complex deficiencies documented in this encounter [facility] note* Diagnosis Vitamin B12 deficiency- Primary Other B-complex deficiencies documented in this encounter [facility] note* Diagnosis Attention deficit disorder, unspecified hyperactivity presence documented in this encounter [facility] note* Diagnosis Vitamin B12 deficiency- Primary Other B-complex deficiencies documented in this encounter [facility] note* Diagnosis Attention deficit disorder, unspecified hyperactivity presence documented in this encounter [facility] note* Diagnosis Vitamin B12 deficiency- Primary Other B-complex deficiencies documented in this encounter [facility] note* Diagnosis Bacterial sinusitis- Primary Unspecified sinusitis (chronic) documented in this encounter [facility] note* Diagnosis Vitamin B12 deficiency- Primary Other B-complex deficiencies documented in this encounter [facility] note* Diagnosis Anxiety Anxiety state, unspecified documented in this encounter [facility] note* Diagnosis Obesity, Class I, BMI 30-34.9- Primary Obesity, unspecified documented in this encounter [facility] note* Diagnosis Attention deficit disorder, unspecified hyperactivity presence documented in this encounter [facility] note* Diagnosis Suspected COVID-19 virus infection- Primary Acute otitis media, bilateral Unspecified otitis media documented in this encounter [facility] note* Diagnosis Obesity, Class I, BMI 30-34.9- Primary Obesity, unspecified Depression, unspecified depression type Anxiety Anxiety state, unspecified Attention deficit disorder, unspecified hyperactivity presence Memory loss documented in this encounter [facility] note* Diagnosis Screening for STD (sexually transmitted disease)- Primary Screening examination for venereal disease Lower abdominal pain Abdominal pain, other specified site Encounter for test, result unknown documented in this encounter [facility] note* Diagnosis Vaginal yeast infection- Primary Candidiasis of vulva and vagina documented in this encounter [facility] note* Diagnosis Acute vaginitis- Primary Vaginitis and vulvovaginitis, unspecified Secondary amenorrhea Absence of menstruation Urinary incontinence, unspecified type documented in this encounter [facility] note* Diagnosis Abdominal complaints- Primary Other symptoms involving abdomen and pelvis Other acute nonsuppurative otitis media of right ear, recurrence not specified [facility] Diagnosis Vaginal discharge- Primary Leukorrhea, not specified as infective UTI symptoms Other symptoms involving urinary system [facility] Diagnosis Need for vaccination- Primary Need for prophylactic vaccination and inoculation against unspecified single disease [facility] Diagnosis Dental infection- Primary Acute apical periodontitis of pulpal origin documented in this encounter [facility] note* Diagnosis Attention deficit disorder, unspecified hyperactivity presence [facility] Diagnosis Attention deficit disorder, unspecified hyperactivity presence Anxiety Anxiety state, unspecified [facility] Diagnosis Pain of right eye- Primary Pain in or around eye [facility] Diagnosis Anxiety with depression- Primary [facility] Diagnosis Urinary tract infection without hematuria, site unspecified- Primary Secondary amenorrhea Absence of menstruation Screening for STD (sexually transmitted disease) Screening examination for venereal disease documented in this encounter [facility] note* Diagnosis Anxiety with depression Anxiety with depression- Primary [facility] Diagnosis Vaginal discharge- Primary Leukorrhea, not specified as infective Anxiety with depression- Primary [facility] Diagnosis Treatment not available- Primary Procedure not carried out for other reasons documented in this encounter [facility] for referral (narrative)* Diagnostic Procedure Only (Urgent) - Closed Specialty Diagnoses / Procedures Referred By Jennifer quijano Referred To Contact US IMAGING Diagnoses Bruising Leg cramping Procedures US DVT LOWER LT DUP-SCAN XTR VEINS UNILATERAL/LIMITED STUDY Shahida Castro PA-C [address] [place] [address] Us Imaging Referral ID Status Reason Start Date Expiration Date V isits Requested Visits Authorized [id number] Closed Auto-Generate d Referral 08/28/2021 09/27/2022 1 1 [facility] Medications Administered Section Active Administered Medications - up to 3 most recent administrations Medication Order MAR Action Action Date Dose Rate Site cyanocobalamin 1,000 mcg injection 1,000 mcg, INTRAMUSCULAR, 1 TIME WEEKLY, 4 doses, First dose on Tue10/08/21 at 0800, Last dose on Tue10/29/21 at 0800 Given 10/26/2021 3:41 PM EDT 1,000 mcg Deltoid, Left Active Administered Medications - up to 3 most recent administrations Medication Order MAR Action Action Date Dose Rate Site cyanocobalamin 1,000 mcg injection 1,000 mcg, INTRAMUSCULAR, 1 TIME WEEKLY, 3 doses, First dose on Tue11/06/21 at 1230, Last dose on Tue11/20/21 at 1230 Given 11/10/2021 3:50 PM EDT 1,000 mcg Deltoid, Left Active Administered Medications - up to 3 most recent administrations Medication Order MAR Action Action Date Dose Rate Site cyanocobalamin 1,000 mcg injection 1,000 mcg, INTRAMUSCULAR, EVERY 4 WEEKS, 12 doses, First dose on Tue11/06/21 at 1230, Last dose on Tue09/10/22 at 1230 Given 11/30/2021 3:42 PM EDT 1,000 mcg Deltoid, Right Active Administered Medications - up to 3 most recent administrations Medication Order MAR Action Action Date Dose Rate Site cyanocobalamin 1,000 mcg injection 1,000 mcg, INTRAMUSCULAR, EVERY 4 WEEKS, 12 doses, First dose on Tue11/06/21 at 1230, Last dose on Tue09/10/22 at 1230 Given 12/15/2021 4:03 PM EDT 1,000 mcg Deltoid, Left Active Administered Medications - up to 3 most recent administrations Medication Order MAR Action Action Date Dose Rate Site cyanocobalamin 1,000 mcg injection 1,000 mcg, INTRAMUSCULAR, EVERY 4 WEEKS, 12 doses, First dose on Tue11/06/21 at 1230, Last dose on Tue09/10/22 at 1230 Given 01/12/2022 3:57 PM EDT 1,000 mcg Deltoid, Right Active Administered Medications - up to 3 most recent administrations Medication Order MAR Action Action Date Dose Rate Site cyanocobalamin 1,000 mcg injection 1,000 mcg, INTRAMUSCULAR, EVERY 4 WEEKS, 12 doses, First dose on Tue11/06/21 at 1230, Last dose on Tue09/10/22 at 1230 Given 03/11/2022 3:52 PM EDT 1,000 mcg Deltoid, Left Active Administered Medications - up to 3 most recent administrations Medication Order MAR Action Action Date Dose Rate Site cyanocobalamin 1,000 mcg injection 1,000 mcg, INTRAMUSCULAR, EVERY 4 WEEKS, 12 doses, First dose on Tue11/06/21 at 1230, Last dose on Tue09/10/22 at 1230 Given 04/12/2022 3:36 PM EST 1,000 mcg Deltoid, Right Active Administered Medications - up to 3 most recent administrations Medication Order MAR Action Action Date Dose Rate Site cyanocobalamin 1,000 mcg injection 1,000 mcg, INTRAMUSCULAR, EVERY 4 WEEKS, 12 doses, First dose on Tue11/06/21 at 1230, Last dose on Tue09/10/22 at 1230 Given 05/10/2022 3:24 PM EST 1,000 mcg Deltoid, Left Active Administered Medications - up to 3 most recent administrations Medication Order MAR Action Action Date Dose Rate Site cyanocobalamin 1,000 mcg injection 1,000 mcg, INTRAMUSCULAR, EVERY 4 WEEKS, 12 doses, First dose on Tue11/06/21 at 1230, Last dose on Tue09/10/22 at 1230 Given 07/07/2022 3:41 PM EST 1,000 mcg Deltoid, Right Active Administered Medications - up to 3 most recent administrations Medication Order MAR Action Action Date Dose Rate Site cyanocobalamin 1,000 mcg injection 1,000 mcg, INTRAMUSCULAR, EVERY 4 WEEKS, 12 doses, First dose on Tue11/06/21 at 1230, Last dose on Tue09/10/22 at 1230 Given 09/01/2022 3:34 PM EDT 1,000 mcg Deltoid, Right Health Concerns Infection Onset Date Last Indicated Resolved Time COVID-19 Rule-Out 06/17/2022 06/17/2022 Summary Purpose Family History No Family History Records Found Advance Directives No Advanced Directives Records Found Additional Source Comments Source Comments (unrecognize d section and content) In the event this informatio n is protected by the Federal Confidentiality of Alcohol and Drug Abuse Patient Records regulations: The Federal rules restrict any use of the information to criminally investigate or prosecute any alcohol or drug abuse patient.[facility] the event this information is protected by the Federal Confidentiality of Alcohol and Drug Abuse Patient Records regulations: The Federal rules restrict any use of the information to criminally investigate or prosecute any alcohol or drug abuse patient.[facility] the event this information is protected by the Federal Confidentiality of Alcohol and Drug Abuse Patient Records regulations: The Federal rules restrict any use of the information to criminally investigate or prosecute any alcohol or drug abuse patient.[facility] the event this information is protected by the Federal Confidentiality of Alcohol and Drug Abuse Patient Records regulations: The Federal rules restrict any use of the information to criminally investigate or prosecute any alcohol or drug abuse patient.[facility] the event this information is protected by the Federal Confidentiality of Alcohol and Drug Abuse Patient Records regulations: The Federal rules restrict any use of the information to criminally investigate or prosecute any alcohol or drug abuse patient.[facility] the event this information is protected by the Federal Confidentiality of Alcohol and Drug Abuse Patient Records regulations: The Federal rules restrict any use of the information to criminally investigate or prosecute any alcohol or drug abuse patient.[facility] the event this information is protected by the Federal Confidentiality of Alcohol and Drug Abuse Patient Records regulations: The Federal rules restrict any use of the information to criminally investigate or prosecute any alcohol or drug abuse patient.[facility] the event this information is protected by the Federal Confidentiality of Alcohol and Drug Abuse Patient Records regulations: The Federal rules restrict any use of the information to criminally investigate or prosecute any alcohol or drug abuse patient.[facility] the event this information is protected by the Federal Confidentiality of Alcohol and Drug Abuse Patient Records regulations: The Federal rules restrict any use of the information to criminally investigate or prosecute any alcohol or drug abuse patient.[facility] the event this information is protected by the Federal Confidentiality of Alcohol and Drug Abuse Patient Records regulations: The Federal rules restrict any use of the information to criminally investigate or prosecute any alcohol or drug abuse patient.[facility] the event this information is protected by the Federal Confidentiality of Alcohol and Drug Abuse Patient Records regulations: The Federal rules restrict any use of the information to criminally investigate or prosecute any alcohol or drug abuse patient.[facility] the event this information is protected by the Federal Confidentiality of Alcohol and Drug Abuse Patient Records regulations: The Federal rules restrict any use of the information to criminally investigate or prosecute any alcohol or drug abuse patient.[facility] the event this information is protected by the Federal Confidentiality of Alcohol and Drug Abuse Patient Records regulations: The Federal rules restrict any use of the information to criminally investigate or prosecute any alcohol or drug abuse patient.[facility]In the event this information is protected by the Federal Confidentiality of Alcohol and Drug Abuse Patient Records regulations: The Federal rules restrict any use of the information to criminally investigate or prosecute any alcohol or drug abuse patient.[facility]In the event this information is protected by the Federal Confidentiality of Alcohol and Drug Abuse Patient Records regulations: The Federal rules restrict any use of the information to criminally investigate or prosecute any alcohol or drug abuse patient.[facility] HospitalIn the event this information is protected by the Federal Confidentiality of Alcohol and Drug Abuse Patient Records regulations: The Federal rules restrict any use of the information to criminally investigate or prosecute any alcohol or drug abuse patient.[facility] HospitalIn the event this information is protected by the Federal Confidentiality of Alcohol and Drug Abuse Patient Records regulations: The Federal rules restrict any use of the information to criminally investigate or prosecute any alcohol or drug abuse patient.[facility]In the event this information is protected by the Federal Confidentiality of Alcohol and Drug Abuse Patient Records regulations: The Federal rules restrict any use of the information to criminally investigate or prosecute any alcohol or drug abuse patient.[facility] HospitalIn the event this information is protected by the Federal Confidentiality of Alcohol and Drug Abuse Patient Records regulations: The Federal rules restrict any use of the information to criminally investigate or prosecute any alcohol or drug abuse patient.[facility]In the event this information is protected by the Federal Confidentiality of Alcohol and Drug Abuse Patient Records regulations: The Federal rules restrict any use of the information to criminally investigate or prosecute any alcohol or drug abuse patient.[facility] HospitalIn the event this information is protected by the Federal Confidentiality of Alcohol and Drug Abuse Patient Records regulations: The Federal rules restrict any use of the information to criminally investigate or prosecute any alcohol or drug abuse patient.[facility] HospitalIn the event this information is protected by the Federal Confidentiality of Alcohol and Drug Abuse Patient Records regulations: The Federal rules restrict any use of the information to criminally investigate or prosecute any alcohol or drug abuse patient.[facility] HospitalIn the event this information is protected by the Federal Confidentiality of Alcohol and Drug Abuse Patient Records regulations: The Federal rules restrict any use of the information to criminally investigate or prosecute any alcohol or drug abuse patient.[facility]In the event this information is protected by the Federal Confidentiality of Alcohol and Drug Abuse Patient Records regulations: The Federal rules restrict any use of the information to criminally investigate or prosecute any alcohol or drug abuse patient.[facility]In the event this information is protected by the Federal Confidentiality of Alcohol and Drug Abuse Patient Records regulations: The Federal rules restrict any use of the information to criminally investigate or prosecute any alcohol or drug abuse patient.[facility]In the event this information is protected by the Federal Confidentiality of Alcohol and Drug Abuse Patient Records regulations: The Federal rules restrict any use of the information to criminally investigate or prosecute any alcohol or drug abuse patient.[facility]In the event this information is protected by the Federal Confidentiality of Alcohol and Drug Abuse Patient Records regulations: The Federal rules restrict any use of the information to criminally investigate or prosecute any alcohol or drug abuse patient.[facility] HospitalIn the event this information is protected by the Federal Confidentiality of Alcohol and Drug Abuse Patient Records regulations: The Federal rules restrict any use of the information to criminally investigate or prosecute any alcohol or drug abuse patient.[facility] HospitalIn the event this information is protected by the Federal Confidentiality of Alcohol and Drug Abuse Patient Records regulations: The Federal rules restrict any use of the information to criminally investigate or prosecute any alcohol or drug abuse patient.[facility] HospitalIn the event this information is protected by the Federal Confidentiality of Alcohol and Drug Abuse Patient Records regulations: The Federal rules restrict any use of the information to criminally investigate or prosecute any alcohol or drug abuse patient.[facility] HospitalIn the event this information is protected by the Federal Confidentiality of Alcohol and Drug Abuse Patient Records regulations: The Federal rules restrict any use of the information to criminally investigate or prosecute any alcohol or drug abuse patient.[facility] HospitalIn the event this information is protected by the Federal Confidentiality of Alcohol and Drug Abuse Patient Records regulations: The Federal rules restrict any use of the information to criminally investigate or prosecute any alcohol or drug abuse patient.[facility] HospitalIn the event this information is protected by the Federal Confidentiality of Alcohol and Drug Abuse Patient Records regulations: The Federal rules restrict any use of the information to criminally investigate or prosecute any alcohol or drug abuse patient.[facility]In the event this information is protected by the Federal Confidentiality of Alcohol and Drug Abuse Patient Records regulations: The Federal rules restrict any use of the information to criminally investigate or prosecute any alcohol or drug abuse patient.[facility] HospitalIn the event this information is protected by the Federal Confidentiality of Alcohol and Drug Abuse Patient Records regulations: The Federal rules restrict any use of the information to criminally investigate or prosecute any alcohol or drug abuse patient.[facility] HospitalIn the event this information is protected by the Federal Confidentiality of Alcohol and Drug Abuse Patient Records regulations: The Federal rules restrict any use of the information to criminally investigate or prosecute any alcohol or drug abuse patient.[facility] the event this information is protected by the Federal Confidentiality of Alcohol and Drug Abuse Patient Records regulations: The Federal rules restrict any use of the information to criminally investigate or prosecute any alcohol or drug abuse patient.[facility] HospitalIn the event this information is protected by the Federal Confidentiality of Alcohol and Drug Abuse Patient Records regulations: The Federal rules restrict any use of the information to criminally investigate or prosecute any alcohol or drug abuse patient.[facility] HospitalIn the event this information is protected by the Federal Confidentiality of Alcohol and Drug Abuse Patient Records regulations: The Federal rules restrict any use of the information to criminally investigate or prosecute any alcohol or drug abuse patient.[facility] HospitalIn the event this information is protected by the Federal Confidentiality of Alcohol and Drug Abuse Patient Records regulations: The Federal rules restrict any use of the information to criminally investigate or prosecute any alcohol or drug abuse patient.[facility]In the event this information is protected by the Federal Confidentiality of Alcohol and Drug Abuse Patient Records regulations: The Federal rules restrict any use of the information to criminally investigate or prosecute any alcohol or drug abuse patient.[facility]In the event this information is protected by the Federal Confidentiality of Alcohol and Drug Abuse Patient Records regulations: The Federal rules restrict any use of the information to criminally investigate or prosecute any alcohol or drug abuse patient.[facility]In the event this information is protected by the Federal Confidentiality of Alcohol and Drug Abuse Patient Records regulations: The Federal rules restrict any use of the information to criminally investigate or prosecute any alcohol or drug abuse patient.[facility]In the event this information is protected by the Federal Confidentiality of Alcohol and Drug Abuse Patient Records regulations: The Federal rules restrict any use of the information to criminally investigate or prosecute any alcohol or drug abuse patient.[facility] HospitalIn the event this information is protected by the Federal Confidentiality of Alcohol and Drug Abuse Patient Records regulations: The Federal rules restrict any use of the information to criminally investigate or prosecute any alcohol or drug abuse patient.[facility] HospitalIn the event this information is protected by the Federal Confidentiality of Alcohol and Drug Abuse Patient Records regulations: The Federal rules restrict any use of the information to criminally investigate or prosecute any alcohol or drug abuse patient.[facility] HospitalIn the event this information is protected by the Federal Confidentiality of Alcohol and Drug Abuse Patient Records regulations: The Federal rules restrict any use of the information to criminally investigate or prosecute any alcohol or drug abuse patient.[facility] HospitalIn the event this information is protected by the Federal Confidentiality of Alcohol and Drug Abuse Patient Records regulations: The Federal rules restrict any use of the information to criminally investigate or prosecute any alcohol or drug abuse patient.[facility] Reason for Visit (unrecogniz ed section and content) Reason Comments Radiology US Specialty Diagnoses / Procedures Referred By Jennifer quijano Referred To Contact US IMAGING Diagnoses Bruising Leg cramping Procedures US DVT LOWER LT DUP-SCAN XTR VEINS UNILATERAL/LIMITED STUDY Shahida Castro, KARON [address] [place] [address] Us Imaging Referral ID Status Reason Start Date Expiration Date V isits Requested Visits Authorized [id number] Closed Auto-Generate d Referral 08/28/2021 09/27/2022 1 1 Reason Comments Results Orders Reason Comments B-12 Injection Reason Comments Orders B12 Reason Comments Refill Request Reason Comments Results Reason Comments Ear Pain Headache x 2 days Reason Onset Date Comments Refill Request 03/19/2022 Reason Onset Date Comments Refill Request 05/18/2022 Reason Comments Head Congestion Ear pain, sinus drai nage, cough, congestion x3 days Reason Comments F/U 1 month Reason Comments Behavioral Health Social Work Reason Comments Acute Visit Possible STD,yeast, UTI, BV Reason Comments Results Lab Results Reason Comments Insurance Authorization [employer] Reason Comments Vaginal Problem Concerns for pregnan cy, pelvic pain, missed menses Reason Comments Neck Mass Mass on right side o f neck, feeling movement in lower left abdomen x 2 days Reason Comments Vaginal Problem Possible yeast infec tion x 2 days Reason Comments Ear Pain left ear drainage x 3 days, upper left tooth pain x 1.5 days Reason Onset Date Comments Refill Request Refill Request 10/06/2022 Reason Onset Date Comments Refill Request 10/06/2022 Reason Comments Ear Pain Right ear pain and i rritated right eye x 1 day Reason Comments Follow Up Medication follow fo r depression/anxiety Reason Comments UTI Urgency Reason Comments Results BV Reason Onset Date Comments Refill Request 01/05/2023 Reason Comments Vaginal Problem Itch and smell x 2wk s Reason Comments Patient Update Reason Comments Sinus Problem Care Teams (unrecognized sec tion and content) Trader Fixed Income Relationship Specialty Start Date End Date Erlin aLwson MD [address] [place] [address] PCP - General 12/23/09 Trader Fixed Income Relationship Specialty [place] [address] [place] [id number] PCP - General 12/23/09 Trader Fixed Income Relationship Specialty [place] [address] [place] [id number] PCP - General 12/23/09 Trader Fixed Income Relationship Specialty Start Date End Date Erlin Lawson MD [address] [place] [address] PCP - General 12/23/09 Trader Fixed Income Relationship Specialty Start Date End Date Erlin Lawson MD [address] [facility] [address] PCP - General 12/23/09 Trader Fixed Income Relationship Specialty Start Date End Date Erlin Lawson MD [address] [place] [address] PCP - General 12/23/09 Trader Fixed Income Relationship Specialty Start Date End Date Erlin Lawson MD [facility] [place] [address] PCP - General 12/23/09 Trader Fixed Income Relationship Specialty Start Date End Date Erlin Lawson MD [address] [place] [address] PCP - General 12/23/09 Trader Fixed Income Relationship Specialty Start Date End Date Erlin Lawson MD [address] [facility] [place] [address] PCP - General 12/23/09 Trader Fixed Income Relationship Specialty Start Date End Date Erlin Lawson MD [address] [facility] [place] [address] PCP - General 12/23/09 Trader Fixed Income Relationship Specialty Start Date End Date Erlin Lawson MD [address] [facility] [place] [address] PCP - General 12/23/09 Trader Fixed Income Relationship Specialty Start Date End Date Erlin Lawson MD [address] [place] [address], [place] [address] PCP - General 12/23/09 Trader Fixed Income Relationship Specialty Start Date End Date Erlin Lawson MD [facility] [place] [address] PCP - General 12/23/09 Trader Fixed Income Relationship Specialty Start Date End Date Erlin Lawson MD [address] [facility] [place] [address] PCP - General 12/23/09 Trader Fixed Income Relationship Specialty Start Date End Date Erlin Lawson MD [address] [facility] [place] [address] PCP - General 12/23/09 Trader Fixed Income Relationship Specialty Start Date End Date Erlin Lawson MD [address] [facility] [place] [address] PCP - General 12/23/09 Trader Fixed Income Relationship Specialty Start Date End Date Erlin Lawson MD [facility] [place] [address] PCP - General 12/23/09 Trader Fixed Income Relationship Specialty Start Date End Date Erlin Lawson MD [address] [place], [place] [address] PCP - General 12/23/09 Trader Fixed Income Relationship Specialty Start Date End Date Erlin Lawson MD [address] [place], [place] [id number] PCP General 12/23/09 Trader Fixed Income Relationship Specialty Start Date End Date Erlin Lawson MD [address] [place], [place] [address] PCP General 12/23/09 Trader Fixed Income Relationship Specialty Start Date End Date Erlin Lawson MD [address] [place], [place] [address] PCP General 12/23/09 Trader Fixed Income Relationship Specialty Start Date End Date Erlin Lawson MD [address] [place], [place] [id number] [facility] General 12/23/09 Trader Fixed Income Relationship Specialty Start Date End Date Erlin Lawson MD [address] [place], [place] [id number] [facility] General 12/23/09 INFORMATION SOURCE (unrecogn ized section and content) FOR RECORDS PERTAINING TO PATIENTS WHO ARE OR HAVE BEEN ENROLLED IN A CHEMICAL DEPENDENCY/SUBSTANCEABUSE PROGRAM, SOME INFORMATION MAY BE OMITTED. This clinical summary was aggregated from multiple sources. Caution should be exercised in using it in the provision of clinical care. This summary normalizes information from multiple sources, and as a consequence, information in this document may materially change the coding, format and clinical context of patient data. In addition, data may be omitted in some cases. CLINICAL DECISIONS SHOULD BE BASED ON THE PRIMARY CLINICAL RECORDS. [facility] provides no warranty or guarantee of the accuracy or completeness of information in this document.
[2023-06-09 22:06] LABS: Chlamydia By Nucleic Acid AMP Negative (Negative); Gonococcus By Nucleic Acid AMP Negative (Negative)
== END | disposition home or self-care (01) ==
PROVIDERS: PCP Family Medicine; Referring Provider Nurse Practitioner Women's Health; Visit Provider Nurse Practitioner Women's Health
DX: N89.8 Other specified noninflammatory disorders of vagina (principal)
CPT/HCPCS: 87070; 87077; 87186; 87205; 87491; 87591

== ENCOUNTER → 2023-12-12 | Outpatient (CLI) | payer OTHER, SELFPAY ==
[2023-12-15 13:09] LABS: HPV APTIMA, High Risk Negative (Negative)
== END | disposition home or self-care (01) ==
PROVIDERS: PCP Family Medicine; Visit Provider Nurse Practitioner Family
DX: Z12.4 Encounter for screening for malignant neoplasm of cervix (principal)
CPT/HCPCS: 87624; 88175; G0145